=== PATIENT | male | born 1925 | race Caucasian/White ===

== ENCOUNTER 2016-03-24 14:39 | Emergency (ER) | payer MEDICARE, OTHER ==
[~2016-03-24] VITALS: Ht 165.1 cm; Wt 47.0 kg
[~2016-03-24 14:39] MED LIST: AMLO5 PO; ATOR1TAB18 PO; Aspirin Chew PO; GABA300C5 PO; IPRAAER INH; ISOS30TA3 PO; LEVA500T PO; METO25TA3 PO; MIRA25TA PO; MIRT1TAB PO; NEXI40CA PO; NITR1SUB3 SL; PLAV75TA29 PO; POLY17S PO; PRED10 PO; RANI150T PO; TAMS0.4C4 PO
[2016-03-24 14:59] VITALS: BP 148/69; PULSE 93; RESP 18; TEMP 98.3; O2SAT 94
[2016-03-24] MEDS ORDERED: NEXI40CA PO (15:12)
--- NOTE | 2016-03-24 15:29 | PD ---
HPI Chief Complaint: Headache Time Seen by Provider: 15:19 Travel History International Travel<30 days: No Contact w/Intl Traveler<30days: No Traveled to known affect area: No History of Present Illness HPI 89-year-old male with history of multiple medical issues, nursing notes reviewed , presents to the ER today because he has had several days' history of coughing with clear phlegm, sore throat, headaches, malaise, and nausea. He does not know of any sick contacts. He denies any chest pains, shortness of breath, fevers, or any other symptoms. 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) Cardiac Catheterization: Yes Cardiovascular Problems: Yes (STENT) High Cholesterol: Yes Chemotherapy: No Chest Pain: No Congestive Heart Failure: Yes COPD: Yes Cerebrovascular Accident: No Coronary Artery Disease: Yes Diabetes: Yes Diminished Hearing: Yes ([place]) Endocrine: No Gastrointestinal Disorders: Yes (DIARRHEA, CONSTGIPATION) GERD: Yes Genitourinary: Yes (FREQUENCY, INCONTINENCE) Hepatitis: No Hiatal Hernia: No Hypertension: No Immune Disorder: No Implanted Vascular Access Dvce: Yes Kidney Stones: No Musculoskeletal: No Neurologic: Yes Psychiatric: No Reproductive: No Respiratory: Yes (COPD) Immunizations Current: Yes Migraines: No Radiation Therapy: No Renal Failure: No Seizures: No Sleep Apnea: No Thyroid Disease: No Ulcer: No Past Surgical History Abdominal Surgery: No AICD: No Arteriovenous Shunt: No Body Medical Devices: HEART STENTS Cardiac Surgery: Yes (STENTS) Coronary Stent: Yes Ear Surgery: No Endocrine Surgery: No Eye Surgery: Yes (RIGHT EYE CATARACT) Genitourinary Surgery: Yes Gynecologic Surgery: No Hysterectomy: No Insulin Pump: No Joint Replacement: No Oral Surgery: Yes (T & A) Pacemaker: No Thoracic Surgery: No Other Surgery: Yes (HAD COLONOSCOPY WITH POLYPS REMOVED 04/18-BENIGN) Social History Alcohol Use: Yes (RARELY) Tobacco Use: No (QUIT 07/2008) Substance Use: No Allergies-Medications (Allergen,Severity, Reaction): Coded Allergies: No Known Allergies (Verified , 02/01/16) Reported Meds & Prescriptions Reported Meds & Active Scripts Active Levaquin (Levofloxacin) 500 Mg Tab 500 Mg PO DAILY Prednisone 10 Mg Tab 10 Mg PO DAILY Metoprolol Tartrate 25 Mg Tab 25 Mg PO BID Isosorbide Mononitrate ER (Isosorbide Mononitrate) 30 Mg Phani 90 Mg PO DAILY@07 [Aspirin Chew] 81 MG Chew 81 Mg PO DAILY Norvasc (Amlodipine Besylate) 5 Mg Tab 2.5 Mg PO DAILY@1400 Reported Nexium (Esomeprazole DR) 40 Mg Capdr 40 Mg PO DAILY Mirtazapine 7.5 Mg Tab 7.5 Mg PO HS Myrbetriq (Mirabegron) 25 Mg Tab 25 Mg PO DAILY Tamsulosin (Tamsulosin HCl) 0.4 Mg Cap 0.4 Mg PO HS Ranitidine (Ranitidine HCl) 150 Mg Tab 150 Mg PO DAILY Polyethylene Glycol 3350 Powder (Polyethylene Glycol) 17 Gm Pow 17 Gm PO DAILY Plavix (Clopidogrel Bisulfate) 75 Mg Tab 75 Mg PO DAILY Nitroglycerin SL (Nitroglycerin) 0.4 Mg Subl 0.4 Mg SL DIRECTED PRN ONE TABLET UNDER THE TONGUE NEEDED FOR CHEST PAIN, MAY REPEAT EVERY FIVE MINUTES FOR A TOTAL OF 3 DOSES OR CALL 911 IF NO RELIEF Gabapentin 300 Mg Cap 300 Mg PO HS Combivent Respimat Inh (Ipratropium-Albuterol Inh) 20-100 Chcf/Act Aero 1 Puff INH QID Atorvastatin (Atorvastatin Calcium) 80 Mg Tab 80 Mg PO HS Review of Systems Except as stated in HPI: all other systems reviewed are Neg Physical Exam Narrative GENERAL: Well-nourished, well-developed elderly white male patient in no acute distress. Awake, alert, oriented 3. SKIN: Warm and dry. HEAD: Normocephalic. EYES: No scleral icterus. No injection or drainage. ENT: Mucosa pink and moist. Mild erythema with no exudates. No uvular edema. No uvular, palatal, or tonsillar deviation. Airway patent. NECK: Supple, trachea midline. CARDIOVASCULAR: Regular rate and rhythm without murmurs, gallops, or rubs. RESPIRATORY: Breath sounds equal bilaterally. No accessory muscle use. GASTROINTESTINAL: Abdomen soft, mild diffuse tenderness without guarding or rebound, nondistended. MUSCULOSKELETAL: No cyanosis, or edema. BACK: Nontender without obvious deformity. No CVA tenderness. Data Data Last Documented VS Vital Signs Date Time Temp Pulse Resp B/P Pulse Ox O2 Delivery O2 Flow Rate FiO2 03/24/16 17:32 92 18 171/76 96 Room Air 03/24/16 14:59 98.3 Orders Complete Blood Count With Diff (03/24/16 15:20) Comprehensive Metabolic Panel (03/24/16 15:20) Blood Culture (03/24/16 15:20) Group A Rapid Strep Screen (03/24/16 15:20) Ecg Monitoring (03/24/16 15:20) Iv Access Insert/Monitor (03/24/16 15:20) Oximetry (03/24/16 15:20) Sodium Chloride 0.9% Flush (Ns Flush) (03/24/16 15:30) Ondansetron Inj (Zofran Inj) (03/24/16 15:30) Sodium Chlorid 0.9% 500 Ml Inj (Ns 500 M (03/24/16 15:30) Influenzae A/B Antigen (03/24/16 15:20) Strep Culture (Group A) (03/24/16 15:35) Chest, Single Ap (03/24/16 16:48) Labs Laboratory Tests Test 03/24/16 15:40 White Blood Count 10.9 TH/MM3 Red Blood Count 4.05 MIL/MM3 Hemoglobin 12.1 GM/DL Hematocrit 36.7 % Mean Corpuscular Volume 90.5 FL Mean Corpuscular Hemoglobin 29.9 PG Mean Corpuscular Hemoglobin 33.0 % Concent Red Cell Distribution Width 14.1 % Platelet Count 94 TH/MM3 Mean Platelet Volume 9.8 FL Neutrophils (%) (Auto) 93.4 % Lymphocytes (%) (Auto) 1.7 % Monocytes (%) (Auto) 4.4 % Eosinophils (%) (Auto) 0.4 % Basophils (%) (Auto) 0.1 % Neutrophils # (Auto) 10.2 TH/MM3 Lymphocytes # (Auto) 0.2 TH/MM3 Monocytes # (Auto) 0.5 TH/MM3 Eosinophils # (Auto) 0.0 TH/MM3 Basophils # (Auto) 0.0 TH/MM3 CBC Comment AUTO DIFF Differential Comment AUTO DIFF CONFIRMED Platelet Estimate LOW Platelet Morphology Comment NORMAL Sodium Level 141 MEQ/L Potassium Level 4.2 MEQ/L Chloride Level 105 MEQ/L Carbon Dioxide Level 27.6 MEQ/L Anion Gap 8 MEQ/L Blood Urea Nitrogen 23 MG/DL Creatinine 0.74 MG/DL Estimat Glomerular Filtration 100 ML/MIN Rate Random Glucose 126 MG/DL Calcium Level 8.0 MG/DL Total Bilirubin 0.7 MG/DL Aspartate Amino Transf 25 U/L (AST/SGOT) Alanine Aminotransferase 44 U/L (ALT/SGPT) Alkaline Phosphatase 63 U/L Total Protein 5.5 GM/DL Albumin 2.5 GM/DL MDM Medical Decision Making Medical Screen Exam Complete: Yes Emergency Medical Condition: Yes Medical Record Reviewed: Yes Interpretation(s) Laboratory Tests Test 03/24/16 15:40 Red Blood Count 4.05 MIL/MM3 (4.50-5.90) Hemoglobin 12.1 GM/DL (13.0-17.0) Hematocrit 36.7 % (39.0-51.0) Platelet Count 94 TH/MM3 (150-450) Neutrophils (%) (Auto) 93.4 % (16.0-70.0) Lymphocytes (%) (Auto) 1.7 % (9.0-44.0) Neutrophils # (Auto) 10.2 TH/MM3 (1.8-7.7) Lymphocytes # (Auto) 0.2 TH/MM3 (1.0-4.8) Blood Urea Nitrogen 23 MG/DL (7-18) Random Glucose 126 MG/DL (74-106) Calcium Level 8.0 MG/DL (8.5-10.1) Total Protein 5.5 GM/DL (6.4-8.2) Albumin 2.5 GM/DL (3.4-5.0) Differential Diagnosis Nausea, fatigue, coughing, sore throat, malaiseviral syndrome versus dehydration versus metabolic issues versus sepsis versus pneumonia versus bronchitis Narrative Course Patient doesn't have influenza or strep. Vital signs are stable in the ER. Lab work did not indicate any significant metabolic issues or dehydration. His chest x-ray is unremarkable for any signs of acute pneumonia. His suspect that some of the symptoms may be secondary to recent influenza. He may have some underlying bronchitis as well. My plan would be to treat him for bronchitis and have him follow-up with primary care physician. Return for any worsening symptoms as needed. The plan has discussed with him and he is agreeable. Diagnosis Primary Impression: Bronchitis Med/Other Pt SpecificInfo: Prescription(s) given Scripts Azithromycin (Zithromax Z-Louie)250 Mg [id number] Mg PO DIRECTED #1 DSPK Ref 0 500 MG (2 tabs) day 1, then 1 tab days 2-5. Prov:Abraham Ramirez MD 03/24/16 Disposition: 01 DISCHARGE HOME Condition: Stable Abraham Ramirez MD Mar 24, 2016 15:29
[2016-03-24 15:30] VITALS: RESP 16; O2SAT 95
[2016-03-24] MEDS ORDERED: SODIUM CHLORIDE 0.9% FLUSH 5 ML FLUSH IVF PRN (15:30)
[2016-03-24] MEDS ORDERED: SODIUM CHLORID 0.9% 500 ML INJ 500 ML IV ONE (15:30)
[2016-03-24] MEDS ORDERED: ONDANSETRON HCL 4 MG/2 ML VIAL IVP ONE (15:30)
[2016-03-24 16:03] LABS: AUTOMATED NEUTROPHIL # 10.2 TH/MM3 (1.8-7.7); BASOPHIL % 0.1 % (0.0-2.0); EOSINOPHIL % 0.4 % (0.0-4.0); HEMATOCRIT 36.7 % (39.0-51.0); LYMPH % 1.7 % (9.0-44.0); LYMPHOCYTE # 0.2 TH/MM3 (1.0-4.8); MEAN CELL VOLUME 90.5 FL (80.0-100.0); MEAN CORPUSCULAR HEMOGLOBIN 29.9 PG (27.0-34.0); MONO % 4.4 % (0.0-8.0); NEUT % 93.4 % (16.0-70.0); PLATELET COUNT 94 TH/MM3 (150-450); RED BLOOD COUNT 4.05 MIL/MM3 (4.50-5.90); RED CELL DISTRIBUTION WIDTH 14.1 % (11.6-17.2); WHITE BLOOD COUNT 10.9 TH/MM3 (4.0-11.0)
[2016-03-24 16:09] LABS: HEMO FLAGS AUTO DIFF
[2016-03-24 16:12] LABS: CHLORIDE 105 MEQ/L (98-107); POTASSIUM 4.2 MEQ/L (3.5-5.1); SODIUM (NA) 141 MEQ/L (136-145)
[2016-03-24 16:15] LABS: ANION GAP 8 MEQ/L (5-15); BICARBONATE 27.6 MEQ/L (21.0-32.0)
[2016-03-24 16:16] LABS: BLOOD UREA NITROGEN 23 MG/DL (7-18)
[2016-03-24 16:18] LABS: ALT (GPT) 44 U/L (12-78)
[2016-03-24 16:19] LABS: AST (GOT) 25 U/L (15-37); GLOMERULAR FILTRATION RATE 100 ML/MIN (>89)
[2016-03-24 16:20] LABS: TOTAL BILIRUBIN ADULT 0.7 MG/DL (0.2-1.0)
[2016-03-24 16:21] LABS: ALKALINE PHOSPHATASE 63 U/L (45-117)
[2016-03-24 16:34] VITALS: BP 102/57; PULSE 78; RESP 18; O2SAT 97
[2016-03-24 17:05] LABS: PLATELET ESTIMATE SMEAR LOW (NORMAL); PLATELET MORPHOLOGY NORMAL (NORMAL); SCAN/DIFF AUTO DIFF CONFIRMED
[2016-03-24 17:32] VITALS: BP 171/76; PULSE 92; RESP 18; O2SAT 96
--- NOTE | 2016-03-24 17:40 | RADHPO ---
EXAM DATE/TIME: 03/24/2016 17:19 [facility] COMPARISON: CHEST SINGLE AP, February 01, 2016, 18:35. INDICATIONS : Cough. MEDICAL HISTORY : Congestive heart failure. Hypercholesterolemia. Chronic obstructive pulmonary disease. CAD, PVD, Hyperlipidemia, GERD, Enlarged prostate, Diabetes, Skin cancer SURGICAL HISTORY : Coronary artery stent. Angioplasty ENCOUNTER: Initial ACUITY: 3 months PAIN SCORE: 0/10 LOCATION: Bilateral chest FINDINGS: The heart and mediastinal structures are normal. The pulmonary vascular pattern is normal. The lungs are clear. CONCLUSION: No acute cardiopulmonary disease. John Carias MD on March 24, 2016 at 17:37 Board Certified Radiologist. This report was verified electronically.
[2016-03-24] MEDS ORDERED: ZITHTAB PO (17:43)
== END 2016-03-24 18:09 | disposition home or self-care (01) ==
LOC: PHED 14:39
DX: J40 Bronchitis, not specified as acute or chronic (principal); R51 Headache; E78.00 Pure hypercholesterolemia, unspecified; J44.9 Chronic obstructive pulmonary disease, unspecified; I50.9 Heart failure, unspecified; I25.10 Atherosclerotic heart disease of native coronary artery without angina pectoris; E11.9 Type 2 diabetes mellitus without complications; K21.9 Gastro-esophageal reflux disease without esophagitis; Z79.01 Long term (current) use of anticoagulants; Z87.891 Personal history of nicotine dependence
CPT/HCPCS: 71010; 80053; 85025; 87040; 87081; 87804; 87880; 96360; 99284; J7040

== ENCOUNTER 2016-10-21 16:14 | Observation (INO) | payer MEDICARE, OTHER ==
[~2016-10-21] VITALS: Ht 167.6 cm; Wt 47.2 kg
[2016-10-21] VITALS (8 sets, daily range): BP systolic 118–203; BP diastolic 52–85; PULSE 60–71; RESP 15–20; TEMP 97.7–97.8; O2SAT 95–100
[~2016-10-21 16:14] MED LIST changes: +ZITHTAB PO
[2016-10-21] MEDS ORDERED: IPRASOL INH (16:30)
[2016-10-21] MEDS ORDERED: ASPI-110 PO (16:30)
[2016-10-21] MEDS: RESP: ALBUTEROL 2.5 MG/IPRATROPIUM 0.5 MG NEB (SCH) INH (16:43)
[2016-10-21] MEDS ORDERED: SODIUM CHLORIDE 0.9% FLUSH 10 ML FLUSH IVF PRN (16:45)
[2016-10-21] MEDS ORDERED: ASPIRIN 81 MG CHEW TAB PO ONE (16:45)
[2016-10-21] MEDS ORDERED: methylPREDNISolone SOD SUCC 125 MG/2 ML VIAL IVP ONE (16:45)
[2016-10-21 17:20] LABS: AUTOMATED NEUTROPHIL # 5.8 TH/MM3 (1.8-7.7); BASOPHIL # 0.1 TH/MM3 (0-0.2); BASOPHIL % 0.7 % (0.0-2.0); EOSINOPHIL # 0.1 TH/MM3 (0-0.4); EOSINOPHIL % 1.2 % (0.0-4.0); HEMATOCRIT 42.1 % (39.0-51.0); HEMO FLAGS DIFF FINAL; LYMPH % 26.2 % (9.0-44.0); LYMPHOCYTE # 2.3 TH/MM3 (1.0-4.8); MEAN CELL VOLUME 89.7 FL (80.0-100.0); MEAN CORPUSCULAR HEMOGLOBIN 28.7 PG (27.0-34.0); NEUT % 64.9 % (16.0-70.0); PLATELET COUNT 128 TH/MM3 (150-450); RED BLOOD COUNT 4.69 MIL/MM3 (4.50-5.90); RED CELL DISTRIBUTION WIDTH 14.2 % (11.6-17.2); WHITE BLOOD COUNT 8.9 TH/MM3 (4.0-11.0)
[2016-10-21 17:23] LABS: APTT (PATIENT) 26.4 SEC (24.3-30.1); PROTHROMBIN TIME - PATIENT 10.9 SEC (9.8-11.6)
[2016-10-21 17:27] LABS: CHLORIDE 105 MEQ/L (98-107); POTASSIUM 4.4 MEQ/L (3.5-5.1); SODIUM (NA) 140 MEQ/L (136-145)
[2016-10-21 17:31] LABS: ANION GAP 6 MEQ/L (5-15); BICARBONATE 28.7 MEQ/L (21.0-32.0); BLOOD UREA NITROGEN 25 MG/DL (7-18); MAGNESIUM 2.2 MG/DL (1.5-2.5)
[2016-10-21 17:34] LABS: ALT (GPT) 40 U/L (12-78); AST (GOT) 35 U/L (15-37); GLOMERULAR FILTRATION RATE 76 ML/MIN (>89)
[2016-10-21 17:35] LABS: TOTAL BILIRUBIN ADULT 0.5 MG/DL (0.2-1.0)
[2016-10-21 17:37] LABS: ALKALINE PHOSPHATASE 74 U/L (45-117); CREATINE KINASE 132 U/L (39-308)
--- NOTE | 2016-10-21 17:41 | RADRPT ---
EXAM DATE/TIME: 10/21/2016 16:53 [facility] COMPARISON: CHEST SINGLE AP, March 24, 2016, 17:19. INDICATIONS : Short of breath. MEDICAL HISTORY : None. SURGICAL HISTORY : None. ENCOUNTER: Initial ACUITY: 1 day PAIN SCORE: 6/10 LOCATION: Bilateral chest FINDINGS: Single AP view of the chest. The lungs are clear. Cardiomediastinal silhouette within normal limits. No evidence of pleural effusion or pneumothorax. CONCLUSION: No acute cardiopulmonary disease identified. James Benedict MD on October 21, 2016 at 17:38 Board Certified Radiologist. This report was verified electronically.
[2016-10-21 17:49] LABS: CKMB 3.3 NG/ML (0.5-3.6)
--- NOTE | 2016-10-21 18:01 | PD ---
HPI Chief Complaint: Respiratory Symptoms Time Seen by Provider: 16:29 Travel History International Travel<30 days: No Contact w/Intl Traveler<30days: No Traveled to known affect area: No History of Present Illness HPI 89-year-old male with history of COPD, PVD, CAD, here for evaluation of shortness of breath and palpitations. Patient also relays feeling intermittent chest pressure for the last 5 days. He has had a cough productive of yellowish sputum. No fevers. Currently he is feeling a slight substernal chest pressure. Pain is nonradiating. No modifying factors. PFSH Past Medical History Hx Anticoagulant Therapy: Yes Arthritis: No Asthma: No Autoimmune Disease: No Heart Rhythm Problems: Yes (UNKNOWN) Cancer: Yes ([place] OF SKIN REMOVED) Cardiac Catheterization: Yes Cardiovascular Problems: Yes (STENT) High Cholesterol: Yes Chemotherapy: No Chest Pain: No Congestive Heart Failure: Yes COPD: Yes Cerebrovascular Accident: No Coronary Artery Disease: Yes Diabetes: Yes Patient Takes Glucophage: No Diminished Hearing: Yes ([place]) Endocrine: No Gastrointestinal Disorders: Yes (DIARRHEA, CONSTGIPATION) GERD: Yes Genitourinary: Yes (FREQUENCY, INCONTINENCE) Headaches: No Hepatitis: No Hiatal Hernia: No Hypertension: Yes Immune Disorder: No Implanted Vascular Access Dvce: Yes Kidney Stones: No Medical other: Yes (BPH,FREQUENT URINATION WHEN LYING DOWN,GERD) Musculoskeletal: No Neurologic: Yes Psychiatric: No Reproductive: No Respiratory: Yes (COPD) Immunizations Current: Yes Migraines: No Radiation Therapy: No Renal Failure: No Seizures: No Sleep Apnea: No Thyroid Disease: No Ulcer: No Influenza Vaccination: Yes ?: Not Past Surgical History Abdominal Surgery: No AICD: No Arteriovenous Shunt: No Body Medical Devices: HEART STENTS Cardiac Surgery: Yes (STENTS) Coronary Stent: Yes Ear Surgery: No Endocrine Surgery: No Eye Surgery: Yes (RIGHT EYE CATARACT) Genitourinary Surgery: Yes Gynecologic Surgery: No Hysterectomy: No Insulin Pump: No Joint Replacement: No Neurologic Surgery: No Oral Surgery: Yes (T & A) Pacemaker: No Thoracic Surgery: No Other Surgery: Yes (HAD COLONOSCOPY WITH POLYPS REMOVED 04/18-BENIGN) Family History Family Myocardial Infarction: Yes (MOTHER & FATHER) Social History Alcohol Use: Yes (RARELY) Tobacco Use: No (QUIT 07/2008) Substance Use: No Allergies-Medications (Allergen,Severity, Reaction): Coded Allergies: No Known Allergies (Verified , 10/21/16) Reported Meds & Prescriptions Reported Meds & Active Scripts Active Metoprolol Tartrate 25 Mg Tab 25 Mg PO BID Isosorbide Mononitrate ER (Isosorbide Mononitrate) 30 Mg Phani 90 Mg PO DAILY@07 Norvasc (Amlodipine Besylate) 5 Mg Tab 2.5 Mg PO DAILY@1400 Reported Duoneb (Ipratropium-Albuterol Neb) 0.5-2.5 Mg/3 Ml Neb 1 Nebule INH BID Aspirin 81 (Aspirin) 81 Mg Tabdr 81 Mg PO DAILY Nexium (Esomeprazole DR) 40 Mg Capdr 40 Mg PO DAILY Mirtazapine 7.5 Mg Tab 15 Mg PO HS Myrbetriq (Mirabegron) 25 Mg Tab 25 Mg PO DAILY Ranitidine (Ranitidine HCl) 150 Mg Tab 150 Mg PO DAILY Polyethylene Glycol 3350 Powder (Polyethylene Glycol) 17 Gm Pow 17 Gm PO DAILY Plavix (Clopidogrel Bisulfate) 75 Mg Tab 75 Mg PO DAILY Nitroglycerin SL (Nitroglycerin) 0.4 Mg Subl 0.4 Mg SL DIRECTED PRN ONE TABLET UNDER THE TONGUE NEEDED FOR CHEST PAIN, MAY REPEAT EVERY FIVE MINUTES FOR A TOTAL OF 3 DOSES OR CALL 911 IF NO RELIEF Gabapentin 300 Mg Cap 300 Mg PO HS Combivent Respimat Inh (Ipratropium-Albuterol Inh) 20-100 Long-Term/Act Aero 1 Puff INH QID Atorvastatin (Atorvastatin Calcium) 80 Mg Tab 80 Mg PO HS Review of Systems Except as stated in HPI: all other systems reviewed are Neg Physical Exam Narrative GENERAL: Well-developed, well-nourished, elderly-appearing male, comfortable, no acute distress. SKIN: Focused skin assessment warm/dry. Dry/scaly skin to bilateral upper and lower extremities. HEAD: Atraumatic. Normocephalic. EYES: Pupils equal and round. No scleral icterus. No injection or drainage. ENT: No nasal bleeding or discharge. Mucous membranes pink and moist. NECK: Trachea midline. No JVD. CARDIOVASCULAR: Regular rate and rhythm. Normal capillary refill in all 4 extremities. RESPIRATORY: No accessory muscle use. Inspiratory and expiratory wheezes bilaterally. Breath sounds equal bilaterally. No respiratory distress. GASTROINTESTINAL: Abdomen soft, nontender, nondistended. MUSCULOSKELETAL: No obvious deformities. No clubbing. No cyanosis. No edema. NEUROLOGICAL: Awake and alert. No obvious cranial nerve deficits. Motor grossly within normal limits. Normal speech. PSYCHIATRIC: Appropriate mood and affect; insight and judgment normal. Data Data Last Documented VS Vital Signs Date Time Temp Pulse Resp B/P (MAP) Pulse Ox O2 Delivery O2 Flow Rate FiO2 10/21/16 16:45 60 20 137/60 (85) 98 Room Air 10/21/16 16:23 97.7 Orders Orders Electrocardiogram (10/21/16 16:37) Ckmb (Isoenzyme) Profile (10/21/16 16:37) Complete Blood Count With Diff (10/21/16 16:37) Comprehensive Metabolic Panel (10/21/16 16:37) Magnesium (Mg) (10/21/16 16:37) Prothrombin Time / Inr (Pt) (10/21/16 16:37) Act Partial Throm Time (Ptt) (10/21/16 16:37) Troponin I (10/21/16 16:37) Lipase (10/21/16 16:37) Chest, Single Ap (10/21/16 16:37) Ecg Monitoring (10/21/16 16:37) Bilateral Bp Monitoring (10/21/16 16:37) Iv Access Insert/Monitor (10/21/16 16:37) Oximetry (10/21/16 16:37) Aspirin Chew (Aspirin Chew) (10/21/16 16:45) Sodium Chloride 0.9% Flush (Ns Flush) (10/21/16 16:45) Methylprednisolone So Succ Inj (Solumedr (10/21/16 16:45) Albuterol-Ipratropium Neb (Duoneb Neb) (10/21/16 16:45) CKMB (10/21/16 16:30) CKMB% (10/21/16 16:30) Levofloxacin (Levaquin) (10/21/16 18:30) Place In Observation (10/21/16 ) Vital Signs (Adult) Q4H (10/21/16 18:19) Activity Oob With Assistance (10/21/16 18:19) [place] / Telemetry .CONTINUOUS (10/21/16 18:19) Diet Heart Healthy (10/21/16 Dinner) Sodium Chloride 0.9% Flush (Ns Flush) (10/21/16 18:30) Sodium Chloride 0.9% Flush (Ns Flush) (10/21/16 21:00) Ondansetron Inj (Zofran Inj) (10/21/16 18:30) Comprehensive Metabolic Panel (10/22/16 06:00) Complete Blood Count With Diff (10/22/16 06:00) Enoxaparin Inj (Lovenox Inj) (10/21/16 18:30) Scd Bilateral/Knee High [place].BID (10/21/16 18:19) Morphine Inj (Morphine Inj) (10/21/16 18:30) Naloxone Inj (Narcan Inj) (10/21/16 18:30) Sennosides (Senokot) (10/21/16 18:30) Lactulose Liq (Lactulose Liq) (10/21/16 18:30) Admit Order (Ed Use Only) (10/21/16 18:22) Amlodipine (Norvasc) (10/22/16 14:00) Aspirin Ec (Ecotrin Ec) (10/22/16 09:00) Atorvastatin (Lipitor) (10/21/16 21:00) Clopidogrel (Plavix) (10/22/16 09:00) Gabapentin (Neurontin) (10/21/16 21:00) Isosorbide Mononitrate (Imdur) (10/22/16 07:00) Metoprolol Tartrate (Lopressor) (10/21/16 21:00) Mirtazapine (Remeron) (10/21/16 21:00) Polyethylene Glycol (Miralax) (10/22/16 09:00) (Nf) Esomeprazole Dr (Nexium) (10/22/16 09:00) (Nf) Mirabegron (Myrbetriq) (10/22/16 09:00) (Nf) Ranitidine (10/22/16 09:00) Labs Laboratory Tests Test 10/21/16 16:30 White Blood Count 8.9 TH/MM3 Red Blood Count 4.69 MIL/MM3 Hemoglobin 13.5 GM/DL Hematocrit 42.1 % Mean Corpuscular Volume 89.7 FL Mean Corpuscular Hemoglobin 28.7 PG Mean Corpuscular Hemoglobin Concent 32.0 % Red Cell Distribution Width 14.2 % Platelet Count 128 TH/MM3 Mean Platelet Volume 12.0 FL Neutrophils (%) (Auto) 64.9 % Lymphocytes (%) (Auto) 26.2 % Monocytes (%) (Auto) 7.0 % Eosinophils (%) (Auto) 1.2 % Basophils (%) (Auto) 0.7 % Neutrophils # (Auto) 5.8 TH/MM3 Lymphocytes # (Auto) 2.3 TH/MM3 Monocytes # (Auto) 0.6 TH/MM3 Eosinophils # (Auto) 0.1 TH/MM3 Basophils # (Auto) 0.1 TH/MM3 CBC Comment DIFF FINAL Differential Comment Prothrombin Time 10.9 SEC Prothromb Time International Ratio 1.0 RATIO Activated Partial Thromboplast Time 26.4 SEC Blood Urea Nitrogen 25 MG/DL Creatinine 0.94 MG/DL Random Glucose 113 MG/DL Total Protein 7.4 GM/DL Albumin 3.5 GM/DL Calcium Level 9.0 MG/DL Magnesium Level 2.2 MG/DL Alkaline Phosphatase 74 U/L Aspartate Amino Transf (AST/SGOT) 35 U/L Alanine Aminotransferase (ALT/SGPT) 40 U/L Total Bilirubin 0.5 MG/DL Sodium Level 140 MEQ/L Potassium Level 4.4 MEQ/L Chloride Level 105 MEQ/L Carbon Dioxide Level 28.7 MEQ/L Anion Gap 6 MEQ/L Estimat Glomerular Filtration Rate 76 ML/MIN Total Creatine Kinase 132 U/L Creatine Kinase MB 3.3 NG/ML Troponin I LESS THAN 0.02 NG/ML Lipase 197 U/L MDM Medical Decision Making Medical Screen Exam Complete: Yes Emergency Medical Condition: Yes Medical Record Reviewed: Yes Interpretation(s) EKG: Sinus, rate 59, normal axis, incomplete RBBB, Q waves in septal leads, no acute ischemic abnormalities. Essentially unchanged from prior. Differential Diagnosis COPD exacerbation, ACS, pneumothorax, peritonitis, PE, pneumonia, bronchitis Narrative Course Vital signs show heart rate 60, blood pressure 137/60, pulse ox 98% on room air , oral temp of 97.7F. CBC is unremarkable. CMP is unremarkable. Lipase is 197. Cardiac enzymes are negative. Chest x-ray: No acute cardiopulmonary disease. Patient was given 3 DuoNeb treatments and IV Solu-Medrol with resolution of wheezing. Case discussed with scout professional sports Dr. Ramirez covering for Dr. Torres the patient' s [employer], and recommends that the patient be admitted to the chest pain center for further cardiac evaluation. Case discussed with hospitalist Dr. Clifford who will admit the patient to his service to the chest pain center. The patient will also be given a dose of Levaquin for his cough productive of yellowish sputum, likely bronchitis. The patient and the patient's significant other were made aware of all findings and plan for admission to the chest pain center. Diagnosis Primary Impression: Chest pain Qualified Codes: R07.9 - Chest pain, unspecified Additional Impression: COPD exacerbation Admitting Information Admitting Physician Requests: Ravindra Cantor MD Oct 21, 2016 18:01
[2016-10-21] MEDS ORDERED: LACTULOSE SYRUP 20 GM/30 ML CUP PO PRN (18:30)
[2016-10-21] MEDS ORDERED: NALOXONE HCL 0.4 MG/ML AMP IV PRN (18:30)
[2016-10-21] MEDS ORDERED: LEVOFLOXACIN 500 MG TAB PO ONE (18:30)
[2016-10-21] MEDS ORDERED: SODIUM CHLORIDE 0.9% FLUSH 10 ML FLUSH IV FLUSH PRN (18:30)
[2016-10-21] MEDS ORDERED: SENNOSIDES 8.6 MG TAB PO PRN (18:30)
[2016-10-21] MEDS ORDERED: MORPHINE SULFATE 4 MG/ML INJ IV PRN (18:30)
[2016-10-21] MEDS ORDERED: ONDANSETRON HCL 4 MG/2 ML VIAL IVP PRN (18:30)
--- NOTE | 2016-10-21 18:51 | HHI.HP ---
[facility] Rey Cotter MD Admission Diagnosis Chest pain, COPD exacerbation Diagnoses: Travel History International Travel<30 Days: No Contact w/Intl Traveler <30 Da: No Traveled to Known Affected Are: No History of Present Illness Mr. Saravia is an 89-year-old male. He came into the emergency department today complaining of respiratory symptoms. These included wheezing and coughing. Cough has been productive. He also reported an upper chest pain. History of coronary artery disease. Hypertensive urgency was present admitted but has improved with control of his respiratory symptoms. She does not report exertional related chest pain and did not have recurrent episodes of chest pain. No chest pain is present when I saw him in the emergency department. He does have elements of a COPD exacerbation. COPD exacerbation could be causing his chest pain but he is at risk for infarction as well given a heavy burden of ischemic disease. She denies any vomiting or diarrhea. No fevers reported. Chest x-ray shows no evidence of pneumonia. Review of Systems Constitutional: DENIES: Fever, Chills, Dizziness, Change in appetite Endocrine: DENIES: Heat/cold intolerance, Polydipsia, Polyuria Eyes: DENIES: Blurred vision, Diplopia, Eye pain Ears, nose, mouth, throat: DENIES: Tinnitus, Hearing loss, Vertigo Respiratory: COMPLAINS OF: Cough, Wheezing, Sputum production, Shortness of breath Cardiovascular: COMPLAINS OF: Chest pain, Palpitations, DENIES: Syncope Gastrointestinal: DENIES: Abdominal pain, Black stools, Bloody stools Musculoskeletal: DENIES: Joint pain, Muscle aches, Stiffness Integumentary: DENIES: Abnormal pigmentation, Nail changes, Pruritus Hematologic/lymphatic: DENIES: Bruising Immunologic/allergic: DENIES: Eczema Neurologic: DENIES: Abnormal gait, Headache Psychiatric: DENIES: Anxiety, Confusion, Hallucinations Past Family Social History Past Medical History Coronary artery disease Hyperlipidemia Congestive heart failure COPD Diabetes mellitus type 2 History constipation Gastroesophageal reflux disease Urinary incontinence next line hypertension BPH Past Surgical History Coronary stents Right eye cataract surgery History of genitourinary surgery (prostate) Tonsillectomy Reported Medications Reported Meds & Active Scripts Active Metoprolol Tartrate 25 Mg Tab 25 Mg PO BID Isosorbide Mononitrate ER (Isosorbide Mononitrate) 30 Mg Phani 90 Mg PO DAILY@07 Norvasc (Amlodipine Besylate) 5 Mg Tab 2.5 Mg PO DAILY@1400 Reported Duoneb (Ipratropium-Albuterol Neb) 0.5-2.5 Mg/3 Ml Neb 1 Nebule INH BID Aspirin 81 (Aspirin) 81 Mg Tabdr 81 Mg PO DAILY Nexium (Esomeprazole DR) 40 Mg Capdr 40 Mg PO DAILY Mirtazapine 7.5 Mg Tab 15 Mg PO HS Myrbetriq (Mirabegron) 25 Mg Tab 25 Mg PO DAILY Ranitidine (Ranitidine HCl) 150 Mg Tab 150 Mg PO DAILY Polyethylene Glycol 3350 Powder (Polyethylene Glycol) 17 Gm Pow 17 Gm PO DAILY Plavix (Clopidogrel Bisulfate) 75 Mg Tab 75 Mg PO DAILY Nitroglycerin SL (Nitroglycerin) 0.4 Mg Subl 0.4 Mg SL DIRECTED PRN ONE TABLET UNDER THE TONGUE NEEDED FOR CHEST PAIN, MAY REPEAT EVERY FIVE MINUTES FOR A TOTAL OF 3 DOSES OR CALL 911 IF NO RELIEF Gabapentin 300 Mg Cap 300 Mg PO HS Combivent Respimat Inh (Ipratropium-Albuterol Inh) 20-100 Long Term/Act Aero 1 Puff INH QID Atorvastatin (Atorvastatin Calcium) 80 Mg Tab 80 Mg PO HS Allergies: Coded Allergies: No Known Allergies (Verified , 10/21/16) Active Ordered Medications Administered Medications Medications (Trade) Dose Ordered Sig/Danna Route PRN Reason Start Time Stop Time Status Last Admin Dose Admin Sodium Chloride (NS Flush) 2 ml UNSCH PRN IVF FLUSH AFTER USING IV ACCESS 10/21/16 16:45 10/21/16 16:50 Family History Myocardial infarction in mother Myocardial infarction in father Social History Rare alcohol use No illicit drug abuse Tobacco use, patient quit in 2008 Physical Exam Vital Signs Vital Signs Date Time Temp Pulse Resp B/P (MAP) Pulse Ox O2 Delivery O2 Flow Rate FiO2 10/21/16 16:45 60 20 137/60 (85) 98 Room Air 10/21/16 16:35 64 22 97 Room Air 10/21/16 16:23 97.7 67 18 203/77 (119) 100 Physical Exam GENERAL: This is a well-nourished, well-developed patient, in no apparent distress. SKIN: No rashes, ecchymoses or lesions. Cool and dry. HEAD: Atraumatic. Normocephalic. No temporal or scalp tenderness. EYES: Pupils equal round and reactive. Extraocular motions intact. No scleral icterus. No injection or drainage. ENT: Nose without bleeding, purulent drainage or septal hematoma. Throat without erythema, tonsillar hypertrophy or exudate. Uvula midline. Airway patent. NECK: Trachea midline. No JVD or lymphadenopathy. Supple, nontender, no meningeal signs. CARDIOVASCULAR: Regular rate and rhythm without murmurs, gallops, or rubs. RESPIRATORY: Clear to auscultation. Breath sounds equal bilaterally. No wheezes , rales, or rhonchi. GASTROINTESTINAL: Abdomen soft, non-tender, nondistended. No hepato-splenomegaly , or palpable masses. No guarding. MUSCULOSKELETAL: Extremities without clubbing, cyanosis, or edema. No joint tenderness, effusion, or edema noted. No calf tenderness. Negative Homans sign bilaterally. NEUROLOGICAL: Awake and alert. Cranial nerves II through XII intact. Motor and sensory grossly within normal limits. Five out of 5 muscle strength in all muscle groups. Normal speech. Laboratory Laboratory Tests Test 10/21/16 16:30 White Blood Count 8.9 Red Blood Count 4.69 Hemoglobin 13.5 Hematocrit 42.1 Mean Corpuscular Volume 89.7 Mean Corpuscular Hemoglobin 28.7 Mean Corpuscular Hemoglobin Concent 32.0 Red Cell Distribution Width 14.2 Platelet Count 128 Mean Platelet Volume 12.0 Neutrophils (%) (Auto) 64.9 Lymphocytes (%) (Auto) 26.2 Monocytes (%) (Auto) 7.0 Eosinophils (%) (Auto) 1.2 Basophils (%) (Auto) 0.7 Neutrophils # (Auto) 5.8 Lymphocytes # (Auto) 2.3 Monocytes # (Auto) 0.6 Eosinophils # (Auto) 0.1 Basophils # (Auto) 0.1 CBC Comment DIFF FINAL Differential Comment Prothrombin Time 10.9 Prothromb Time International Ratio 1.0 Activated Partial Thromboplast Time 26.4 Blood Urea Nitrogen 25 Creatinine 0.94 Random Glucose 113 Total Protein 7.4 Albumin 3.5 Calcium Level 9.0 Magnesium Level 2.2 Alkaline Phosphatase 74 Aspartate Amino Transf (AST/SGOT) 35 Alanine Aminotransferase (ALT/SGPT) 40 Total Bilirubin 0.5 Sodium Level 140 Potassium Level 4.4 Chloride Level 105 Carbon Dioxide Level 28.7 Anion Gap 6 Estimat Glomerular Filtration Rate 76 Total Creatine Kinase 132 Creatine Kinase MB 3.3 Troponin I LESS THAN 0.02 Lipase 197 Result Diagram: 10/21/16 1630 10/21/16 1630 Imaging Last Impressions Chest X-Ray 10/21/16 1637 Signed Impressions: Service Date/Time: Friday, October 21, 2016 16:53 - CONCLUSION: No acute cardiopulmonary disease identified. MD Elen Mora VTE Risk Assessment Elen VTE Risk Assessment: Mod/High Risk (score >= 2) Caprini Risk Assessment Model Point Value = 1 Point Value = 2 Point Value = 3 Point Value = 5 Age 41-60 Minor surgery BMI > 25 kg/m2 Swollen legs Varicose veins or History of unexplained or recurrent spontaneous Oral contraceptives or hormone replacement Sepsis (< 1 month) Serious lung disease, including pneumonia (< 1 month) Abnormal pulmonary function Acute myocardial infarction Congestive heart failure (< 1 month) History of inflammatory bowel disease Medical patient at bed rest Age 61-74 Arthroscopic surgery Major open surgery (> 45 min) Laparoscopic surgery (> 45 min) Malignancy Confined to bed (> 72 hours) Immobilizing plaster cast Central venous access Age >= 75 History of VTE Family history of VTE Factor V Leiden Prothrombin [id number] Lupus anticoagulant Anticardiolipin antibodies Elevated serum homocysteine Heparin-induced thrombocytopenia Other congenital or acquired thrombophilia Stroke (< 1 month) Elective arthroplasty Hip, pelvis, or leg fracture Acute spinal cord injury (< 1 month) Prophylaxis Regimen Total Risk Factor Score Risk Level Prophylaxis Regimen 0-1 Low Early ambulation 2 Moderate Order ONE of the following: *Sequential Compression Device (SCD) *Heparin 5000 units SQ BID 3-4 Higher Order ONE of the following medications: *Heparin 5000 units SQ TID *Enoxaparin/Lovenox 40 mg SQ daily (WT < 150 kg, CrCl > 30 mL/min) *Enoxaparin/Lovenox 30 mg SQ daily (WT < 150 kg, CrCl > 10-29 mL/min) *Enoxaparin/Lovenox 30 mg SQ BID (WT < 150 kg, CrCl > 30 mL/min) AND/OR *Sequential Compression Device (SCD) 5 or more Highest Order ONE of the following medications: *Heparin 5000 units SQ TID (Preferred with Epidurals) *Enoxaparin/Lovenox 40 mg SQ daily (WT < 150 kg, CrCl > 30 mL/min) *Enoxaparin/Lovenox 30 mg SQ daily (WT < 150 kg, CrCl > 10-29 mL/min) *Enoxaparin/Lovenox 30 mg SQ BID (WT < 150 kg, CrCl > 30 mL/min) AND *Sequential Compression Device (SCD) Assessment and Plan Problem List: (1) Hyperlipidemia ICD Code: E78.5 - Hyperlipidemia, unspecified Status: Acute (2) Hypertension ICD Code: I10 - Essential (primary) hypertension Status: Acute (3) COPD (chronic obstructive pulmonary disease) ICD Code: J44.9 - Chronic obstructive pulmonary disease, unspecified Status: Acute (4) CAD (coronary artery disease) ICD Code: I25.10 - Atherosclerotic heart disease of [place] coronary artery without angina pectoris Status: Acute (5) Chest pain ICD Code: R07.9 - Chest pain, unspecified Status: Acute (6) COPD exacerbation ICD Code: J44.1 - Chronic obstructive pulmonary disease with (acute) exacerbation Status: Acute (7) Bronchitis ICD Code: J40 - Bronchitis, not specified as acute or chronic Status: Acute Assessment and Plan Assessment and plan 89-year-old male admitted secondary to bronchitis with COPD exacerbation and chest pain Chest pain Coronary artery disease CHF Evaluate for ACS Follow cardiac enzymes Aspirin daily When necessary oxygen When necessary morphine for pain. When necessary nitroglycerin Follow on telemetry Cardiology consult Continue Plavix Bronchitis COPD exacerbation Continue oxygen supplements as needed Schedule duo nebs When necessary albuterol Levaquin Systemic steroids not yet provided until cardiac infarction is ruled out Follow for improvement in respiratory status Follow for improvement in exertional tolerance next Hyperlipidemia Continue statin Fasting lipid profile in a.m. Diabetes mellitus type 2 Follow blood sugars Insulin sliding scale Diabetic diet History constipation Follow clinically Laxatives if needed Gastroesophageal reflux disease Continue baseline treatment Follow clinically Hypertension Follow for any recurrence of hypertensive urgency Monitor blood pressures Continue baseline blood pressure treatments BPH Follow clinically DVT prophylaxis Lovenox SCDs Problem Qualifiers (1) Chest pain: Qualified Codes: R07.9 - Chest pain, unspecified Wagner Clifford MD Oct 21, 2016 18:51
[2016-10-21] MEDS ORDERED: DEXTROSE 50% IN WATER 50 ML VIAL(D50) IV PRN (19:00)
[2016-10-21] MEDS ORDERED: GLUCAGON 1 MG/ML VIAL OTHER PRN (19:00)
[2016-10-21] MEDS ORDERED: PILL SPLITTER OTHER PRN (19:15)
[2016-10-21] MEDS: ENOXAPARIN SODIUM 40 MG/0.4 ML SYRINGE SQ SCH (20:02)
[2016-10-21] MEDS: SODIUM CHLORIDE 0.9% FLUSH 10 ML FLUSH IV FLUSH SCH (21:00)
[2016-10-21] MEDS: MIRTAZAPINE 15 MG TAB PO SCH (22:06)
[2016-10-21] MEDS: METOPROLOL TARTRATE 25 MG TAB PO SCH (22:07)
[2016-10-21] MEDS: ATORVASTATIN 40 MG TAB PO SCH (22:07)
[2016-10-21] MEDS: GABAPENTIN 300 MG CAP PO SCH (22:07)
[2016-10-21] MEDS: INSULIN ASPART SUPPLEMENTAL SCALE SQ SCH (22:13)
[2016-10-22] VITALS (13 sets, daily range): BP systolic 133–213; BP diastolic 58–101; PULSE 54–93; RESP 14–41; TEMP 97.6–98; O2SAT 95–99
[2016-10-22 05:56] LABS: AUTOMATED NEUTROPHIL # 4.2 TH/MM3 (1.8-7.7); BASOPHIL % 0.3 % (0.0-2.0); HEMATOCRIT 37.2 % (39.0-51.0); HEMO FLAGS DIFF FINAL; LYMPH % 19.5 % (9.0-44.0); MEAN CELL VOLUME 87.8 FL (80.0-100.0); MEAN CORPUSCULAR HEMOGLOBIN 28.3 PG (27.0-34.0); MEAN CORPUSCULAR HGB CONC 32.3 % (32.0-36.0); MONO % 1.5 % (0.0-8.0); NEUT % 78.7 % (16.0-70.0); PLATELET COUNT 100 TH/MM3 (150-450); RED BLOOD COUNT 4.24 MIL/MM3 (4.50-5.90); RED CELL DISTRIBUTION WIDTH 13.3 % (11.6-17.2); WHITE BLOOD COUNT 5.4 TH/MM3 (4.0-11.0)
[2016-10-22 06:08] LABS: CHLORIDE 108 MEQ/L (98-107); POTASSIUM 4.1 MEQ/L (3.5-5.1); SODIUM (NA) 141 MEQ/L (136-145)
[2016-10-22] MEDS: ISOSORBIDE MONONITRATE 30 MG TAB PO SCH (06:38)
[2016-10-22] MEDS: INSULIN ASPART SUPPLEMENTAL SCALE SQ SCH ×4 (07:00→21:00)
[2016-10-22 07:19] LABS: ALKALINE PHOSPHATASE 60 U/L (45-117); ALT (GPT) 37 U/L (12-78); ANION GAP 8 MEQ/L (5-15); AST (GOT) 28 U/L (15-37); BLOOD UREA NITROGEN 24 MG/DL (7-18); GLOMERULAR FILTRATION RATE 87 ML/MIN (>89); TOTAL BILIRUBIN ADULT 0.5 MG/DL (0.2-1.0)
[2016-10-22] MEDS ORDERED: MIRABEGRON 25 MG PO SCH (09:00)
[2016-10-22] MEDS: LACTOBACILLUS ACIDOPHILUS TAB PO SCH ×3 (09:00→18:00)
--- NOTE | 2016-10-22 09:42 | EKG ---
Date Performed: 10/21/2016 Time Performed: 16:28:52 PTAGE: 89 years EKG: SINUS BRADYCARDIA POSSIBLE LEFT ATRIAL ENLARGEMENT INCOMPLETE RIGHT BUNDLE BRANCH BLOCK LEF T ANTERIOR FASCICULAR BLOCK POSSIBLE SEPTAL MYOCARDIAL INFARCTION ABNORMAL ECG PREVIOUS TRACING 02/04/2016 Since prior tracing, T-wave inversions have resolved. Minimal ST e levations were seen on prior EKG as well. DOCTOR: Elijah Whitehead Interpretating Date/Time 10/22/2016 09:41:34
[2016-10-22] MEDS: METOPROLOL TARTRATE 25 MG TAB PO SCH ×2 (10:21→21:13)
[2016-10-22] MEDS: POLYETHYLENE GLYCOL 17 GM PKG PO SCH (10:21)
[2016-10-22] MEDS: SODIUM CHLORIDE 0.9% FLUSH 10 ML FLUSH IV FLUSH SCH ×2 (10:21→21:00)
[2016-10-22] MEDS: FAMOTIDINE 20 MG TAB PO SCH (10:22)
[2016-10-22] MEDS: CLOPIDOGREL 75 MG TAB PO SCH (10:22)
[2016-10-22] MEDS: ASPIRIN EC 81 MG TABEC PO SCH (10:22)
[2016-10-22] MEDS: PANTOPRAZOLE SOD 40 MG DELAYED RELEASE TAB PO SCH (10:22)
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
[2016-10-22] MEDS: ALPRAZolam 0.25 MG TAB PO PRN (15:31)
[2016-10-22] MEDS: amLODIPine BESYLATE 5 MG TAB PO SCH (15:32)
--- NOTE | 2016-10-22 17:51 | EKG ---
Date Performed: 10/22/2016 Time Performed: 05:51:05 PTAGE: 89 years EKG: SINUS BRADYCARDIA LEFT ANTERIOR FASCICULAR BLOCK PROBABLE SEPTAL MYOCARDIAL INFARCTION ABNO RMAL ECG PREVIOUS TRACING : 10/21/2016 23.49 Compared to prior tracing no significant change DOCTOR: Elijah Whitehead Interpretating Date/Time 10/22/2016 17:50:45
--- NOTE | 2016-10-22 17:58 | EKG ---
Date Performed: 10/21/2016 Time Performed: 23:49:20 PTAGE: 89 years EKG: Sinus rhythm MARKED LEFT AXIS DEVIATION POSSIBLE RIGHT VENTRICULAR CONDUCTION DELAY SEPTAL MYOCARDIAL INFARCTION Non-specific inferior T-wave changes ABNORMAL ECG PREVIOUS TRACING : 10/21/2016 16.28 Compared to prior tracing inferior T-wave changes are more prominent. DOCTOR: Elijah Whitehead Interpretating Date/Time 10/22/2016 17:57:36
[2016-10-22] MEDS ORDERED: RESP: ALBUTEROL 2.5 MG/IPRATROPIUM 0.5 MG NEB (PRN) NEB (20:00)
[2016-10-22] MEDS ORDERED: HALOPERIDOL LACTATE 5 MG/ML AMP IM ONE (20:00)
[2016-10-22] MEDS: RESP: ALBUTEROL 2.5 MG/IPRATROPIUM 0.5 MG NEB (SCH) NEB (20:57)
[2016-10-22] MEDS: ENOXAPARIN SODIUM 40 MG/0.4 ML SYRINGE SQ SCH (21:12)
[2016-10-22] MEDS: MIRTAZAPINE 15 MG TAB PO SCH (21:13)
[2016-10-22] MEDS: GABAPENTIN 300 MG CAP PO SCH (21:13)
[2016-10-22] MEDS: ATORVASTATIN 40 MG TAB PO SCH (21:13)
[2016-10-23] VITALS (7 sets, daily range): BP systolic 98–200; BP diastolic 55–110; PULSE 56–80; RESP 16–28; TEMP 97.5–98; O2SAT 95–97
[2016-10-23] MEDS ORDERED: cloNIDine HCL 0.1 MG TAB PO ONE (01:00)
[2016-10-23] MEDS: RESP: ALBUTEROL 2.5 MG/IPRATROPIUM 0.5 MG NEB (SCH) NEB ×4 (03:41→22:17)
[2016-10-23] MEDS: INSULIN ASPART SUPPLEMENTAL SCALE SQ SCH ×4 (07:00→21:00)
[2016-10-23] MEDS: ISOSORBIDE MONONITRATE 30 MG TAB PO SCH (07:00)
[2016-10-23] MEDS: CLOPIDOGREL 75 MG TAB PO SCH (09:00)
[2016-10-23] MEDS: SODIUM CHLORIDE 0.9% FLUSH 10 ML FLUSH IV FLUSH SCH ×2 (09:00→21:00)
[2016-10-23] MEDS: FAMOTIDINE 20 MG TAB PO SCH (09:00)
[2016-10-23] MEDS: ASPIRIN EC 81 MG TABEC PO SCH (09:00)
[2016-10-23] MEDS: LACTOBACILLUS ACIDOPHILUS TAB PO SCH ×3 (09:00→18:00)
[2016-10-23] MEDS: METOPROLOL TARTRATE 25 MG TAB PO SCH ×2 (09:00→20:59)
[2016-10-23] MEDS: PANTOPRAZOLE SOD 40 MG DELAYED RELEASE TAB PO SCH (09:00)
[2016-10-23] MEDS: POLYETHYLENE GLYCOL 17 GM PKG PO SCH (09:00)
--- NOTE | 2016-10-23 10:09 | HHI.PR ---
Subjective Remarks Per nursing staff patient did not sleep all might long and was confused. Patient this morning denies chest pain but states that his neck is slightly stiff. He is drowsy. Objective Vitals Vital Signs Date Time Temp Pulse Resp B/P (MAP) Pulse Ox O2 Delivery O2 Flow Rate FiO2 10/23/16 04:14 76 28 140/82 (101) 10/23/16 01:34 172/76 (108) 10/23/16 00:15 56 24 176/85 (115) 96 10/23/16 00:14 97.5 64 22 200/110 (140) 10/22/16 23:25 66 25 190/83 (118) 97 10/22/16 23:24 64 26 213/101 (138) 10/22/16 19:36 97.6 56 19 152/67 (95) 99 10/22/16 17:00 62 31 10/22/16 15:29 62 36 156/73 (100) 10/22/16 15:00 64 41 10/22/16 13:00 60 33 10/22/16 11:00 54 14 10/22/16 10:37 20 I/O 10/22/16 10/22/16 10/22/16 10/23/16 10/23/16 10/23/16 07:00 15:00 23:00 07:00 15:00 23:00 Intake Total 360 ml 500 ml Output Total 500 ml 200 ml 1250 ml Balance -140 ml -200 ml 500 ml -1250 ml Intake Oral 360 ml 500 ml Output Urine Total 500 ml 200 ml 1250 ml # Voids 1 # Bowel Movements 0 Result Diagram: 10/22/16 0533 10/22/16 0533 Objective Remarks GENERAL: Frail elderly male patient in no apparent distress. SKIN: Warm and dry. HEAD: Normocephalic. EYES: No scleral icterus. No injection or drainage. NECK: Supple, trachea midline. No JVD or lymphadenopathy. CARDIOVASCULAR: Regular rate and rhythm without murmurs, gallops, or rubs. RESPIRATORY: Breath sounds equal bilaterally. Mild end expiratory wheeze. No accessory muscle use. GASTROINTESTINAL: Abdomen soft, non-tender, nondistended. EXTREMITIES: No cyanosis, or edema. NEUROLOGICAL: Awake, drowsy, mildly confused. Non-focal. A/P Problem List: (1) Hyperlipidemia ICD Code: E78.5 - Hyperlipidemia, unspecified Status: Acute (2) Hypertension ICD Code: I10 - Essential (primary) hypertension Status: Acute (3) COPD (chronic obstructive pulmonary disease) ICD Code: J44.9 - Chronic obstructive pulmonary disease, unspecified Status: Acute (4) CAD (coronary artery disease) ICD Code: I25.10 - Atherosclerotic heart disease of [place] coronary artery without angina pectoris Status: Acute (5) Chest pain ICD Code: R07.9 - Chest pain, unspecified Status: Acute (6) COPD exacerbation ICD Code: J44.1 - Chronic obstructive pulmonary disease with (acute) exacerbation Status: Acute (7) Bronchitis ICD Code: J40 - Bronchitis, not specified as acute or chronic Status: Acute Assessment and Plan 89-year-old male admitted secondary to bronchitis with COPD exacerbation and chest pain. Slight improvement. Negative ACS workup thus far. Stress test not an option at this time. Chest pain Coronary artery disease CHF Negative serial cardiac enzymes and serial EKGs Possible stress test once available Aspirin daily When necessary oxygen When necessary morphine for pain. When necessary nitroglycerin Follow on telemetry Cardiology consult - however patient is a poor heart catheter candidate due to advanced age and confusion. I called his however no answer and her voicemail was not activated. 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 Continue Plavix Metabolic encephalopathy Dementia Related to infection possibly hypoxia Improved compared time of admit Not yet to baseline Monitor for further improvement Bronchitis COPD exacerbation Improving Continue oxygen supplements as needed Schedule duo nebs When necessary albuterol Levaquin Prednisone. Follow for improvement in respiratory status Follow for improvement in exertional tolerance Hyperlipidemia Continue statin Fasting lipid profile in a.m. Diabetes mellitus type 2 Follow blood sugars Insulin sliding scale Diabetic diet History constipation Follow clinically Laxatives if needed Gastroesophageal reflux disease Continue baseline treatment Follow clinically Hypertension Follow for any recurrence of hypertensive urgency Monitor blood pressures Continue baseline blood pressure treatments BPH Follow clinically DVT prophylaxis Lovenox SCDs Problem Qualifiers (1) Chest pain: Qualified Codes: R07.9 - Chest pain, unspecified Marcy Herman MD Oct 23, 2016 10:09
[2016-10-23] MEDS: predniSONE 20 MG TAB PO SCH ×2 (11:00→20:59)
[2016-10-23] MEDS: ALPRAZolam 0.25 MG TAB PO PRN (11:44)
[2016-10-23] MEDS: amLODIPine BESYLATE 5 MG TAB PO SCH (12:45)
[2016-10-23] MEDS: ENOXAPARIN SODIUM 40 MG/0.4 ML SYRINGE SQ SCH (20:59)
[2016-10-23] MEDS: GABAPENTIN 300 MG CAP PO SCH (20:59)
[2016-10-23] MEDS: ATORVASTATIN 40 MG TAB PO SCH (20:59)
[2016-10-23] MEDS: MIRTAZAPINE 15 MG TAB PO SCH (20:59)
[2016-10-24 00:12] VITALS: BP 86/50; PULSE 68; RESP 15; TEMP 97.6; O2SAT 94
[2016-10-24] MEDS: RESP: ALBUTEROL 2.5 MG/IPRATROPIUM 0.5 MG NEB (SCH) NEB ×4 (03:59→22:55)
[2016-10-24 04:12] VITALS: BP 91/59; PULSE 68; RESP 23; TEMP 97.2
[2016-10-24] MEDS: INSULIN ASPART SUPPLEMENTAL SCALE SQ SCH ×4 (07:00→21:00)
[2016-10-24] MEDS: POLYETHYLENE GLYCOL 17 GM PKG PO SCH (09:00)
[2016-10-24] MEDS: SODIUM CHLORIDE 0.9% FLUSH 10 ML FLUSH IV FLUSH SCH ×2 (09:00→21:47)
[2016-10-24] MEDS: PANTOPRAZOLE SOD 40 MG DELAYED RELEASE TAB PO SCH (11:00)
[2016-10-24] MEDS: FAMOTIDINE 20 MG TAB PO SCH (11:01)
[2016-10-24] MEDS: LACTOBACILLUS ACIDOPHILUS TAB PO SCH ×3 (11:01→17:00)
[2016-10-24] MEDS: predniSONE 20 MG TAB PO SCH ×2 (11:01→21:46)
[2016-10-24] MEDS: METOPROLOL TARTRATE 25 MG TAB PO SCH ×2 (11:01→21:47)
[2016-10-24] MEDS: CLOPIDOGREL 75 MG TAB PO SCH (11:01)
[2016-10-24] MEDS: ISOSORBIDE MONONITRATE 30 MG TAB PO SCH (11:01)
[2016-10-24] MEDS: ASPIRIN EC 81 MG TABEC PO SCH (11:01)
[2016-10-24 12:32] VITALS: BP 122/88; PULSE 55; RESP 16; TEMP 98.9
--- NOTE | 2016-10-24 14:11 | HHI.FF ---
Face to Face Verification Diagnosis: (1) Physical deconditioning Physical Therapy Order: Evaluate and Treat Home Health Nursing Order: Medical education Nursing assessment with vital signs I have seen patient Gino Saravia on 10/24/16. My clinical findings support the need for the requested home health care services because: Deconditioned w/ increased weakness Need for psychosocial assistance Impaired cognition/judgement I certify that my clinical findings support that this patient is homebound because: Need for psychosocial assistance Marcy Herman MD Oct 24, 2016 14:11
--- NOTE | 2016-10-24 14:12 | HHI.PR ---
Subjective Remarks Per nursing staff patient has been alert, calm, cooperative. No acute issues. Patient complains of mild pain in his right arm with IV site was. Patient denies chest pain. Objective Vitals Vital Signs Date Time Temp Pulse Resp B/P (MAP) Pulse Ox O2 Delivery O2 Flow Rate FiO2 10/24/16 12:32 98.9 55 16 122/88 (99) 10/24/16 04:12 97.2 68 23 91/59 (70) 10/24/16 00:12 97.6 68 15 86/50 (62) 94 10/23/16 20:12 97.6 70 25 98/55 (69) 97 10/23/16 19:28 10/23/16 14:30 98.0 70 16 140/60 (86) 95 I/O 10/23/16 10/23/16 10/23/16 10/24/16 10/24/16 10/24/16 07:00 15:00 23:00 07:00 15:00 23:00 Intake Total 250 ml Output Total 1250 ml 500 ml Balance -1250 ml -250 ml Intake Oral 250 ml Output Urine Total 1250 ml 500 ml # Voids 2 Result Diagram: 10/22/1633 10/22/16532 Objective Remarks GENERAL: Frail elderly male patient in no apparent distress. SKIN: Warm and dry. HEAD: Normocephalic. EYES: No scleral icterus. No injection or drainage. NECK: Supple, trachea midline. No JVD or lymphadenopathy. CARDIOVASCULAR: Regular rate and rhythm without murmurs, gallops, or rubs. RESPIRATORY: Breath sounds equal bilaterally. Mild end expiratory wheeze. No accessory muscle use. GASTROINTESTINAL: Abdomen soft, non-tender, nondistended. EXTREMITIES: No cyanosis, or edema. NEUROLOGICAL: Awake, alert, oriented to self not date. Common cooperative. A/P Problem List: (1) Hyperlipidemia ICD Code: E78.5 - Hyperlipidemia, unspecified Status: Acute (2) Hypertension ICD Code: I10 - Essential (primary) hypertension Status: Acute (3) COPD (chronic obstructive pulmonary disease) ICD Code: J44.9 - Chronic obstructive pulmonary disease, unspecified Status: Acute (4) CAD (coronary artery disease) ICD Code: I25.10 - Atherosclerotic heart disease of [place] coronary artery without angina pectoris Status: Acute (5) Chest pain ICD Code: R07.9 - Chest pain, unspecified Status: Acute (6) COPD exacerbation ICD Code: J44.1 - Chronic obstructive pulmonary disease with (acute) exacerbation Status: Acute (7) Bronchitis ICD Code: J40 - Bronchitis, not specified as acute or chronic Status: Acute Assessment and Plan 89-year-old male admitted secondary to bronchitis with COPD exacerbation and chest pain. Slight improvement. Negative ACS workup thus far. Stress test not an option at this time. Chest pain Coronary artery disease CHF Negative serial cardiac enzymes and serial EKGs Port catheter candidate secondary to thrombocytopenia, advanced age, confusion Aspirin daily When necessary oxygen When necessary morphine for pain. 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 Continue Plavix Metabolic encephalopathy Dementia Improved Improved compared time of admit Not yet to baseline Monitor for further improvement Bronchitis COPD exacerbation Improve no wheezing on exam. Hyperlipidemia Continue statin Fasting lipid profile in a.m. Diabetes mellitus type 2 Follow blood sugars Insulin sliding scale Diabetic diet History constipation Follow clinically Laxatives if needed Gastroesophageal reflux disease Continue baseline treatment Follow clinically Hypertension Follow for any recurrence of hypertensive urgency Monitor blood pressures Continue baseline blood pressure treatments BPH Follow clinically DVT prophylaxis Lovenox SCDs Discharge Planning Discharge home with home health care. Attempted to call , no answer. Problem Qualifiers (1) Chest pain: Qualified Codes: R07.9 - Chest pain, unspecified Marcy Herman MD Oct 24, 2016 14:12
[2016-10-24] MEDS ORDERED: WALKER WHEELS/F1 MIS (15:00)
[2016-10-24 16:00] VITALS: BP 147/79; PULSE 77; RESP 20; TEMP 97.8; O2SAT 96
[2016-10-24 20:00] VITALS: BP 135/74; PULSE 67; RESP 18; TEMP 95.4; O2SAT 97
[2016-10-24 20:30] VITALS: PULSE 70
[2016-10-24] MEDS: ATORVASTATIN 40 MG TAB PO SCH (21:46)
[2016-10-24] MEDS: MIRTAZAPINE 15 MG TAB PO SCH (21:46)
[2016-10-24] MEDS: ENOXAPARIN SODIUM 40 MG/0.4 ML SYRINGE SQ SCH (21:46)
[2016-10-24] MEDS: GABAPENTIN 300 MG CAP PO SCH (21:46)
[2016-10-25] VITALS: BP 182/93; PULSE 71; RESP 18; TEMP 95.3; O2SAT 92
[2016-10-25] MEDS: RESP: ALBUTEROL 2.5 MG/IPRATROPIUM 0.5 MG NEB (SCH) NEB ×3 (03:38→16:00)
[2016-10-25 04:00] VITALS: BP 152/78; PULSE 65; RESP 18; TEMP 98.4; O2SAT 98
[2016-10-25] MEDS: ISOSORBIDE MONONITRATE 30 MG TAB PO SCH (05:49)
[2016-10-25 08:00] VITALS: BP 182/94; PULSE 67; RESP 18; TEMP 97.7; O2SAT 95
[2016-10-25] MEDS: INSULIN ASPART SUPPLEMENTAL SCALE SQ SCH ×2 (08:00→12:00)
[2016-10-25] MEDS: predniSONE 20 MG TAB PO SCH (08:16)
[2016-10-25] MEDS: ASPIRIN EC 81 MG TABEC PO SCH (08:16)
[2016-10-25] MEDS: METOPROLOL TARTRATE 25 MG TAB PO SCH (08:16)
[2016-10-25] MEDS: ALPRAZolam 0.25 MG TAB PO PRN ×2 (08:16→13:50)
[2016-10-25] MEDS: FAMOTIDINE 20 MG TAB PO SCH (08:16)
[2016-10-25] MEDS: PANTOPRAZOLE SOD 40 MG DELAYED RELEASE TAB PO SCH (08:16)
[2016-10-25] MEDS: LACTOBACILLUS ACIDOPHILUS TAB PO SCH ×2 (08:17→12:37)
[2016-10-25] MEDS: CLOPIDOGREL 75 MG TAB PO SCH (08:17)
[2016-10-25] MEDS: POLYETHYLENE GLYCOL 17 GM PKG PO SCH (08:18)
[2016-10-25] MEDS: SODIUM CHLORIDE 0.9% FLUSH 10 ML FLUSH IV FLUSH SCH (09:00)
--- NOTE | 2016-10-25 14:06 | HHI.PR ---
Subjective Remarks Patient seen in follow-up for continued discharge planning. Still unable to contact as the number listed is out of service. No events overnight Objective Vitals Vital Signs Date Time Temp Pulse Resp B/P (MAP) Pulse Ox O2 Delivery O2 Flow Rate FiO2 10/25/16 08:00 97.7 67 18 182/94 (123) 95 10/25/16 04:00 98.4 65 18 152/78 (102) 98 10/25/16 00:00 95.3 71 18 182/93 (122) 92 10/24/16 20:30 70 10/24/16 20:00 95.4 67 18 135/74 (94) 97 10/24/16 16:00 97.8 77 20 147/79 (101) 96 I/O 10/24/16 10/24/16 10/24/16 10/25/16 10/25/16 10/25/16 07:00 15:00 23:00 07:00 15:00 23:00 Intake Total 200 ml 240 ml Balance 200 ml 240 ml Intake Oral 200 ml 240 ml # Voids 2 2 3 # Bowel Movements 0 0 Result Diagram: 10/22/16 0533 10/22/16 0533 Imaging Last Impressions Chest X-Ray 10/21/16 1637 Signed Impressions: Service Date/Time: Friday, October 21, 2016 16:53 - CONCLUSION: No acute cardiopulmonary disease identified. James Benedict MD Objective Remarks GENERAL: This is a well-nourished, well-developed patient, in no apparent distress. CARDIOVASCULAR: Regular rate and rhythm without murmurs, gallops, or rubs. RESPIRATORY: Clear to auscultation. Breath sounds equal bilaterally. No wheezes , rales, or rhonchi. GASTROINTESTINAL: Abdomen soft, non-tender, nondistended. Normal active bowel sounds MUSCULOSKELETAL: Extremities without clubbing, cyanosis, or edema. 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 Torres (3) Dementia ICD Code: F03.90 - Unspecified dementia without behavioral disturbance Plan: Continue medical treatment. Awaiting for family so patient can return home Discharge Planning Patient discharge, awaiting family to pick patient up Estrella Kumar MD Oct 25, 2016 14:05
[2016-10-26] MEDS ORDERED: predniSONE 20 MG TAB PO SCH (09:00)
== END 2016-10-25 16:47 | disposition home or self-care (01) ==
LOC: PHED 16:14 → PHEDA 18:23 → PHICU 20:15 → PH5A 10-24 12:48
PROVIDERS: ADMIT Hospitalist; ATTEND Hospitalist
DX: J44.1 Chronic obstructive pulmonary disease with (acute) exacerbation (principal); I25.10 Atherosclerotic heart disease of native coronary artery without angina pectoris; I16.0 Hypertensive urgency; F03.90 Unspecified dementia, unspecified severity, without behavioral disturbance, psychotic disturbance, mood disturbance, and anxiety; E78.5 Hyperlipidemia, unspecified; I10 Essential (primary) hypertension; E11.9 Type 2 diabetes mellitus without complications; R94.31 Abnormal electrocardiogram [ECG] [EKG]; K21.9 Gastro-esophageal reflux disease without esophagitis; N40.0 Benign prostatic hyperplasia without lower urinary tract symptoms; Z95.5 Presence of coronary angioplasty implant and graft; Z87.891 Personal history of nicotine dependence; Z79.01 Long term (current) use of anticoagulants; Z79.84 Long term (current) use of oral hypoglycemic drugs
CPT/HCPCS: 71010; 80053; 82550; 82552; 82948; 83690; 83735; 84484; 85025; 85610; 85730; 93005; 94640; 94664; 96372; 96374; 96375; 97110; 97116; 97162; 99285; G0378; G8987; G8988; J1630; J1650; J1815; J2270; J2930; J7512

== ENCOUNTER 2017-04-10 08:56 | Emergency (ER) | payer MEDICARE, OTHER ==
[~2017-04-10] VITALS: Ht 167.6 cm; Wt 47.2 kg
[~2017-04-10 08:56] MED LIST changes: +ASPI1TAB57 PO; -ATOR1TAB18 PO; +ATOR80TA45 PO; -Aspirin Chew PO; +IPRASOL INH; -LEVA500T PO; -PRED10 PO; -TAMS0.4C4 PO; +WALKER WHEELS/F1 MIS; -ZITHTAB PO
[2017-04-10 08:58] VITALS: BP 156/85; PULSE 66; RESP 18; TEMP 97.3; O2SAT 95
--- NOTE | 2017-04-10 09:17 | PD ---
HPI Chief Complaint: Abdominal Pain Time Seen by Provider: 09:04 Travel History International Travel<30 days: No Contact w/Intl Traveler<30days: No Traveled to known affect area: No History of Present Illness HPI 89-year-old male presents with abdominal pain and cramping that he has been experiencing over the past couple weeks. He went to his GI specialist Dr. Marion who did imaging and did not get results yet. They imaged from the throat down per his . They placed him on carafate without change in symptoms. Quality is cramping. Severity is moderate. He denies other associated symptoms other than intermittent cramps in his legs. Patient is a poor historian and history is mainly obtained from the . [facility] Past Medical History Narrative Medical by records Hx Anticoagulant Therapy: Yes Arthritis: No Asthma: No Autoimmune Disease: No Anxiety: No Depression: No Heart Rhythm Problems: Yes (UNKNOWN) Cancer: Yes ([place] OF SKIN REMOVED) Cardiac Catheterization: Yes Cardiovascular Problems: Yes (STENT) High Cholesterol: Yes Chemotherapy: No Chest Pain: No Congestive Heart Failure: Yes COPD: Yes Cerebrovascular Accident: No Coronary Artery Disease: Yes Diabetes: Yes Diminished Hearing: Yes ([place]) Endocrine: No Gastrointestinal Disorders: Yes (DIARRHEA, CONSTGIPATION) GERD: Yes Genitourinary: Yes (FREQUENCY, INCONTINENCE) Headaches: No Hepatitis: No Hiatal Hernia: No Hypertension: Yes Immune Disorder: No Implanted Vascular Access Dvce: Yes Kidney Stones: No Musculoskeletal: No Neurologic: Yes Psychiatric: No Reproductive: No Respiratory: Yes (COPD) Immunizations Current: Yes Migraines: No Radiation Therapy: No Renal Failure: No Seizures: No Sleep Apnea: No Thyroid Disease: No Ulcer: No Past Surgical History Narrative Surgical by records Abdominal Surgery: No AICD: No Arteriovenous Shunt: No Body Medical Devices: HEART STENTS Cardiac Surgery: Yes (STENTS) Coronary Stent: Yes Ear Surgery: No Endocrine Surgery: No Eye Surgery: Yes (RIGHT EYE CATARACT) Genitourinary Surgery: Yes Gynecologic Surgery: No Hysterectomy: No Insulin Pump: No Joint Replacement: No Neurologic Surgery: No Oral Surgery: Yes (T & A) Pacemaker: No Thoracic Surgery: No Other Surgery: Yes (HAD COLONOSCOPY WITH POLYPS REMOVED 04/18-BENIGN) Social History Alcohol Use: Yes (RARELY) Tobacco Use: No (QUIT 07/2008) Substance Use: No Allergies-Medications (Allergen,Severity, Reaction): Coded Allergies: No Known Allergies (Verified Adverse Reaction, Unknown, 04/10/17) Reported Meds & Prescriptions Reported Meds & Active Scripts Active Walker with Front Wheels (Device) 1 Mis Mis Ea .ROUTE DIRECTED Metoprolol Tartrate 25 Mg Tab 25 Mg PO BID Isosorbide Mononitrate ER (Isosorbide Mononitrate) 30 Mg Phani 90 Mg PO DAILY@07 Norvasc (Amlodipine Besylate) 5 Mg Tab 2.5 Mg PO DAILY@1400 Reported Carafate (Sucralfate) 1 Gram Tab 1 Gm PO QID On empty stomach Duoneb (Ipratropium-Albuterol Neb) 0.5-2.5 Mg/3 Ml Neb 1 Nebule INH BID Aspirin 81 (Aspirin) 81 Mg Tabdr 81 Mg PO DAILY Nexium (Esomeprazole DR) 40 Mg Capdr 40 Mg PO DAILY Mirtazapine 7.5 Mg Tab 15 Mg PO HS Ranitidine (Ranitidine HCl) 150 Mg Tab 150 Mg PO DAILY Polyethylene Glycol 3350 Powder (Polyethylene Glycol) 17 Gm Pow 17 Gm PO DAILY Plavix (Clopidogrel Bisulfate) 75 Mg Tab 75 Mg PO DAILY Nitroglycerin SL (Nitroglycerin) 0.4 Mg Subl 0.4 Mg SL DIRECTED PRN ONE TABLET UNDER THE TONGUE NEEDED FOR CHEST PAIN, MAY REPEAT EVERY FIVE MINUTES FOR A TOTAL OF 3 DOSES OR CALL 911 IF NO RELIEF Gabapentin 300 Mg Cap 300 Mg PO HS Atorvastatin (Atorvastatin Calcium) 80 Mg Tab 80 Mg PO HS Review of Systems ROS Limitations: Poor Historian Except as stated in HPI: all other systems reviewed are Neg Physical Exam Exam Limitations: Poor Historian Narrative GENERAL: 89 y/o male in no apparent distress SKIN: Focused skin assessment warm/dry. HEAD: Atraumatic. Normocephalic. EYES: Pupils equal and round. No scleral icterus. No injection or drainage. ENT: No nasal bleeding or discharge. Mucous membranes pink and moist. NECK: Trachea midline. No JVD. CARDIOVASCULAR: Regular rate and rhythm. RESPIRATORY: No accessory muscle use. Clear to auscultation. Breath sounds equal bilaterally. GASTROINTESTINAL: Abdomen soft,diffusely tender, nondistended. NEUROLOGICAL: Awake. moves all extremities, clear speech Data Data Last Documented VS Vital Signs Date Time Temp Pulse Resp B/P (MAP) Pulse Ox O2 Delivery O2 Flow Rate FiO2 04/10/17 13:22 60 17 142/64 (90) 97 04/10/17 12:06 Room Air 04/10/17 08:58 97.3 Orders Orders Complete Blood Count With Diff (04/10/17 09:05) Comprehensive Metabolic Panel (04/10/17 09:05) Urinalysis - C+S If Indicated (04/10/17 09:05) Lipase (04/10/17 09:05) Iv Access Insert/Monitor (04/10/17 09:05) Cta Abd/Pel W Iv Contrast W 3d (04/10/17 ) Lactic Acid (04/10/17 09:18) Sodium Chlorid 0.9% 500 Ml Inj (Ns 500 M (04/10/17 09:30) Iohexol 350 Inj (Omnipaque 350 Inj) (04/10/17 10:28) Ed Discharge Order (04/10/17 13:22) Labs Laboratory Tests Test 04/10/17 09:30 04/10/17 11:05 White Blood Count 5.8 TH/MM3 Red Blood Count 4.61 MIL/MM3 Hemoglobin 13.7 GM/DL Hematocrit 41.3 % Mean Corpuscular Volume 89.4 FL Mean Corpuscular Hemoglobin 29.6 PG Mean Corpuscular Hemoglobin Concent 33.1 % Red Cell Distribution Width 13.8 % Platelet Count 117 TH/MM3 Mean Platelet Volume 11.6 FL Neutrophils (%) (Auto) 66.9 % Lymphocytes (%) (Auto) 23.8 % Monocytes (%) (Auto) 6.7 % Eosinophils (%) (Auto) 1.0 % Basophils (%) (Auto) 1.6 % Neutrophils # (Auto) 3.8 TH/MM3 Lymphocytes # (Auto) 1.4 TH/MM3 Monocytes # (Auto) 0.4 TH/MM3 Eosinophils # (Auto) 0.1 TH/MM3 Basophils # (Auto) 0.1 TH/MM3 CBC Comment DIFF FINAL Differential Comment Blood Urea Nitrogen 15 MG/DL Creatinine 0.76 MG/DL Random Glucose 88 MG/DL Total Protein 6.7 GM/DL Albumin 3.5 GM/DL Calcium Level 8.7 MG/DL Alkaline Phosphatase 70 U/L Aspartate Amino Transf (AST/SGOT) 35 U/L Alanine Aminotransferase (ALT/SGPT) 33 U/L Total Bilirubin 0.9 MG/DL Sodium Level 144 MEQ/L Potassium Level 4.7 MEQ/L Chloride Level 110 MEQ/L Carbon Dioxide Level 26.7 MEQ/L Anion Gap 7 MEQ/L Estimat Glomerular Filtration Rate 97 ML/MIN Lactic Acid Level 1.0 mmol/L Lipase 193 U/L Urine Collection Type CLEAN CATCH Urine Color STRAW Urine Turbidity CLEAR Urine pH 5.0 Urine Specific [place] 1.030 Urine Protein NEG mg/dL Urine Glucose (UA) NEG mg/dL Urine Ketones NEG mg/dL Urine Occult Blood NEG Urine Nitrite NEG Urine Bilirubin NEG Urine Leukocyte Esterase NEG Urine WBC 0-2 /hpf Urine Squamous Epithelial Cells 0-2 /hpf Microscopic Urinalysis Comment CULT NOT INDICATED MDM Medical Decision Making Medical Screen Exam Complete: Yes Emergency Medical Condition: Yes Medical Record Reviewed: Yes (pmh confirmed) Interpretation(s) CBC & BMP Diagram 04/10/17 09:30 Total Protein 6.7, Albumin 3.5, Calcium Level 8.7, Alkaline Phosphatase 70, Aspartate Amino Transf (AST/SGOT) 35, Alanine Aminotransferase (ALT/SGPT) 33, Total Bilirubin 0.9 CTA abdomen pelvis shows no signs of mesenteric ischemia, discussed with radiologist and no other emergent findings within CT abdomen and pelvis Differential Diagnosis Stone, electrolyte abnormality, gastritis, pancreatitis, UTI..... Narrative Course will check labs, ua, ct abdomen pelvis and reevaluate ED workup without emergent process. Patient denies any new complaints and states that they are feeling better. all questions answered. Patient knows that follow up is incumbent on them and to return to the emergency room immediately if new or worsening symptoms develop. Patient given strict return precautions, vitals reviewed and are normal, agrees to further workup as an outpatient and feels comfortable setting this up. at bedside Diagnosis Primary Impression: Abdominal pain Qualified Codes: R10.84 - Generalized abdominal pain Patient Instructions: General Instructions Additional Instructions: follow with primary and dr marion this week for recheck, return as needed, tylenol as needed Med/Other Pt SpecificInfo: No Change to Meds Disposition: 01 DISCHARGE HOME Condition: Stable Shayna Padilla MD Apr 10, 2017 09:17
[2017-04-10] MEDS ORDERED: SODIUM CHLORID 0.9% 500 ML INJ 500 ML IV ONE (09:30)
[2017-04-10 09:40] LABS: AUTOMATED NEUTROPHIL # 3.8 TH/MM3 (1.8-7.7); BASOPHIL # 0.1 TH/MM3 (0-0.2); BASOPHIL % 1.6 % (0.0-2.0); EOSINOPHIL # 0.1 TH/MM3 (0-0.4); HEMATOCRIT 41.3 % (39.0-51.0); HEMOGLOBIN 13.7 GM/DL (13.0-17.0); LYMPH % 23.8 % (9.0-44.0); LYMPHOCYTE # 1.4 TH/MM3 (1.0-4.8); MEAN CELL VOLUME 89.4 FL (80.0-100.0); MEAN CORPUSCULAR HEMOGLOBIN 29.6 PG (27.0-34.0); MEAN CORPUSCULAR HGB CONC 33.1 % (32.0-36.0); MEAN PLATELET VOLUME 11.6 FL (7.0-11.0); MONO % 6.7 % (0.0-8.0); MONOCYTE # 0.4 TH/MM3 (0-0.9); NEUT % 66.9 % (16.0-70.0); PLATELET COUNT 117 TH/MM3 (150-450); RED BLOOD COUNT 4.61 MIL/MM3 (4.50-5.90); RED CELL DISTRIBUTION WIDTH 13.8 % (11.6-17.2); WHITE BLOOD COUNT 5.8 TH/MM3 (4.0-11.0)
[2017-04-10] MEDS ORDERED: IPRASOL INH (09:51)
[2017-04-10] MEDS ORDERED: CARA1TAB6 PO (09:51)
[2017-04-10 09:52] LABS: CALCIUM 8.7 MG/DL (8.5-10.1)
[2017-04-10 09:53] LABS: ALBUMIN 3.5 GM/DL (3.4-5.0); BICARBONATE 26.7 MEQ/L (21.0-32.0); GLUCOSE,RANDOM 88 MG/DL (74-106)
[2017-04-10 09:56] LABS: ALT (GPT) 33 U/L (12-78); CHLORIDE 110 MEQ/L (98-107); CREATININE 0.76 MG/DL (0.60-1.30); GLOMERULAR FILTRATION RATE 97 ML/MIN (>89); SODIUM (NA) 144 MEQ/L (136-145)
[2017-04-10 09:58] LABS: ALKALINE PHOSPHATASE 70 U/L (45-117); TOTAL PROTEIN 6.7 GM/DL (6.4-8.2)
[2017-04-10 10:00] LABS: AST (GOT) 35 U/L (15-37)
[2017-04-10 10:01] LABS: BLOOD UREA NITROGEN 15 MG/DL (7-18)
[2017-04-10 10:08] LABS: TOTAL BILIRUBIN ADULT 0.9 MG/DL (0.2-1.0)
[2017-04-10] MEDS ORDERED: IOHEXOL 350 MG/ML 10 ML VIAL (for RAD DIAG) IVCONTRAST ONE (10:28)
[2017-04-10 11:14] LABS: BILIRUBIN, URINE NEG (NEG); BLOOD, URINE NEG (NEG); GLUCOSE,URINE NEG (NEG); KETONE, URINE NEG (NEG); NITRITE,URINE NEG (NEG); URINE LEUKOCYTE ESTERASE NEG (NEG)
[2017-04-10 11:44] LABS: URINE COLOR STRAW (YELLW/STRAW)
[2017-04-10 11:45] LABS: SQUAMOUS EPITHELIAL CELL URINE 0-2 /hpf (0-5); WBC, URINE 0-2 /hpf (0-5)
[2017-04-10 12:06] VITALS: BP 128/62; PULSE 61; RESP 16; O2SAT 99
--- NOTE | 2017-04-10 12:51 | RADRPT ---
EXAM DATE/TIME: 04/10/2017 10:14 [facility] COMPARISON: No previous studies available for comparison. INDICATIONS : Mid abdominal pain. Evaluate for mesenteric ischemia. IV CONTRAST: 85 cc Omnipaque 350 (iohexol) IV ORAL CONTRAST: No oral contrast ingested. RADIATION DOSE: 18.38 CTDIvol (mGy) MEDICAL HISTORY : Cardiovascular disease. Hypertension. Gastroesophageal reflux disease.Diabetes. SURGICAL HISTORY : Coronary artery stent. Right femoral stent. ENCOUNTER: Initial ACUITY: 1 day PAIN SCALE: 6/10 LOCATION: pelvis abdomen TECHNIQUE: Volumetric scanning was performed using a multi-row detector CT scanner. The data was post processed with a variety of visualization algorithms including full volume maximum intensity projection, multi -planar sliding thin slab reformation, curved planar reformation, and surface rendering techniques. Using automated exposure control and adjustment of the mA and/or kV according to patient size, radiat ion dose was kept as low as reasonably achievable to obtain optimal diagnostic quality images. DICOM format image data is available electronically for review and comparison. FINDINGS: ABDOMINAL AORTA: Advanced atherosclerotic vascular disease is present throughout the abdominal aorta. There is fairly extensive calcified and noncalcified plaque. Moderate aortic stenosis is identified in the proximal i nfrarenal segment. Degree of narrowing is approximately 50%. There is no significant aneurysmal enlar gement. Endovascular stent is identified in the celiac artery. The celiac artery remains patent. The sup erior mesenteric artery is widely patent. Single renal arteries are identified each kidney. There is calcified plaque at the origin of both renal arteries without significant stenosis. BIFURCATION: Normal. RIGHT PELVIS: Calcified plaque is present throughout the right iliac vessels. There is no evidence of significant s tenosis. LEFT PELVIS: Calcified plaque is present throughout the left iliac vessels. There is no evidence of significant st enoses. There is no evidence of significant bowel wall thickening or edema to suggest mesenteric ischemic gian nges. CONCLUSION: 1. 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 2. No evidence of significant mesenteric stenosis or findings characteristic of mesenteric ischemia. Balbir Crespo MD on April 10, 2017 at 12:42 Board Certified Radiologist. This report was verified electronically.
[2017-04-10 13:22] VITALS: BP 142/64
== END 2017-04-10 13:34 | disposition home or self-care (01) ==
LOC: PHED 08:56
DX: R10.84 Generalized abdominal pain (principal); J44.9 Chronic obstructive pulmonary disease, unspecified; I25.10 Atherosclerotic heart disease of native coronary artery without angina pectoris; I11.9 Hypertensive heart disease without heart failure; Z87.891 Personal history of nicotine dependence; Z95.5 Presence of coronary angioplasty implant and graft; Z79.01 Long term (current) use of anticoagulants; Z79.82 Long term (current) use of aspirin
CPT/HCPCS: 74174; 80053; 81001; 83605; 83690; 85025; 96360; 99284; J7040; Q9967

== ENCOUNTER 2017-04-22 17:37 | Inpatient (IN) | payer MEDICARE, OTHER ==
[2017-04-22] VITALS (11 sets, daily range): BP systolic 78–250; BP diastolic 58–110; PULSE 81–128; RESP 18–45; TEMP 99.5–99.6; O2SAT 88–100
[~2017-04-22] VITALS: Ht 167.6 cm; Wt 52.0 kg
[~2017-04-22 17:37] MED LIST changes: +CARA1TAB6 PO; -IPRAAER INH; -MIRA25TA PO
[2017-04-22] MEDS ORDERED: IOHEXOL 350 MG/ML 10 ML VIAL (for RAD DIAG) IVCONTRAST ONE (17:38)
[2017-04-22] MEDS ORDERED: FINA5TAB2 PO (18:38)
[2017-04-22] MEDS ORDERED: SODIUM CHLORIDE 0.9% FLUSH 10 ML FLUSH IVF PRN (18:45)
[2017-04-22] MEDS ORDERED: SODIUM CHLORIDE 0.9% FLUSH 10 ML FLUSH IV FLUSH PRN ×2 (18:45→23:00)
[2017-04-22] MEDS ORDERED: methylPREDNISolone SOD SUCC 125 MG/2 ML VIAL IV PUSH ONE (18:45)
[2017-04-22] MEDS: RESP: ALBUTEROL 2.5 MG/IPRATROPIUM 0.5 MG NEB (SCH) INH (18:51)
--- NOTE | 2017-04-22 19:07 | RADRPT ---
EXAM DATE/TIME: 04/22/2017 18:49 [facility] COMPARISON: CHEST SINGLE AP, October 21, 2016, 16:53. INDICATIONS : Cough MEDICAL HISTORY : Cardiovascular disease. Hypertension. Gastroesophageal reflux disease.Diabetes. SURGICAL HISTORY : Coronary artery stent. Right femoral stent. ENCOUNTER: Initial ACUITY: 1 day PAIN SCORE: 0/10 LOCATION: chest FINDINGS: A single view of the chest demonstrates the lungs to be symmetrically aerated without evidence of mas s, infiltrate or effusion. The cardiomediastinal contours are unremarkable. Osseous structures are intact. CONCLUSION: The lungs are clear. Tha Martin MD on April 22, 2017 at 19:04 Board Certified Radiologist. This report was verified electronically.
--- NOTE | 2017-04-22 19:08 | PD ---
Physical Exam Narrative General: The patient is a well-developed, thin appearing male, short of breath on my arrival to the room with conversational dyspnea Head and Neck exam: Head is normocephalic atraumatic. Eyes: EOMI, pupils are equal round and reactive to light. Nose: Midline septum with pink mucous membranes Mouth: Dentition unremarkable. Moist mucus membranes. Posterior oropharynx is not erythematous. No tonsillar hypertrophy. Uvula midline. Airway patent. Neck: No palpable lymphadenopathy. No nuchal rigidity. No thyromegaly. Cardiovascular: Tachycardic with a rate in the 130 without murmurs, gallops, or rubs. Lungs: Scattered rhonchi throughout bilateral lung hayes, soft anterior expiratory wheezes audible. Decreased breath sounds in bilateral bases. No crackles audible Abdomen: Soft, with reported tenderness on palpation of all 4 quadrants of the abdomen worse in the left upper and left lower quadrant on exam. No guarding, rebound, or rigidity. Normal bowel sounds are audible. No point tenderness specifically on palpation of her McBurney's point. Negative Carrera sign. Extremities: No clubbing, cyanosis, or edema. 2+ pulses in all 4 extremities. No calf tenderness on palpation of the Back: No costovertebral angle tenderness to palpation. Neurologic Exam: Grossly nonfocal. Generalized weakness is noted. Frequent productive cough is noted Skin Exam: No rash noted. Intact skin that is warm and dry. Data Data Last Documented VS Vital Signs Date Time Temp Pulse Resp B/P (MAP) Pulse Ox O2 Delivery O2 Flow Rate FiO2 04/22/17 22:46 87 20 92/58 (69) 100 BiPAP 04/22/17 19:55 35 04/22/17 19:37 99.5 3.00 Orders Orders Complete Blood Count With Diff (04/22/17 18:36) Comprehensive Metabolic Panel (04/22/17 18:36) Prothrombin Time / Inr (Pt) (04/22/17 18:36) Act Partial Throm Time (Ptt) (04/22/17 18:36) Urinalysis - C+S If Indicated (04/22/17 18:36) Ct Abd/Pel W Iv Contrast(Rout) (04/22/17 18:36) Iv Access Insert/Monitor (04/22/17 18:36) Ecg Monitoring (04/22/17 18:36) Oximetry (04/22/17 18:36) Sodium Chloride 0.9% Flush (Ns Flush) (04/22/17 18:45) Electrocardiogram (04/22/17 18:36) Chest, Single Ap (04/22/17 ) B-Type Natriuretic Peptide (04/22/17 18:36) Sodium Chloride 0.9% Flush (Ns Flush) (04/22/17 18:45) Methylprednisolone So Succ Inj (Solumedr (04/22/17 18:45) Albuterol-Ipratropium Neb (Duoneb Neb) (04/22/17 18:45) Troponin I (04/22/17 18:36) Ckmb (Isoenzyme) Profile (04/22/17 18:36) Lactic Acid Sepsis Protocol (04/22/17 18:59) Sodium Chlorid 0.9% 500 Ml Inj (Ns 500 M (04/22/17 19:30) Blood Culture (04/22/17 19:59) Sodium Chlorid 0.9% 500 Ml Inj (Ns 500 M (04/22/17 20:00) Ct Thorax/ Chest W Iv Contrast (04/22/17 ) Iohexol 350 Inj (Omnipaque 350 Inj) (04/22/17 17:38) Ceftriaxone Inj (Rocephin Inj) (04/22/17 21:57) Azithromycin Inj (Zithromax Inj) (04/22/17 21:57) Admit Order (Ed Use Only) (04/22/17 22:51) Labs Laboratory Tests Test 04/22/17 18:45 04/22/17 19:15 04/22/17 19:25 04/22/17 22:15 White Blood Count 20.1 TH/MM3 Red Blood Count 4.43 MIL/MM3 Hemoglobin 13.4 GM/DL Hematocrit 40.6 % Mean Corpuscular Volume 91.6 FL Mean Corpuscular Hemoglobin 30.3 PG Mean Corpuscular Hemoglobin Concent 33.1 % Red Cell Distribution Width 14.5 % Platelet Count 146 TH/MM3 Mean Platelet Volume 10.7 FL Neutrophils (%) (Auto) 74.1 % Lymphocytes (%) (Auto) 21.0 % Monocytes (%) (Auto) 4.3 % Eosinophils (%) (Auto) 0.4 % Basophils (%) (Auto) 0.2 % Neutrophils # (Auto) 15.0 TH/MM3 Lymphocytes # (Auto) 4.2 TH/MM3 Monocytes # (Auto) 0.9 TH/MM3 Eosinophils # (Auto) 0.1 TH/MM3 Basophils # (Auto) 0.0 TH/MM3 CBC Comment DIFF FINAL Differential Comment Prothrombin Time 10.6 SEC Prothromb Time International Ratio 1.0 RATIO Activated Partial Thromboplast Time 22.5 SEC Blood Urea Nitrogen 15 MG/DL Creatinine 0.88 MG/DL Random Glucose 253 MG/DL Total Protein 6.6 GM/DL Albumin 3.4 GM/DL Calcium Level 8.4 MG/DL Alkaline Phosphatase 76 U/L Aspartate Amino Transf (AST/SGOT) 34 U/L Alanine Aminotransferase (ALT/SGPT) 33 U/L Total Bilirubin 0.5 MG/DL Sodium Level 139 MEQ/L Potassium Level 4.3 MEQ/L Chloride Level 102 MEQ/L Carbon Dioxide Level 28.6 MEQ/L Anion Gap 8 MEQ/L Estimat Glomerular Filtration Rate 82 ML/MIN Total Creatine Kinase 86 U/L Troponin I 0.13 NG/ML B-Type Natriuretic Peptide 192 PG/ML Lactic Acid Level 3.9 mmol/L 2.7 mmol/L Urine Color LIGHT-YELLOW Urine Turbidity CLEAR Urine pH 7.0 Urine Specific [place] 1.012 Urine Protein 30 mg/dL Urine Glucose (UA) NEG mg/dL Urine Ketones NEG mg/dL Urine Occult Blood NEG Urine Nitrite NEG Urine Bilirubin NEG Urine Urobilinogen LESS THAN 2.0 MG/DL Urine Leukocyte Esterase NEG Urine RBC 3 /hpf Urine WBC 1 /hpf Urine Squamous Epithelial Cells <1 /hpf Microscopic Urinalysis Comment CULT NOT INDICATED [facility] Medical Record Reviewed: Yes Supervised Visit with BRIAN: Yes Interpretation(s) Last Impressions Abdomen/Pelvis CT 04/22/17 1836 Signed Impressions: Service Date/Time: Saturday, April 22, 2017 21:26 - CONCLUSION: 1. Partial consolidative infiltrate in the posterior right lower lung, a new finding from 04/10/17. 2. Mild constipation without dilated loops of small bowel. 3. 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 Tha Martin MD Chest X-Ray 04/22/17 0000 Signed Impressions: Service Date/Time: Saturday, April 22, 2017 18:49 - CONCLUSION: The lungs are clear. Tha Martin MD Chest CT 04/22/17 0000 Signed Impressions: Service Date/Time: Saturday, April 22, 2017 21:26 - CONCLUSION: 1. Unusual pattern of partially consolidative infiltrate in the posterior right lung with sharp linear demarcation between normal and abnormal lung which does not conform to a segmental anatomy. 2. Tiny bilateral pleural effusions. Tha Martin MD Narrative Course I, Dr. Ohara, have reviewed the advance practice practitioner's documentation and am in agreement, met with the patient face to face, made the diagnosis, and the medical decision making was done by me. The patient was initially evaluated by Tammy. Please see their complete history and physical. *My assessment and Findings: The patient presents with reported abdominal pain, however on my arrival to the room the patient is noted to be tachypneic with conversational dyspnea heart rate in the 130s. According to the record, the patient has a history of atrial fibrillation. An EKG will be done to assess for A. fib with RVR given patient's tachycardia. During the course of the patient's emergency department visit, the patient's history, examination, and differential diagnosis were reviewed with the patient. The patient was placed on a monitoring manager with oximetry and frequent blood pressure monitoring. The patient had IV access obtained and blood work sent for analysis. The patient was noted to be in a sinus tachycardia on EKG. The patient was initially provided Solu-Medrol 60 mg IV, DuoNeb's 2 will be administered. The patient was given a normal saline 500 mL bolus 1 The patient's laboratory studies were reviewed and remarkable for white count of 20.1. Hemoglobin 13.4, platelets 146 with 74.1 neutrophils, CMP is remarkable for a GFR of 82, glucose 253, calcium 8.4, CPK 86, troponin I is elevated at 0.13, BNP 192. Lactic acid 3.9, PT 10.6, PTT 22.5, urinalysis shows 30 protein per Radiology studies were reviewed and remarkable for a chest x-ray that shows no acute abnormality. CT scan of the chest reveals an unusual pattern a partially consolidated infiltrate in the posterior right lung with sharp linear demarcation between normal and abnormal lung which does not conform to a segmental anatomy, tiny bilateral pleural effusions. CT scan of the abdomen and pelvis shows mild constipation without dilated loops of small bowel, diffuse atherosclerotic disease without evidence of major vessel occlusion. Blood cultures 2 were drawn and the patient and the patient was covered with broad-spectrum antibiotic for pneumonia. The patient's results were discussed with the patient, including the plan of care. I explained that further testing and/ or monitoring is indicated based on the patient's history, examination, and/ or laboratory findings. Therefore, I recommended admission for additional evaluation. The patient expressed understanding and was agreeable with this plan. The patient was admitted to the hospital in guarded condition and sent to a bed under the care of the complaint operator service. Sepsis Criteria SIRS Criteria (2 or more): Heart rate over 90, RR > 20 or PaCO2 < 32, WBC > 70223, < 4000 or > 10% bands Sepsis Criteria (SIRS+source): Infect source susp/known Severe Sepsis (+one): Lactate >2 Diagnosis Primary Impression: Pneumonia Qualified Codes: J18.9 - Pneumonia, unspecified organism Additional Impressions: Abdominal pain Qualified Codes: R10.30 - Lower abdominal pain, unspecified Respiratory distress Admitting Information Admitting Physician Requests: Admit Sonia Ohara MD Apr 22, 2017 19:08
[2017-04-22 19:25] LABS: BASOPHIL % 0.2 % (0.0-2.0); EOSINOPHIL # 0.1 TH/MM3 (0-0.4); EOSINOPHIL % 0.4 % (0.0-4.0); HEMATOCRIT 40.6 % (39.0-51.0); HEMOGLOBIN 13.4 GM/DL (13.0-17.0); LYMPHOCYTE # 4.2 TH/MM3 (1.0-4.8); MEAN CELL VOLUME 91.6 FL (80.0-100.0); MEAN CORPUSCULAR HEMOGLOBIN 30.3 PG (27.0-34.0); MEAN CORPUSCULAR HGB CONC 33.1 % (32.0-36.0); MEAN PLATELET VOLUME 10.7 FL (7.0-11.0); MONO % 4.3 % (0.0-8.0); MONOCYTE # 0.9 TH/MM3 (0-0.9); NEUT % 74.1 % (16.0-70.0); PLATELET COUNT 146 TH/MM3 (150-450); RED BLOOD COUNT 4.43 MIL/MM3 (4.50-5.90); RED CELL DISTRIBUTION WIDTH 14.5 % (11.6-17.2); WHITE BLOOD COUNT 20.1 TH/MM3 (4.0-11.0)
[2017-04-22] MEDS ORDERED: SODIUM CHLORID 0.9% 500 ML INJ 500 ML IV ONE ×2 (19:30→20:00)
[2017-04-22 19:31] LABS: PROTHROMBIN TIME - PATIENT 10.6 SEC (9.8-11.6)
[2017-04-22 19:46] LABS: ALBUMIN 3.4 GM/DL (3.4-5.0); ALKALINE PHOSPHATASE 76 U/L (45-117); ALT (GPT) 33 U/L (12-78); AST (GOT) 34 U/L (15-37); BICARBONATE 28.6 MEQ/L (21.0-32.0); BLOOD UREA NITROGEN 15 MG/DL (7-18); CALCIUM 8.4 MG/DL (8.5-10.1); CHLORIDE 102 MEQ/L (98-107); CREATININE 0.88 MG/DL (0.60-1.30); GLOMERULAR FILTRATION RATE 82 ML/MIN (>89); GLUCOSE,RANDOM 253 MG/DL (74-106); SODIUM (NA) 139 MEQ/L (136-145); TOTAL BILIRUBIN ADULT 0.5 MG/DL (0.2-1.0); TOTAL PROTEIN 6.6 GM/DL (6.4-8.2); TROPONIN I 0.13 NG/ML (0.02-0.05)
[2017-04-22 19:48] LABS: BILIRUBIN, URINE NEG (NEG); BLOOD, URINE NEG (NEG); GLUCOSE,URINE NEG (NEG); KETONE, URINE NEG (NEG); NITRITE,URINE NEG (NEG); SQUAMOUS EPITHELIAL CELL URINE <1 /hpf (0-5); URINE COLOR LIGHT-YELLOW (YELLW/STRAW); URINE LEUKOCYTE ESTERASE NEG (NEG)
[2017-04-22 19:57] LABS: LACTIC ACID SEPSIS PROTOCOL 3.9 mmol/L (0.4-2.0)
[2017-04-22] MEDS ORDERED: cefTRIAXone INJ 2,000 MG in SODIUM CHLORIDE 0.9% INJ 100 ML IV STA (21:57)
--- NOTE | 2017-04-22 22:02 | RADRPT ---
EXAM DATE/TIME: 04/22/2017 21:26 [facility] COMPARISON: CTA ABDOMEN & PELVIS W 3D RECON, April 10, 2017, 10:14. CT ABDOMEN & PELVIS W CONTRAST, February 01, 2016, 19:13. INDICATIONS : Left lower quadrant pain. IV CONTRAST: 95 cc Omnipaque 350 (iohexol) IV ; Cumulative dose for multiple exams. ORAL CONTRAST: No oral contrast ingested. RADIATION DOSE: 4.85 CTDIvol (mGy) ; Combined studies - Thorax/Abdomen/Pelvis MEDICAL HISTORY : Chronic obstructive pulmonary disease. Congestive heart failure. Gastroesophageal reflux disease.Hype rtension. Diabetes. SURGICAL HISTORY : Coronary artery stent. ENCOUNTER: Initial ACUITY: 1 day PAIN SCALE: 7/10 LOCATION: Left lower quadrant TECHNIQUE: Volumetric scanning of the abdomen and pelvis was performed. Using automated exposure control and ad justment of the mA and/or kV according to patient size, radiation dose was kept as low as reasonably achievable to obtain optimal diagnostic quality images. DICOM format image data is available electro nically for review and comparison. FINDINGS: LOWER LUNGS: Partial consolidative opacity in the posterior right lower lung is a new finding from prior CTA . LIVER: Homogeneous density without lesion. There is no dilation of the biliary tree. No calcified gallston es. SPLEEN: Normal size without lesion. PANCREAS: Within normal limits. KIDNEYS: Normal in size and shape. There is no mass, stone or hydronephrosis. ADRENAL GLANDS: Within normal limits. VASCULAR: Atherosclerotic calcification and celiac stent, recently evaluated with CTA. The lumen of the aorta remains patent. BOWEL/MESENTERY: No dilated loops of small or large bowel. Moderate amount of stool in the right colon. ABDOMINAL WALL: Within normal limits. RETROPERITONEUM: There is no lymphadenopathy. BLADDER: No wall thickening or mass. REPRODUCTIVE: Within normal limits. INGUINAL: There is no lymphadenopathy or hernia. MUSCULOSKELETAL: Within normal limits for patient age. CONCLUSION: 1. Partial consolidative infiltrate in the posterior right lower lung, a new finding from 04/10/17. 2. Mild constipation without dilated loops of small bowel. 3. 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 Tha Martin MD on April 22, 2017 at 21:54 Board Certified Radiologist. This report was verified electronically.
--- NOTE | 2017-04-22 22:06 | RADRPT ---
EXAM DATE/TIME: 04/22/2017 21:26 [facility] COMPARISON: No previous studies available for comparison. INDICATIONS : Hemoptysis. IV CONTRAST: 95 cc Omnipaque 350 (iohexol) IV ; Cumulative dose for multiple exams. RADIATION DOSE: 4.85 CTDIvol (mGy) ; Combined studies - Thorax/Abdomen/Pelvis MEDICAL HISTORY : Cardiovascular disease. Hypertension. Gastroesophageal reflux disease.Diabetes Skin cancer COPD SURGICAL HISTORY : Carotid stent. ENCOUNTER: Initial ACUITY: 1 day PAIN SCALE: 0/10 LOCATION: chest TECHNIQUE: Volumetric scanning of the chest was performed. Using automated exposure control and adjustment of t he mA and/or kV according to patient size, radiation dose was kept as low as reasonably achievable to obtain optimal diagnostic quality images. DICOM format image data is available electronically for review and comparison. Follow-up recommendations for detected pulmonary nodules are based at a minimum on nodule size and pa tient risk factors according to Fleischner Society Guidelines. FINDINGS: LUNGS: There is partial consolidative infiltrate in the posterior right lower lung which has a sharp horizon kacy line of demarcation between normal and abnormal lung which does not conform to segmental anatomy. There are also a few scattered areas of non-consolidative infiltrate in the lateral lower lungs davi aterally. PLEURA: Tiny bilateral pleural effusions measuring less than 5 mm. MEDIASTINUM: The heart and great vessels demonstrate no acute abnormality. There is no mediastinal or hilar lymph adenopathy. AXILLAE: Within normal limits. No lymphadenopathy. SKELETAL: Within normal limits for patient age. CONCLUSION: 1. Unusual pattern of partially consolidative infiltrate in the posterior right lung with sharp linea r demarcation between normal and abnormal lung which does not conform to a segmental anatomy. 2. Tiny bilateral pleural effusions. Tha Martin MD on April 22, 2017 at 22:00 Board Certified Radiologist. This report was verified electronically.
--- NOTE | 2017-04-22 22:08 | PD ---
HPI Chief Complaint: Abdominal Pain Time Seen by Provider: 18:32 Travel History International Travel<30 days: No Contact w/Intl Traveler<30days: No Traveled to known affect area: No History of Present Illness HPI 89-year-old male with PMH of COPD, HTN, A. fib, on Plavix arrives to the ED from private residence via EMS for evaluation of several weeks' history of worsening abdominal pain. Per EMS report the pain is sharp and spasming today with constipation "for a while." Patient has dementia at baseline. He is alert to self only. He is unable to provide any more meaningful history. PFSH Past Medical History Hx Anticoagulant Therapy: Yes Arthritis: No Asthma: No Autoimmune Disease: No Anxiety: No Depression: No Heart Rhythm Problems: Yes (UNKNOWN) Cancer: Yes (MELANOMAS OF SKIN REMOVED) Cardiac Catheterization: Yes Cardiovascular Problems: Yes (A-FIB) High Cholesterol: Yes Chemotherapy: No Chest Pain: No Congestive Heart Failure: Yes COPD: Yes Cerebrovascular Accident: No Coronary Artery Disease: Yes Diabetes: Yes Patient Takes Glucophage: No Diminished Hearing: Yes (MASHPEE) Endocrine: No Gastrointestinal Disorders: Yes (DIARRHEA, CONSTIPATION) GERD: Yes Genitourinary: Yes (FREQUENCY, INCONTINENCE, BPH) Headaches: No Hepatitis: No Hiatal Hernia: No Hypertension: Yes Immune Disorder: No Implanted Vascular Access Dvce: Yes Kidney Stones: No Medical other: Yes (BPH,FREQUENT URINATION WHEN LYING DOWN,GERD) Musculoskeletal: No Neurologic: Yes Psychiatric: No Reproductive: No Respiratory: Yes (COPD) Immunizations Current: Yes Migraines: No Radiation Therapy: No Renal Failure: No Seizures: No Sleep Apnea: No Thyroid Disease: No Ulcer: No Past Surgical History Abdominal Surgery: No AICD: No Arteriovenous Shunt: No Body Medical Devices: HEART STENTS Cardiac Surgery: Yes (STENTS) Coronary Stent: Yes Ear Surgery: No Endocrine Surgery: No Eye Surgery: Yes (RIGHT EYE CATARACT) Genitourinary Surgery: Yes Gynecologic Surgery: No Hysterectomy: No Insulin Pump: No Joint Replacement: No Neurologic Surgery: No Oral Surgery: Yes (T & A) Pacemaker: No Thoracic Surgery: No Other Surgery: Yes (HAD COLONOSCOPY WITH POLYPS REMOVED 04/18-BENIGN) Family History Family Myocardial Infarction: Yes (MOTHER & FATHER) Social History Alcohol Use: No Tobacco Use: No (QUIT 07/2008) Substance Use: No Allergies-Medications (Allergen,Severity, Reaction): Coded Allergies: No Known Allergies (Verified Allergy, Unknown, 04/22/17) Reported Meds & Prescriptions Reported Meds & Active Scripts Active Metoprolol Tartrate 25 Mg Tab 25 Mg PO BID Isosorbide Mononitrate ER (Isosorbide Mononitrate) 30 Mg Phani 90 Mg PO DAILY@07 Reported Finasteride 5 Mg Tab 5 Mg PO DAILY Do not crush. Carafate (Sucralfate) 1 Gram Tab 1 Gm PO QID On empty stomach Mirtazapine 7.5 Mg Tab 15 Mg PO HS Plavix (Clopidogrel Bisulfate) 75 Mg Tab 75 Mg PO DAILY Gabapentin 300 Mg Cap 300 Mg PO HS Atorvastatin (Atorvastatin Calcium) 80 Mg Tab 80 Mg PO HS Review of Systems ROS Limitations: Poor Historian Except as stated in HPI: all other systems reviewed are Neg Physical Exam Narrative GENERAL: Ill-appearing white male with some extra work of breathing. SKIN: Focused skin assessment warm/dry. HEAD: Normocephalic. EYES: No scleral icterus. No injection or drainage. NECK: Supple, trachea midline. No JVD or lymphadenopathy. CARDIOVASCULAR: Regular rate and rhythm without murmurs, gallops, or rubs. RESPIRATORY: Breath sounds with Rales bilaterally. Positive accessory muscle use. GASTROINTESTINAL: Abdomen soft, nondistended, tender to palpation in the left upper and lower quadrants. Hypoactive bowel sounds. MUSCULOSKELETAL: No cyanosis, or edema. BACK: Nontender without obvious deformity. No CVA tenderness. Data Data Last Documented VS Vital Signs Date Time Temp Pulse Resp B/P (MAP) Pulse Ox O2 Delivery O2 Flow Rate FiO2 04/22/17 22:46 87 34 92/58 (69) 100 BiPAP 04/22/17 19:55 35 04/22/17 19:37 99.5 3.00 Orders Orders Complete Blood Count With Diff (04/22/17 18:36) Comprehensive Metabolic Panel (04/22/17 18:36) Prothrombin Time / Inr (Pt) (04/22/17 18:36) Act Partial Throm Time (Ptt) (04/22/17 18:36) Urinalysis - C+S If Indicated (04/22/17 18:36) Ct Abd/Pel W Iv Contrast(Rout) (04/22/17 18:36) Iv Access Insert/Monitor (04/22/17 18:36) Ecg Monitoring (04/22/17 18:36) Oximetry (04/22/17 18:36) Sodium Chloride 0.9% Flush (Ns Flush) (04/22/17 18:45) Electrocardiogram (04/22/17 18:36) Chest, Single Ap (04/22/17 ) B-Type Natriuretic Peptide (04/22/17 18:36) Sodium Chloride 0.9% Flush (Ns Flush) (04/22/17 18:45) Methylprednisolone So Succ Inj (Solumedr (04/22/17 18:45) Albuterol-Ipratropium Neb (Duoneb Neb) (04/22/17 18:45) Troponin I (04/22/17 18:36) Ckmb (Isoenzyme) Profile (04/22/17 18:36) Lactic Acid Sepsis Protocol (04/22/17 18:59) Sodium Chlorid 0.9% 500 Ml Inj (Ns 500 M (04/22/17 19:30) Blood Culture (04/22/17 19:59) Sodium Chlorid 0.9% 500 Ml Inj (Ns 500 M (04/22/17 20:00) Ct Thorax/ Chest W Iv Contrast (04/22/17 ) Iohexol 350 Inj (Omnipaque 350 Inj) (04/22/17 17:38) Ceftriaxone Inj (Rocephin Inj) (04/22/17 21:57) Azithromycin Inj (Zithromax Inj) (04/22/17 21:57) Admit Order (Ed Use Only) (04/22/17 22:51) Labs Laboratory Tests Test 04/22/17 18:45 04/22/17 19:15 04/22/17 19:25 04/22/17 22:15 White Blood Count 20.1 TH/MM3 Red Blood Count 4.43 MIL/MM3 Hemoglobin 13.4 GM/DL Hematocrit 40.6 % Mean Corpuscular Volume 91.6 FL Mean Corpuscular Hemoglobin 30.3 PG Mean Corpuscular Hemoglobin Concent 33.1 % Red Cell Distribution Width 14.5 % Platelet Count 146 TH/MM3 Mean Platelet Volume 10.7 FL Neutrophils (%) (Auto) 74.1 % Lymphocytes (%) (Auto) 21.0 % Monocytes (%) (Auto) 4.3 % Eosinophils (%) (Auto) 0.4 % Basophils (%) (Auto) 0.2 % Neutrophils # (Auto) 15.0 TH/MM3 Lymphocytes # (Auto) 4.2 TH/MM3 Monocytes # (Auto) 0.9 TH/MM3 Eosinophils # (Auto) 0.1 TH/MM3 Basophils # (Auto) 0.0 TH/MM3 CBC Comment DIFF FINAL Differential Comment Prothrombin Time 10.6 SEC Prothromb Time International Ratio 1.0 RATIO Activated Partial Thromboplast Time 22.5 SEC Blood Urea Nitrogen 15 MG/DL Creatinine 0.88 MG/DL Random Glucose 253 MG/DL Total Protein 6.6 GM/DL Albumin 3.4 GM/DL Calcium Level 8.4 MG/DL Alkaline Phosphatase 76 U/L Aspartate Amino Transf (AST/SGOT) 34 U/L Alanine Aminotransferase (ALT/SGPT) 33 U/L Total Bilirubin 0.5 MG/DL Sodium Level 139 MEQ/L Potassium Level 4.3 MEQ/L Chloride Level 102 MEQ/L Carbon Dioxide Level 28.6 MEQ/L Anion Gap 8 MEQ/L Estimat Glomerular Filtration Rate 82 ML/MIN Total Creatine Kinase 86 U/L Troponin I 0.13 NG/ML B-Type Natriuretic Peptide 192 PG/ML Lactic Acid Level 3.9 mmol/L 2.7 mmol/L Urine Color LIGHT-YELLOW Urine Turbidity CLEAR Urine pH 7.0 Urine Specific [place] 1.012 Urine Protein 30 mg/dL Urine Glucose (UA) NEG mg/dL Urine Ketones NEG mg/dL Urine Occult Blood NEG Urine Nitrite NEG Urine Bilirubin NEG Urine Urobilinogen LESS THAN 2.0 MG/DL Urine Leukocyte Esterase NEG Urine RBC 3 /hpf Urine WBC 1 /hpf Urine Squamous Epithelial Cells <1 /hpf Microscopic Urinalysis Comment CULT NOT INDICATED MDM Medical Decision Making Medical Screen Exam Complete: Yes Emergency Medical Condition: Yes Differential Diagnosis Diverticulitis versus constipation versus pneumonia versus other Narrative Course 89-year-old male with PMH of HTN, COPD, A. fib, on Plavix presents to the ED via EMS for reported few weeks history of left upper and lower quadrant abdominal pain. On arrival temp is 99.6, pulse 110, BP 250/110. O2 sats 99% on 4 L nasal cannula. On exam this is an ill-appearing white male who is unable to provide much history. He does have coarse breath sounds bilaterally with some extra work of breathing as well as tenderness to palpation in the left upper and lower quadrants of the abdomen. IV was established. Patient was administered 60 mg of Solu-Medrol, DuoNeb 2, a total of 1 L normal saline. EKG: Rate 131, sinus tachycardia. SC interval 134, QRS 110, QTC 376 ms. LAD. Evaluated by Dr. Ohara. CXR: The lungs are clear per radiology read. Cardiac enzymes: Troponin 0.13. CK 86. BNP 192. CBC: WBC 20.1. Hemoglobin 13.4. Coags: INR 1.0. Chemistry: BUN 15, creatinine 0.88. Glucose 253. Calcium 8.4. Lactic acid: 3.9. UA: No culture indicated. Chest CT right lower lobe infiltrate by my read. CT abdomen: Partial consolidative infiltrate in the posterior right lower lung, new finding from 04/10/17. Mild constipation without dilated loops of small bowel. 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 The patient's daughter arrives and states that her dad was fine until after lunch today when he became rigorous and began to cough up large chunks of brown phlegm. Patient states that she doesn't really know much about her dad's history and her mom is currently in rehabilitation after hip replacement. Reviewed the patient's record. 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 Patient was administered IV azithromycin and Rocephin. Pulse 98, BP 74/49, O2 sats 98% on BiPAP. Patient was administered another liter of NS. I discussed the patient with Dr. Price who agrees to accept him in the ICU. Please see medicine notes for disposition. Sepsis Criteria SIRS Criteria (2 or more): Heart rate over 90, WBC > 45522, < 4000 or > 10% bands Sepsis Criteria (SIRS+source): Infect source susp/known Severe Sepsis (+one): Lactate >2 Criteria Outcome: Meets severe sepsis criteria Tammy Kamara Apr 22, 2017 22:08
[2017-04-22] MEDS: AZITHROMYCIN INJ 500 MG in SODIUM CHLOR 0.9% 250 ML INJ 250 ML IV STA ×2 (22:28→22:57)
[2017-04-22] MEDS ORDERED: CHLORHEXIDINE GLUCONATE 2 % 1 PACK (2 CLOTHS) TOP PRN (23:00)
[2017-04-22] MEDS ORDERED: MISCELLANEOUS NURSING INFORMATION XX SCH (23:00)
[2017-04-22] MEDS ORDERED: RESP: ALBUTEROL 2.5 MG/IPRATROPIUM 0.5 MG NEB (PRN) INH (23:00)
[2017-04-22] MEDS ORDERED: ACETAMINOPHEN 325 MG TAB PO PRN (23:00)
[2017-04-23] VITALS (24 sets, daily range): BP systolic 96–187; BP diastolic 56–88; PULSE 71–120; RESP 16–61; TEMP 97.8–98.8; O2SAT 95–100
[2017-04-23] MEDS: SODIUM CHLOR 0.9% 1000 ML INJ 1,000 ML IV SCH ×2 (00:19→12:45)
[2017-04-23] MEDS: metroNIDAZOLE 500 MG INJ 100 ML IV SCH ×4 (00:19→23:09)
[2017-04-23] MEDS: methylPREDNISolone SOD SUCC 40 MG/1 ML VIAL IV PUSH SCH ×4 (00:19→21:50)
--- NOTE | 2017-04-23 00:20 | HHI.HP ---
[facility] Service Critical Care Medicine Primary Care Physician Rey Cotter MD Admission Diagnosis sepsis pneumonia Diagnosis: Chief Complaint: Shortness of breath Travel History International Travel<30 Days: No Contact w/Intl Traveler <30 Da: No Traveled to Known Affected Are: No Sepsis Criteria SIRS Criteria (2 or more): Heart rate over 90, RR > 20 or PaCO2 < 32, WBC > 57662, < 4000 or > 10% bands Sepsis Criteria (SIRS+source): Infect source susp/known Severe Sepsis (+one): Organ Dysfunction, Lactate >2 Criteria Outcome: Meets severe sepsis criteria History of Present Illness Date of encounter 04/23/2017 History of Present Illness HPI 89-year-old male with a medical history significant for 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 fib, dementia who was brought to the ER by EMS for worsening cough and shortness of breath which started this afternoon. Patient brought up brownish phlegm at home per daughter. He has also been complaining of abdominal cramping pain over the last few days off and on. He was in fact evaluated in the ER at [place] on April 10 underwent imaging studies including a CAT scan which was unremarkable and was discharged home at that time. Today on arrival patient was short of breath with a cough and chills and left-sided abdominal pain. His O2 sats 88% initially on nasal cannula and he was placed on BiPAP. On arrival his systolic blood pressure was 250 heart rate 80s. Subsequently he had a drop in his blood pressure to the 90s systolic range. He received 2 L normal saline bolus and underwent imaging studies which revealed a right lower lobe infiltrate on CAT scan. He was initiated on empiric antibiotics with Rocephin and Zithromax as well as received Solu- Medrol. He did have a leukocytosis with a lactic acid of 3.[address] abdomen pelvis shows significant arteriosclerosis and he has a history of mesenteric angina. He did have a borderline elevation of his troponin. Patient was doing better with BiPAP on board. Critical care accepted patient for admission to the ICU. When I evaluated him in the ER he was on BiPAP with full facemask with O2 sats 100%. History was obtained by discussion with ER staff as well as patient's daughter at bedside. Reportedly patient's takes care of him however she was in rehabilitation following hip surgery. Per patient's daughter she does not think that his would want aggressive care however she will clarify with her and get back to us by the morning. She does not want any invasive procedures including central lines at this point. Patient will remain full CODE STATUS to a side effect vacation is obtained from patient's . Patient unable to give details of history due to significant dementia. PFSH Past Medical History Hx Anticoagulant Therapy: Yes Arthritis: No Asthma: No Autoimmune Disease: No Anxiety: No Depression: No Heart Rhythm Problems: Yes (UNKNOWN) Cancer: Yes (MELANOMAS OF SKIN REMOVED) Cardiac Catheterization: Yes Cardiovascular Problems: Yes (A-FIB) High Cholesterol: Yes Chemotherapy: No Chest Pain: No Congestive Heart Failure: Yes COPD: Yes Cerebrovascular Accident: No Coronary Artery Disease: Yes Diabetes: Yes Patient Takes Glucophage: No Diminished Hearing: Yes (MOHEGAN) Endocrine: No Gastrointestinal Disorders: Yes (DIARRHEA, CONSTIPATION) GERD: Yes Genitourinary: Yes (FREQUENCY, INCONTINENCE, BPH) Headaches: No Hepatitis: No Hiatal Hernia: No Hypertension: Yes Immune Disorder: No Implanted Vascular Access Dvce: Yes Kidney Stones: No Medical other: Yes (BPH,FREQUENT URINATION WHEN LYING DOWN,GERD) Musculoskeletal: No Neurologic: Yes Psychiatric: No Reproductive: No Respiratory: Yes (COPD) Immunizations Current: Yes Migraines: No Radiation Therapy: No Renal Failure: No Seizures: No Sleep Apnea: No Thyroid Disease: No Ulcer: No Past Surgical History Abdominal Surgery: No AICD: No Arteriovenous Shunt: No Body Medical Devices: HEART STENTS Cardiac Surgery: Yes (STENTS) Coronary Stent: Yes Ear Surgery: No Endocrine Surgery: No Eye Surgery: Yes (RIGHT EYE CATARACT) Genitourinary Surgery: Yes Gynecologic Surgery: No Hysterectomy: No Insulin Pump: No Joint Replacement: No Neurologic Surgery: No Oral Surgery: Yes (T & A) Pacemaker: No Thoracic Surgery: No Other Surgery: Yes (HAD COLONOSCOPY WITH POLYPS REMOVED 04/18-BENIGN) Family History Family Myocardial Infarction: Yes (MOTHER & FATHER) Social History Alcohol Use: No Tobacco Use: No (QUIT 07/2008) Substance Use: No Allergies-Medications (Allergen,Severity, Reaction): Coded Allergies: No Known Allergies (Verified Adverse Reaction, Unknown, 04/10/17) Reported Meds & Prescriptions Reported Meds & Active Scripts Active Metoprolol Tartrate 25 Mg Tab 25 Mg PO BID Isosorbide Mononitrate ER (Isosorbide Mononitrate) 30 Mg Phani 90 Mg PO DAILY@07 Reported Finasteride 5 Mg Tab 5 Mg PO DAILY Do not crush. Carafate (Sucralfate) 1 Gram Tab 1 Gm PO QID On empty stomach Mirtazapine 7.5 Mg Tab 15 Mg PO HS Plavix (Clopidogrel Bisulfate) 75 Mg Tab 75 Mg PO DAILY Gabapentin 300 Mg Cap 300 Mg PO HS Atorvastatin (Atorvastatin Calcium) 80 Mg Tab 80 Mg PO HS Review of Systems ROS Limitations: Poor Historian Except as stated in HPI: all other systems reviewed are Neg Physical Exam Vital Signs Vital Signs Date Time Temp Pulse Resp B/P (MAP) Pulse Ox O2 Delivery O2 Flow Rate FiO2 04/22/17 23:41 81 18 78/58 (65) 100 BiPAP 04/22/17 22:46 87 20 92/58 (69) 100 BiPAP 04/22/17 20:41 98 18 100 BiPAP 04/22/17 19:55 98 35 04/22/17 19:37 99.5 124 26 165/61 (95) 95 Nasal Cannula 3.00 04/22/17 19:29 26 93 Nasal Cannula 3.00 04/22/17 18:49 99 Nasal Cannula 4.00 04/22/17 18:28 128 45 186/84 (118) 88 Nasal Cannula 4.00 04/22/17 18:03 99.6 110 24 250/110 (156) 99 Physical Exam Physical Exam Narrative GENERAL: Ill-appearing white male on BiPAP with full facemask SKIN: Focused skin assessment warm/dry. HEAD neuro: Normocephalic. Awake, on BiPAP with full facemask, most both upper extremities. Baseline dementia EYES: No scleral icterus. No injection or drainage. NECK: Supple, trachea midline. No JVD or lymphadenopathy. CARDIOVASCULAR: Regular rate and rhythm without murmurs, gallops, or rubs. RESPIRATORY: Breath sounds with [place] bilaterally. Positive accessory muscle use. GASTROINTESTINAL: Abdomen soft, nondistended, tender to palpation in the left upper and lower quadrants. Hypoactive bowel sounds. MUSCULOSKELETAL: No cyanosis, or edema. BACK: Nontender without obvious deformity. No CVA tenderness. Laboratory Laboratory Tests Test 04/22/17 18:45 04/22/17 19:15 04/22/17 19:25 04/22/17 22:15 White Blood Count 20.1 Red Blood Count 4.43 Hemoglobin 13.4 Hematocrit 40.6 Mean Corpuscular Volume 91.6 Mean Corpuscular Hemoglobin 30.3 Mean Corpuscular Hemoglobin Concent 33.1 Red Cell Distribution Width 14.5 Platelet Count 146 Mean Platelet Volume 10.7 Neutrophils (%) (Auto) 74.1 Lymphocytes (%) (Auto) 21.0 Monocytes (%) (Auto) 4.3 Eosinophils (%) (Auto) 0.4 Basophils (%) (Auto) 0.2 Neutrophils # (Auto) 15.0 Lymphocytes # (Auto) 4.2 Monocytes # (Auto) 0.9 Eosinophils # (Auto) 0.1 Basophils # (Auto) 0.0 CBC Comment DIFF FINAL Differential Comment Prothrombin Time 10.6 Prothromb Time International Ratio 1.0 Activated Partial Thromboplast Time 22.5 Blood Urea Nitrogen 15 Creatinine 0.88 Random Glucose 253 Total Protein 6.6 Albumin 3.4 Calcium Level 8.4 Alkaline Phosphatase 76 Aspartate Amino Transf (AST/SGOT) 34 Alanine Aminotransferase (ALT/SGPT) 33 Total Bilirubin 0.5 Sodium Level 139 Potassium Level 4.3 Chloride Level 102 Carbon Dioxide Level 28.6 Anion Gap 8 Estimat Glomerular Filtration Rate 82 Total Creatine Kinase 86 Troponin I 0.13 B-Type Natriuretic Peptide 192 Lactic Acid Level 3.9 2.7 Urine Color LIGHT-YELLOW Urine Turbidity CLEAR Urine pH 7.0 Urine Specific [place] 1.012 Urine Protein 30 Urine Glucose (UA) NEG Urine Ketones NEG Urine Occult Blood NEG Urine Nitrite NEG Urine Bilirubin NEG Urine Urobilinogen LESS THAN 2.0 Urine Leukocyte Esterase NEG Urine RBC 3 Urine WBC 1 Urine Squamous Epithelial Cells <1 Microscopic Urinalysis Comment CULT NOT INDICATED Date/Time Source Procedure Growth Status 04/22/17 20:35 Blood Line Aerobic Blood Culture Pending Received 04/22/17 20:35 Blood Line Anaerobic Blood Culture Pending Received Result Diagram: 04/22/17 1845 04/22/171844 Imaging Last Impressions Abdomen/Pelvis CT 04/22/17 183 Signed Impressions: Service Date/Time: Saturday, April 22, 2017 21:26 - CONCLUSION: 1. Partial consolidative infiltrate in the posterior right lower lung, a new finding from 04/10/17. 2. Mild constipation without dilated loops of small bowel. 3. 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 Tha Martin MD Chest X-Ray 04/22/17 0000 Signed Impressions: Service Date/Time: Saturday, April 22, 2017 18:49 - CONCLUSION: The lungs are clear. Tha Martin MD Chest CT 04/22/17 0000 Signed Impressions: Service Date/Time: Saturday, April 22, 2017 21:26 - CONCLUSION: 1. Unusual pattern of partially consolidative infiltrate in the posterior right lung with sharp linear demarcation between normal and abnormal lung which does not conform to a segmental anatomy. 2. Tiny bilateral pleural effusions. Tha Martin MD Septic Shock Reassessment Septic shock perfusion: reassessment completed Caprini VTE Risk Assessment Caprini VTE Risk Assessment: Mod/High Risk (score >= 2) Caprini Risk Assessment Model Point Value = 1 Point Value = 2 Point Value = 3 Point Value = 5 Age 41-60 Minor surgery BMI > 25 kg/m2 Swollen legs Varicose veins or History of unexplained or recurrent spontaneous Oral contraceptives or hormone replacement Sepsis (< 1 month) Serious lung disease, including pneumonia (< 1 month) Abnormal pulmonary function Acute myocardial infarction Congestive heart failure (< 1 month) History of inflammatory bowel disease Medical patient at bed rest Age 61-74 Arthroscopic surgery Major open surgery (> 45 min) Laparoscopic surgery (> 45 min) Malignancy Confined to bed (> 72 hours) Immobilizing plaster cast Central venous access Age >= 75 History of VTE Family history of VTE Factor V Leiden Prothrombin [id number] Lupus anticoagulant Anticardiolipin antibodies Elevated serum homocysteine Heparin-induced thrombocytopenia Other congenital or acquired thrombophilia Stroke (< 1 month) Elective arthroplasty Hip, pelvis, or leg fracture Acute spinal cord injury (< 1 month) Prophylaxis Regimen Total Risk Factor Score Risk Level Prophylaxis Regimen 0-1 Low Early ambulation 2 Moderate Order ONE of the following: *Sequential Compression Device (SCD) *Heparin 5000 units SQ BID 3-4 Higher Order ONE of the following medications: *Heparin 5000 units SQ TID *Enoxaparin/Lovenox 40 mg SQ daily (WT < 150 kg, CrCl > 30 mL/min) *Enoxaparin/Lovenox 30 mg SQ daily (WT < 150 kg, CrCl > 10-29 mL/min) *Enoxaparin/Lovenox 30 mg SQ BID (WT < 150 kg, CrCl > 30 mL/min) AND/OR *Sequential Compression Device (SCD) 5 or more Highest Order ONE of the following medications: *Heparin 5000 units SQ TID (Preferred with Epidurals) *Enoxaparin/Lovenox 40 mg SQ daily (WT < 150 kg, CrCl > 30 mL/min) *Enoxaparin/Lovenox 30 mg SQ daily (WT < 150 kg, CrCl > 10-29 mL/min) *Enoxaparin/Lovenox 30 mg SQ BID (WT < 150 kg, CrCl > 30 mL/min) AND *Sequential Compression Device (SCD) Assessment and Plan Assessment and Plan 89-year-old male with: Acute respiratory failure requiring BiPAP Right lower lobe pneumonia suspicious for aspiration Suspected aspiration Severe sepsis Advanced dementia History of A. fib History of BPH History of mesenteric angina Abdominal pain Hypotension CAD Plan: Neuro: Follow neuro status. Avoid sedatives and narcotics. Cardiovascular: Hold all antihypertensives. Received 2 L normal saline bolus. Will use vasopressin 0.04 units per minute for hypotension at this time as needed. Pulmonary: Continue BiPAP with full facemask. [place] dilated treatments, IV Solu -Medrol. If respiratory status declines despite BiPAP at this point we'll proceed with intubation until further clarification regarding CODE STATUS by patient's daughter/.. GI/liver: Nothing by mouth for now till improvement in respiratory status. Concern regarding aspiration Renal/: IV hydration, strict intake output, monitor and replete electro lites , follow BUN/creatinine. Manzano catheterization for accurate intake output. ID: Follow-up blood cultures. Empiric antibiotic coverage with IV Rocephin/ Flagyl/Zithromax. Awaiting flu swab for influenza A and B. Suspect aspiration pneumonia. Endocrine: Watch for hyperglycemia, SSI for glycemic control if needed. Heme: Follow CBC Prophylaxis: Pepcid/SCDs/subcutaneous heparin Discussed with patient's daughter at bedside. She is not sure if her mother wouldn't want aggressive measures at this time and is attempting to contact her. We'll consult palliative care to assisted deciding goals of therapy. Patient remains full CODE STATUS at this time until further clarification obtained from family. Patient's daughter however does not want invasive procedures like central lines done at this time. Condition critical Time spent on critical care excluding procedures 50 minutes Álvaro Price MD Apr 23, 2017 00:20
[2017-04-23] MEDS: RESP: ALBUTEROL 2.5 MG/IPRATROPIUM 0.5 MG NEB (SCH) NEB ×7 (00:49→23:41)
[2017-04-23] MEDS: VASOPRESSIN INJ 40 UNITS in DEXTROSE 5% IN WATER 100ML INJ 98 ML IV SCH ×4 (02:06→16:26)
[2017-04-23] MEDS ORDERED: RESP: ALBUTEROL 2.5 MG/IPRATROPIUM 0.5 MG NEB (SCH) NEB (04:00)
[2017-04-23] MEDS: CHLORHEXIDINE GLUCONATE 2 % 1 PACK (2 CLOTHS) TOP SCH (04:00)
[2017-04-23 05:50] LABS: AUTOMATED NEUTROPHIL # 13.4 TH/MM3 (1.8-7.7); HEMATOCRIT 35.7 % (39.0-51.0); HEMOGLOBIN 11.8 GM/DL (13.0-17.0); LYMPH % 3.7 % (9.0-44.0); LYMPHOCYTE # 0.5 TH/MM3 (1.0-4.8); MEAN CELL VOLUME 90.4 FL (80.0-100.0); MEAN CORPUSCULAR HEMOGLOBIN 29.8 PG (27.0-34.0); MEAN CORPUSCULAR HGB CONC 32.9 % (32.0-36.0); MEAN PLATELET VOLUME 11.2 FL (7.0-11.0); MONO % 3.1 % (0.0-8.0); MONOCYTE # 0.5 TH/MM3 (0-0.9); NEUT % 93.2 % (16.0-70.0); PLATELET COUNT 91 TH/MM3 (150-450); RED BLOOD COUNT 3.95 MIL/MM3 (4.50-5.90); RED CELL DISTRIBUTION WIDTH 14.3 % (11.6-17.2); WHITE BLOOD COUNT 14.3 TH/MM3 (4.0-11.0)
[2017-04-23 05:57] LABS: BICARBONATE 21.3 MEQ/L (21.0-32.0); CALCIUM 8.1 MG/DL (8.5-10.1); CREATININE 1.01 MG/DL (0.60-1.30)
[2017-04-23 06:05] LABS: TROPONIN I 1.73 NG/ML (0.02-0.05)
[2017-04-23] MEDS: CHLORHEXIDINE 0.12% (ORAL KIT) 15 ML CUP MT SCH ×2 (08:00→20:00)
[2017-04-23] MEDS: FAMOTIDINE 20 MG/2 ML VIAL IV PUSH SCH ×2 (08:14→20:01)
[2017-04-23] MEDS: SODIUM CHLORIDE 0.9% FLUSH 10 ML FLUSH IV FLUSH SCH ×2 (08:15→20:01)
[2017-04-23] MEDS: HEPARIN SODIUM - SQ 10,000 UNITS/ML VIAL SQ SCH ×2 (08:34→16:29)
--- NOTE | 2017-04-23 10:56 | HHI.CCPN ---
Subjective Remarks/Hospital Course 89-year-old male with a medical history significant for 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 fib, dementia who was brought to the ER by EMS for worsening cough and shortness of breath which started this afternoon. Patient brought up brownish phlegm at home per daughter. He has also been complaining of abdominal cramping pain over the last few days off and on. He was in fact evaluated in the ER at [place] on April 10 underwent imaging studies including a CAT scan which was unremarkable and was discharged home at that time. Today on arrival patient was short of breath with a cough and chills and left-sided abdominal pain. His O2 sats 88% initially on nasal cannula and he was placed on BiPAP. On arrival his systolic blood pressure was 250 heart rate 80s. Subsequently he had a drop in his blood pressure to the 90s systolic range. He received 2 L normal saline bolus and underwent imaging studies which revealed a right lower lobe infiltrate on CAT scan. He was initiated on empiric antibiotics with Rocephin and Zithromax as well as received Solu- Medrol. He did have a leukocytosis with a lactic acid of 3.[address] abdomen pelvis shows significant arteriosclerosis and he has a history of mesenteric angina. He did have a borderline elevation of his troponin. Patient was doing better with BiPAP on board. Critical care accepted patient for admission to the ICU. When I evaluated him in the ER he was on BiPAP with full facemask with O2 sats 100%. History was obtained by discussion with ER staff as well as patient's daughter at bedside. Reportedly patient's takes care of him however she was in rehabilitation following hip surgery. Per patient's daughter she does not think that his would want aggressive care however she will clarify with her and get back to us by the morning. She does not want any invasive procedures including central lines at this point. Patient will remain full CODE STATUS to a side effect vacation is obtained from patient's . Patient unable to give details of history due to significant dementia. Subjective 04/23: Currently off BiPAP and on room air. Weaning off vasopressors. Patients can concern that the weather is getting cooler. Appears to be back at baseline neurologically. Objective Vital Signs Date Time Temp Pulse Resp B/P (MAP) Pulse Ox O2 Delivery O2 Flow Rate FiO2 04/23/17 09:00 78 23 119/67 (84) 98 04/23/17 08:00 98.3 04/23/17 07:55 Nasal Cannula 2.00 04/23/17 03:29 30 Intake and Output 04/23/17 04/23/17 04/23/17 07:59 15:59 23:59 Output Total 400 ml Balance -400 ml Result Diagram: 04/23/17 0511 04/23/17 0511 Other Results Microbiology Date/Time Source Procedure Growth Status 04/22/17 20:35 Blood Line Aerobic Blood Culture Pending Received 04/22/17 20:35 Blood Line Anaerobic Blood Culture Pending Received Imaging Last Impressions Abdomen/Pelvis CT 04/22/17 1836 Signed Impressions: Service Date/Time: Saturday, April 22, 2017 21:26 - CONCLUSION: 1. Partial consolidative infiltrate in the posterior right lower lung, a new finding from 04/10/17. 2. Mild constipation without dilated loops of small bowel. 3. 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 Tha Martin MD Chest X-Ray 04/22/17 0000 Signed Impressions: Service Date/Time: Saturday, April 22, 2017 18:49 - CONCLUSION: The lungs are clear. Tha Martin MD Chest CT 04/22/17 0000 Signed Impressions: Service Date/Time: Saturday, April 22, 2017 21:26 - CONCLUSION: 1. Unusual pattern of partially consolidative infiltrate in the posterior right lung with sharp linear demarcation between normal and abnormal lung which does not conform to a segmental anatomy. 2. Tiny bilateral pleural effusions. Tha Martin MD Objective Remarks GENERAL: 89-year-old male currently resting in bed in room air in no acute distress SKIN: Focused skin assessment warm/dry. Multiple upper extremity ecchymoses noted HEAD normocephalic/atraumatic EYES: No scleral icterus. No injection or drainage. NECK: Supple, trachea midline. No JVD or lymphadenopathy. CARDIOVASCULAR: Regular rate and rhythm. S1, S2 no S4. Without murmurs, gallops, or rubs. RESPIRATORY: Few crackles scattered appreciated in the bases bilaterally. No wheezing GASTROINTESTINAL: Abdomen soft, nondistended, currently nontender to palpation. Hypoactive bowel sounds are appreciated MUSCULOSKELETAL: No significant peripheral edema. NEURO: Cranial nerves II through XII appear to be grossly intact. Moves all 4 extremities spontaneously to command. Urinary Catheter: No Assessment to: Continue Vascular Central Line Catheter: No Assessment to: Continue A/P Assessment and Plan Neuro/Psych: Dementia disorder NOS History of recurrent TIA Depression disorder Currently on acetaminophen 650 mg p.o. every 4 hours as needed fever/pain 1 through 10 Continue mirtazapine 15 mg at night/home medication Follow neuro status. Avoid sedatives and narcotics. Cardiovascular: Atrial fibrillation currently rate controlled ASCVD Dyslipidemia History of congestive heart Coronary artery disease -involving left main, LAD, circumflex, RCA in 2011 cardiac catheterization Elevated troponin Received 2 L normal saline bolus. Weaning off vasopressin 0.04 units per minute for hypotension at this time as needed. Restart metoprolol tartrate 25 mg p.o. twice daily/home medication Holding isosorbide mononitrate 60 g p.o. daily. Resume clinically indicated Resume clopidogrel 75 mg p.o. daily Resume atorvastatin 80 mg p.o. daily for dyslipidemia Echocardiogram 2015 revealed EF 55-60%. Moderate TR. No regional wall motion [place]. Consult -his regular senior investment manager for assistance in management. Pulmonary: Acute respiratory failure secondary to aspiration COPD Continue BiPAP with full facemask. Nasal cannula to maintain saturations greater than equal to 92% Incentive spirometry while awake Albuterol/ipratropium aerosols every 6 hours with albuterol aerosols every 2 hours. Dyspnea Budesonide 0.5/2 1 inhalation twice daily Methylprednisolone succinate 40 mg IV every 8 hours GI/liver: Abdominal pain NOS Constipation History of mesenteric angina History of colonic polyps Gastroesophageal reflux disease Nothing by mouth for now till improvement in respiratory status. Concern regarding aspiration speech therapy will evaluate and treat today. Advance diet as tolerated Renal/: BPH IV hydration, strict intake output, monitor and replete electro lites, follow BUN/creatinine. Manzano catheterization for accurate intake output. ID: Follow-up blood cultures. Empiric antibiotic coverage with IV ceftriaxone/metronidazole/azithromycin awaiting flu swab for influenza A and B. Suspect aspiration pneumonia. Endocrine: History of diabetes mellitus Watch for hyperglycemia, SSI for glycemic control if needed. With Novulog Heme: Leukocytosis Normocytic anemia Thrombocytopenia History of head and neck cancer Follow CBC. Monitor trends FEN: Replace electrolytes as clinically indicated MSK: Osteoarthritis PT/OT evaluate and treat Access -Utilize peripheral IV. Central line if indicated Prophylaxis -GI -famotidine -DVT -SCD/heparin subcu 15 additional time spent in care patient Wagner Tirado MD Apr 23, 2017 10:56
[2017-04-23] MEDS ORDERED: RESP: ALBUTEROL 2.5 MG/3 ML NEB (PRN) NEB (11:15)
[2017-04-23 13:10] LABS: TROPONIN I 1.56 NG/ML (0.02-0.05)
[2017-04-23] MEDS: SUCRALFATE 1 GM TAB PO SCH ×3 (13:10→20:02)
--- NOTE | 2017-04-23 13:19 | PD.CONS ---
Consult Service Palliative Care Consult Requested By Dr. Aj Price . Primary Care Physician Rey Cotter MD . Reason for Consultation a. To assist with evaluation and management of symptoms including: Dyspnea, agitation b. To assist medical decision maker(s) with: better understanding of current medical conditions; weighing benefits/burdens of medical treatment options; making medical treatment decisions. . 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 CTA of the abdomen did not indicate obvious ischemia, and the patient was returned home. He returned to the emergency department on 04/22/17 because of a cough, shortness of breath, and ongoing but intermittent abdominal pain. Findings in the emergency department included: * Alert, weak, confused * Temp 99.5, pulse 87, respirations 20, blood pressure 92/58, oxygen saturation 88% on room air, then 100% on BiPAP * White count 20.1, hemoglobin 13.4 * Sodium 139, creatinine 0.88 * Troponin 0.13 * Urinalysis negative * Chest x-ray initially clear * CT of the chest revealed consolidation in the right Cultures were obtained and antibiotics and fluids were started. The patient's blood pressure was as low as 74/49, and he was admitted to intensive care. Blood cultures have been negative as of the time of this dictation. Overnight, the patient has become more alert, his blood pressure has normalized , and he has just recently been taken off of pressors. He is alert and talkative, but remains confused and somewhat agitated. His white count is down to 14, but his follow-up troponin levels are 1.7, consistent with a non-ST elevation LA. The patient's is in a rehab facility at this time, and the patient's daughter Jennifer has been in town to assist them. Palliative Care was consulted to assist with symptom management, and to enter into discussions with the family regarding the patient's current illnesses, the prognosis, and the benefits and burdens of the various treatment choices. . Function/Cognitive Trajectory The patient's reports that the patient would ambulate independently at home , but he was continuously confused. She said he still could "mostly dress himself" and could feed himself. He would get dyspneic with taking a few steps because of his COPD. . Review of Systems ROS Limitations: Clinical Condition (Confused, history per family, staff, and medical records) Constitutional: COMPLAINS OF: Fever Endocrine: DENIES: Polyuria Eyes: DENIES: Eye inflammation Ears, nose, mouth, throat: DENIES: Epistaxis Respiratory: COMPLAINS OF: Cough, Shortness of breath Gastrointestinal: COMPLAINS OF: Abdominal pain (Intermittently for weeks), DENIES: Bloody stools, Constipation, Diarrhea, Vomiting Genitourinary: DENIES: Hematuria Musculoskeletal: DENIES: Joint Swelling Integumentary: DENIES: Rash Hematologic/Lymphatics: DENIES: Lymphadenopathy Immunologic/Allergic: DENIES: Urticaria Neurologic: DENIES: Localized weakness, Seizures Psychiatric: COMPLAINS OF: Confusion (Chronic), Agitation Past Family Social History Coded Allergies: No Known Allergies (Verified Allergy, Unknown, 04/22/17) Past Medical History * Dementia for 2 or 3 years * History of mesenteric artery stenosis, angina * TIA 2010 * CAD, stent 2 * 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 Past Surgical History * Cataracts * Cardiac cath 2010 * Right femoral endarterectomy * Skin cancer excisions . Reported Medications Reported Meds & Active Scripts Active Metoprolol Tartrate 25 Mg Tab 25 Mg PO BID Isosorbide Mononitrate ER (Isosorbide Mononitrate) 30 Mg Phani 90 Mg PO DAILY@07 Reported Finasteride 5 Mg Tab 5 Mg PO DAILY Do not crush. Carafate (Sucralfate) 1 Gram Tab 1 Gm PO QID On empty stomach Mirtazapine 7.5 Mg Tab 15 Mg PO HS Plavix (Clopidogrel Bisulfate) 75 Mg Tab 75 Mg PO DAILY Gabapentin 300 Mg Cap 300 Mg PO HS Atorvastatin (Atorvastatin Calcium) 80 Mg Tab 80 Mg PO HS . Current Medications Medications (Trade) Dose Ordered Sig/Danna Route Start Time Stop Time Status Last Admin Sodium Chloride 1,000 ml @ 75 mls/hr [id number] IV 04/22/17 22:59 04/23/17 12:45 (NS Flush) 2 ml UNSCH PRN IV FLUSH 04/22/17 23:00 (NS Flush) 2 ml BID IV FLUSH 04/23/17 09:00 04/23/17 08:15 (Tylenol) 650 mg Q6H PRN PO 04/22/17 23:00 (Peridex 0.12% Liq) 15 ml BID@08,20 MT 04/23/17 08:00 (Pepcid Inj) 20 mg Q12HR IV PUSH 04/23/17 09:00 04/23/17 08:14 (Heparin Inj) 5,000 units Q8H SQ 04/23/17 08:00 04/23/17 08:34 Miscellaneous Information 1 [id number] XX 04/22/17 23:00 (Chlorhexidine 2% Cloth) 3 pack Taper DAILY@04 TOP 04/23/17 04:00 04/19/18 03:59 (Chlorhexidine 2% Cloth) 3 pack UNSCH PRN TOP 04/22/17 23:00 Azithromycin 500 mg/Sodium Chloride 250 ml @ 250 mls/hr Q24H IV 04/23/17 20:00 Ceftriaxone Sodium 1000 mg/ Sodium Chloride 100 ml @ 200 mls/hr Q24H IV 04/23/17 21:00 Metronidazole 100 ml @ 100 mls/hr Q8H IV 04/23/17 00:00 04/23/17 08:15 Vasopressin 40 units/Dextrose 100 ml @ 6 mls/hr [id number] IV 04/22/17 23:46 04/23/17 02:06 (Duoneb Neb) 1 ampule Q4HR NEB NEB 04/23/17 00:00 04/23/17 11:00 (Lipitor) 80 mg HS PO 04/23/17 21:00 (Plavix) 75 mg DAILY PO 04/24/17 09:00 (Proscar) 5 mg DAILY PO 04/24/17 09:00 (Neurontin) 300 mg HS PO 04/23/17 21:00 (Lopressor) 25 mg BID PO 04/23/17 21:00 (Remeron) 15 mg HS PO 04/23/17 21:00 (Carafate) 1 gm QID PO 04/23/17 13:00 (SoluMEDROL INJ) 40 mg Q8HR IV PUSH 04/23/17 14:00 (Albuterol Neb) 2.5 mg Q2HR NEB PRN NEB 04/23/17 11:15 Family History Both parents had heart disease and LA. One daughter of a ruptured cerebral aneurysm. . Substance Use Tobacco: Quit smoking in 2008 Alcohol: None Prescription med abuse: None Illicits: None . . Psychosocial History The patient was born in [place], lived in many parts of the world while he was in the [employer], and came to [place] with his about 40 years ago. He has been living with his here. 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 The patient has been once, now for 63 years. They had 2 daughters, one a few years ago of a ruptured cerebral aneurysm. Daughter Jennifer lives in [place], but is in town now to help with both parents. . Spiritual/Cultural Factors The patient is not spiritual or mosque. . Living Will: Completed, but not made available Health Care Surrogate: Completed, but not made available Health Care Surrogate(s): The patient's reports that she is the decision maker. . Documented care wishes: The patient has a living will, reportedly with typical language about end-stage conditions. . Family/friends goals: The patient's reports that she and the patient had discussed end-of-life goals and wishes prior to him getting dementia, and that it was very clear to him then -- and is very clear to her now -- that he would not want to be resuscitated or placed on life support machines. She requests that we initiate DNR status, and she would like to discuss possible hospice services with a hospice admitting nurse again. She met with them last year once but did not engage their services. . Ethical and Legal Issues There are no ethical issues that would impact his care or decision making at this time. The patient lacks capacity for decision-making. The patient's is the designated surrogate. . Physical Exam Vital Signs Date Time Temp Pulse Resp B/P (MAP) Pulse Ox O2 Delivery O2 Flow Rate FiO2 04/23/17 09:00 78 23 119/67 (84) 98 04/23/17 08:00 98.3 92 61 114/59 (77) 99 04/23/17 07:55 99 Nasal Cannula 2.00 04/23/17 07:00 77 3/18 06:12 04/23/17 06:00 97.8 78 28 147/67 (93) 98 04/23/17 06:00 82 04/23/17 05:30 98 3.00 04/23/17 04:53 71 38 112/57 (75) 100 BiPAP 04/23/17 03:29 99 30 04/23/17 02:29 82 38 110/56 (74) 99 BiPAP 04/23/17 02:06 81 96/55 04/23/17 01:30 99 30 04/23/17 00:20 80 36 96/56 (69) 100 BiPAP 04/22/17 23:41 81 38 78/58 (65) 100 BiPAP 04/22/17 23:00 97 30 04/22/17 22:46 87 34 92/58 (69) 100 BiPAP 04/22/17 20:41 98 38 100 BiPAP 04/22/17 19:55 98 35 04/22/17 19:37 99.5 124 36 165/61 (95) 95 Nasal Cannula 3.00 04/22/17 19:29 26 93 Nasal Cannula 3.00 04/22/17 18:49 99 Nasal Cannula 4.00 04/22/17 18:28 128 45 186/84 (118) 88 Nasal Cannula 4.00 04/22/17 18:03 99.6 110 24 250/110 (156) 99 Exam CONSTITUTIONAL/GENERAL: This is an adequately nourished patient, agitated, and restraints. TUBES/LINES/DRAINS: Waist and wrist restraints, IV access, nasal oxygen SKIN: No jaundice, rashes, or lesions. Ecchymoses on upper extremities. No wounds seen anteriorly. Skin temperature appropriate. Not diaphoretic. HEAD: Atraumatic. Normocephalic. EYES: Pupils equal and round and reactive. Extraocular motions intact. No scleral icterus. No injection or drainage. Fundi not examined. ENT: Hearing grossly normal. Nose without bleeding or purulent drainage. Throat without visible erythema, exudates, masses, or lesions. NECK: Trachea midline. Supple, nontender. No palpable thyroid enlargement or nodularity. CARDIOVASCULAR: Regular rate and rhythm without murmurs, gallops, or rubs. No JVD. Peripheral pulses symmetric. RESPIRATORY/CHEST: Symmetric, diminished breath sounds bilateral. A couple mild rhonchi. GASTROINTESTINAL: Abdomen soft, non-tender, nondistended. No hepato-splenomegaly , or palpable masses. No guarding. Bowel sounds present. GENITOURINARY: Without palpable bladder distension. Manzano catheter in place. MUSCULOSKELETAL: Extremities without clubbing, cyanosis, or edema. No joint tenderness or effusion noted. No calf tenderness. No mottling or clubbing. LYMPHATICS: No palpable cervical or supraclavicular adenopathy. NEUROLOGICAL: Awake and alert. Moves all 4 extremities; speech is clear. PSYCHIATRIC: Agitated, restless, somewhat combative . Diagnostic Tests Laboratory Laboratory Tests Test 04/22/17 18:45 04/22/17 19:15 04/22/17 19:25 04/22/17 22:15 White Blood Count 20.1 TH/MM3 (4.0-11.0) Red Blood Count 4.43 MIL/MM3 (4.50-5.90) Hemoglobin 13.4 GM/DL (13.0-17.0) Hematocrit 40.6 % (39.0-51.0) Mean Corpuscular Volume 91.6 FL (80.0-100.0) Mean Corpuscular Hemoglobin 30.3 PG (27.0-34.0) Mean Corpuscular Hemoglobin Concent 33.1 % (32.0-36.0) Red Cell Distribution Width 14.5 % (11.6-17.2) Platelet Count 146 TH/MM3 (150-450) Mean Platelet Volume 10.7 FL (7.0-11.0) Neutrophils (%) (Auto) 74.1 % (16.0-70.0) Lymphocytes (%) (Auto) 21.0 % (9.0-44.0) Monocytes (%) (Auto) 4.3 % (0.0-8.0) Eosinophils (%) (Auto) 0.4 % (0.0-4.0) Basophils (%) (Auto) 0.2 % (0.0-2.0) Neutrophils # (Auto) 15.0 TH/MM3 (1.8-7.7) Lymphocytes # (Auto) 4.2 TH/MM3 (1.0-4.8) Monocytes # (Auto) 0.9 TH/MM3 (0-0.9) Eosinophils # (Auto) 0.1 TH/MM3 (0-0.4) Basophils # (Auto) 0.0 TH/MM3 (0-0.2) CBC Comment DIFF FINAL Differential Comment Prothrombin Time 10.6 SEC (9.8-11.6) Prothromb Time International Ratio 1.0 RATIO Activated Partial Thromboplast Time 22.5 SEC (24.3-30.1) Blood Urea Nitrogen 15 MG/DL (7-18) Creatinine 0.88 MG/DL (0.60-1.30) Random Glucose 253 MG/DL (74-106) Total Protein 6.6 GM/DL (6.4-8.2) Albumin 3.4 GM/DL (3.4-5.0) Calcium Level 8.4 MG/DL (8.5-10.1) Alkaline Phosphatase 76 U/L (45-117) Aspartate Amino Transf (AST/SGOT) 34 U/L (15-37) Alanine Aminotransferase (ALT/SGPT) 33 U/L (12-78) Total Bilirubin 0.5 MG/DL (0.2-1.0) Sodium Level 139 MEQ/L (136-145) Potassium Level 4.3 MEQ/L (3.5-5.1) Chloride Level 102 MEQ/L (98-107) Carbon Dioxide Level 28.6 MEQ/L (21.0-32.0) Anion Gap 8 MEQ/L (5-15) Estimat Glomerular Filtration Rate 82 ML/MIN (>89) Total Creatine Kinase 86 U/L (39-308) Troponin I 0.13 NG/ML (0.02-0.05) B-Type Natriuretic Peptide 192 PG/ML (0-100) Lactic Acid Level 3.9 mmol/L (0.4-2.0) 2.7 mmol/L (0.4-2.0) Urine Color LIGHT-YELLOW (YELLW/STRAW) Urine Turbidity CLEAR (CLEAR) Urine pH 7.0 (5.0-8.5) Urine Specific Blanchard 1.012 (1.002-1.035) Urine Protein 30 mg/dL (NEG-TRACE) Urine Glucose (UA) NEG mg/dL (NEG) Urine Ketones NEG mg/dL (NEG) Urine Occult Blood NEG (NEG) Urine Nitrite NEG (NEG) Urine Bilirubin NEG (NEG) Urine Urobilinogen LESS THAN 2.0 MG/DL (LESS Urine Leukocyte Esterase NEG (NEG) Urine RBC 3 /hpf (0-3) Urine WBC 1 /hpf (0-5) Urine Squamous Epithelial Cells <1 /hpf (0-5) Microscopic Urinalysis Comment CULT NOT INDICATED Test 04/23/17 05:11 04/23/17 06:05 04/23/17 11:12 White Blood Count 14.3 TH/MM3 (4.0-11.0) Red Blood Count 3.95 MIL/MM3 (4.50-5.90) Hemoglobin 11.8 GM/DL (13.0-17.0) Hematocrit 35.7 % (39.0-51.0) Mean Corpuscular Volume 90.4 FL (80.0-100.0) Mean Corpuscular Hemoglobin 29.8 PG (27.0-34.0) Mean Corpuscular Hemoglobin Concent 32.9 % (32.0-36.0) Red Cell Distribution Width 14.3 % (11.6-17.2) Platelet Count 91 TH/MM3 (150-450) Mean Platelet Volume 11.2 FL (7.0-11.0) Neutrophils (%) (Auto) 93.2 % (16.0-70.0) Lymphocytes (%) (Auto) 3.7 % (9.0-44.0) Monocytes (%) (Auto) 3.1 % (0.0-8.0) Eosinophils (%) (Auto) 0.0 % (0.0-4.0) Basophils (%) (Auto) 0.0 % (0.0-2.0) Neutrophils # (Auto) 13.4 TH/MM3 (1.8-7.7) Lymphocytes # (Auto) 0.5 TH/MM3 (1.0-4.8) Monocytes # (Auto) 0.5 TH/MM3 (0-0.9) Eosinophils # (Auto) 0.0 TH/MM3 (0-0.4) Basophils # (Auto) 0.0 TH/MM3 (0-0.2) CBC Comment AUTO DIFF Differential Comment AUTO DIFF CONFIRMED Blood Urea Nitrogen 18 MG/DL (7-18) Creatinine 1.01 MG/DL (0.60-1.30) Random Glucose 237 MG/DL (74-106) Calcium Level 8.1 MG/DL (8.5-10.1) Sodium Level 141 MEQ/L (136-145) Potassium Level 4.4 MEQ/L (3.5-5.1) Chloride Level 109 MEQ/L (98-107) Carbon Dioxide Level 21.3 MEQ/L (21.0-32.0) Anion Gap 11 MEQ/L (5-15) Estimat Glomerular Filtration Rate 70 ML/MIN (>89) Total Creatine Kinase 130 U/L (39-308) Troponin I 1.73 NG/ML (0.02-0.05) Nasal Screen MRSA (PCR) MRSA NOT DETECTED (NOT Result Diagram: 04/23/17 0511 04/23/17 0511 Microbiology Microbiology Date/Time Source Procedure Growth Status 04/22/17 20:35 Blood Line Aerobic Blood Culture - Preliminary NO GROWTH IN 1 DAY Resulted 04/22/17 20:35 Blood Line Anaerobic Blood Culture - Preliminary NO GROWTH IN 1 DAY Resulted 04/22/17 20:30 Blood Line Aerobic Blood Culture - Preliminary NO GROWTH IN 1 DAY Resulted 04/22/17 20:30 Blood Line Anaerobic Blood Culture - Preliminary NO GROWTH IN 1 DAY Resulted Imaging Last Impressions Abdomen/Pelvis CT 04/22/17 1836 Signed Impressions: Service Date/Time: Saturday, April 22, 2017 21:26 - CONCLUSION: 1. Partial consolidative infiltrate in the posterior right lower lung, a new finding from 04/10/17. 2. Mild constipation without dilated loops of small bowel. 3. 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 Tha Martin MD Chest X-Ray 04/22/17 0000 Signed Impressions: Service Date/Time: Saturday, April 22, 2017 18:49 - CONCLUSION: The lungs are clear. Tha Martin MD Chest CT 04/22/17 0000 Signed Impressions: Service Date/Time: Saturday, April 22, 2017 21:26 - CONCLUSION: 1. Unusual pattern of partially consolidative infiltrate in the posterior right lung with sharp linear demarcation between normal and abnormal lung which does not conform to a segmental anatomy. 2. Tiny bilateral pleural effusions. Tha Martin MD Patient/Family Conference Present at Family Conference: I spoke with the patient's daughter briefly, and then with the patient's at the rehab center via telephone. . Family Conference Time (mins): 36 Issues Discussed: * Palliative care role, purpose, approach * Hospice care role, purpose, approach * Additional medical, psychosocial, and spiritual history * Patients general health, functional status, and cognitive changes in the months leading up to the current hospitalization * Patient/family understanding of the current medical problems * Patient/family understanding of prognosis * Patients goals of care as best understood from advance directives and/or conversations and/or values * Current medical treatment options and benefits/burdens of those options * Likely scenarios comparing ongoing aggressive care with a transition to comfort measures only * Questions answered to the best of my ability * Palliative care contact information provided The patient's reports that she and the patient had discussed end-of-life goals and wishes prior to him getting dementia, and that it was very clear to him then -- and is very clear to her now -- that he would not want to be resuscitated or placed on life support machines. She requests that we initiate DNR status, and she would like to discuss possible hospice services with a hospice admitting nurse again. She met with them last year once but did not engage their services. . Assessment and Plan Disease Oriented Problem List: (1) Right lower lobe pneumonia, sepsis (2) Septic shock (3) Non-ST elevation LA (4) Respiratory failure Comment: Resolved with treatment overnight (5) Dementia (6) Mesenteric artery stenosis, angina (7) TIA 2011 (8) CAD, stenting 2 (9) Peripheral vascular disease (10) COPD on home oxygen (11) Hypertension (12) Hyperlipidemia (13) Mwf-uahbhic-nypywnedi diabetes (14) BPH (15) Sleep apnea, CPAP use (16) Skin cancer excisions Symptom Scale: (1) Agitation 0-10 Scale: Unable to quantify (2) Restlessness 0-10 Scale: Unable to quantify Pertinent Non-Medical Issues Psychosocial: for 63 years, 1 daughter living, 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 Spiritual: The patient is not spiritual or mosque Legal: The patient lacks capacity for decision making; the patient's is his healthcare decision maker proxy/surrogate. Ethical issues impacting care: None . Important Contacts Patient's : Anca Saravia The home phone is [phone] BUT SHE IS CURRENTLY AT [facility] after hip surgery, and her DIRECT LINE there is [phone]. Daughter: Jennifer [phone] . Prognosis With moderate dementia, moderately severe oxygen dependent COPD, and now the third episode of pneumonia within the past 1.5 years, the patient's overall prognosis is poor. He is appropriate for hospice services if the goals remain comfort oriented, and the patient's has requested a consultation with the hospitalist admitting nurse. . Code Status: No Code Plan * DO NOT RESUSCITATE, per request of 04/23/17 * GOALS: The patient's reports that she and the patient had discussed end- of-life goals and wishes prior to him getting dementia, and that it was very clear to him then -- and is very clear to her now -- that he would not want to be resuscitated or placed on life support machines. She requests that we initiate DNR status, and she would like to discuss possible hospice services with a hospice admitting nurse again. She met with them last year once but did not engage their services. * Hospice consult placed. * DECISION-MAKING: The patient lacks capacity for decision making; the patient' s is his healthcare decision maker proxy/surrogate. * Patient's : Anca Saravia. The home phone is [phone] BUT SHE IS CURRENTLY AT [facility] after hip surgery, and her DIRECT LINE there is [phone]. * SYMPTOMS: The patient does not seem to be in pain, but he is definitely becoming more agitated as he has become more alert, and he now is in restraints to keep him safe from falls and injury. * Palliative Care will continue to follow the patient during this hospitalization. . Time Spent Total Floor Time (mins): 79 Face to Face Time (mins): 31 >50% Counseling/Coord of Care: Yes Thank you for the opportunity to participate in the care of Mr. Saravia. Attestation To help prompt me to consider important information that might be impacting today's encounter and assessment, information from prior notes written by myself or my colleagues may have been "brought forward" into today's note. My signature on this note, however, is an attestation that I personally performed the exam, history, and/or decision-making noted today, and, unless otherwise indicated, the interactions with patient, family, and staff as well as the review of records all occurred today. I also attest that the listed assessment and stated plan reflect my best clinical judgment today based on the combination of historical information, prior notes, and today's exam/ interactions. When time spent is documented, it refers only to time spent today by the signer, or if indicated, combined time spent today by collaborating physician/nurse practitioner. Bekah Cates MD Apr 23, 2017 13:19
[2017-04-23] MEDS ORDERED: ZIPRASIDONE MESYLATE 20 MG VIAL IM PRN (17:15)
[2017-04-23] MEDS ORDERED: GLUCAGON 1 MG/ML VIAL OTHER PRN (18:00)
[2017-04-23] MEDS ORDERED: DEXTROSE 50% IN WATER 50 ML VIAL(D50) IV PUSH PRN (18:00)
--- NOTE | 2017-04-23 18:48 | EKG ---
Date Performed: 04/22/2017 Time Performed: 19:14:42 PTAGE: 89 years EKG: SINUS TACHYCARDIA MARKED LEFT AXIS DEVIATION LOW QRS VOLTAGE IN PRECORDIAL LEADS ANTEROSEPT AL MYOCARDIAL INFARCTION Compared to previous tracing, the marked sinus tachycardia is new. Criteria for left anterior fasicular block are more compelling. Clinical correlation is advised ABNORMAL ECG PREVIOUS TRACING : 10/22/2016 05.51 DOCTOR: Lilly Camacho Interpretating Date/Time 04/23/2017 18:46:03
[2017-04-23] MEDS ORDERED: HEPARIN-D5W 25,000 U/250 ML 250 ML IV PRN (19:15)
[2017-04-23] MEDS ORDERED: HALOPERIDOL LACTATE 5 MG/ML AMP IV PUSH PRN (19:15)
[2017-04-23] MEDS ORDERED: AZITHROMYCIN INJ 500 MG in SODIUM CHLOR 0.9% 250 ML INJ 250 ML IV SCH (20:00)
[2017-04-23] MEDS: cefTRIAXone INJ 1,000 MG in SODIUM CHLORIDE 0.9% INJ 100 ML IV SCH (20:01)
[2017-04-23] MEDS: METOPROLOL TARTRATE 25 MG TAB PO SCH (20:02)
[2017-04-23] MEDS: MIRTAZAPINE 15 MG TAB PO SCH (20:02)
[2017-04-23] MEDS: GABAPENTIN 300 MG CAP PO SCH (20:02)
[2017-04-23] MEDS ORDERED: ATORVASTATIN 80 MG TAB PO SCH (21:00)
[2017-04-23] MEDS ORDERED: METOPROLOL TARTRATE 5 MG/5 ML VIAL IV PUSH ONE (21:00)
[2017-04-23] MEDS: INSULIN NovoLIN REGULAR SUPPLEMENTAL SCALE SQ SCH (21:00)
[2017-04-23] MEDS ORDERED: NITROGLYCERIN 2% OINT 1 GM PACKET TOPICAL PRN (21:15)
[2017-04-23 22:19] LABS: HEMATOCRIT 36.2 % (39.0-51.0); MEAN CELL VOLUME 90.2 FL (80.0-100.0); MEAN CORPUSCULAR HGB CONC 33.3 % (32.0-36.0); MEAN PLATELET VOLUME 12.1 FL (7.0-11.0); PLATELET COUNT 93 TH/MM3 (150-450); RED BLOOD COUNT 4.01 MIL/MM3 (4.50-5.90); RED CELL DISTRIBUTION WIDTH 14.1 % (11.6-17.2); WHITE BLOOD COUNT 17.1 TH/MM3 (4.0-11.0)
[2017-04-23 22:40] LABS: INTERNATIONAL NORMALIZED RATIO 1.1 RATIO
[2017-04-24] VITALS (15 sets, daily range): BP systolic 108–162; BP diastolic 65–90; PULSE 72–110; RESP 22–35; TEMP 97.9–99; O2SAT 90–99
[2017-04-24] MEDS: LABETALOL HCL 100 MG/20 ML VIAL IV PUSH PRN ×2 (00:14→01:35)
[2017-04-24] MEDS: SODIUM CHLOR 0.9% 1000 ML INJ 1,000 ML IV SCH (01:39)
[2017-04-24] MEDS: RESP: ALBUTEROL 2.5 MG/IPRATROPIUM 0.5 MG NEB (SCH) NEB ×6 (03:46→23:23)
[2017-04-24] MEDS: CHLORHEXIDINE GLUCONATE 2 % 1 PACK (2 CLOTHS) TOP SCH (04:00)
[2017-04-24] MEDS: methylPREDNISolone SOD SUCC 40 MG/1 ML VIAL IV PUSH SCH ×3 (05:29→21:51)
[2017-04-24 07:04] LABS: AUTOMATED NEUTROPHIL # 20.1 TH/MM3 (1.8-7.7); HEMATOCRIT 38.2 % (39.0-51.0); HEMOGLOBIN 12.8 GM/DL (13.0-17.0); LYMPH % 3.6 % (9.0-44.0); LYMPHOCYTE # 0.8 TH/MM3 (1.0-4.8); MEAN CELL VOLUME 90.6 FL (80.0-100.0); MEAN CORPUSCULAR HEMOGLOBIN 30.3 PG (27.0-34.0); MEAN CORPUSCULAR HGB CONC 33.5 % (32.0-36.0); MEAN PLATELET VOLUME 12.1 FL (7.0-11.0); MONO % 4.3 % (0.0-8.0); MONOCYTE # 0.9 TH/MM3 (0-0.9); NEUT % 92.1 % (16.0-70.0); PLATELET COUNT 117 TH/MM3 (150-450); RED BLOOD COUNT 4.21 MIL/MM3 (4.50-5.90); RED CELL DISTRIBUTION WIDTH 14.4 % (11.6-17.2); WHITE BLOOD COUNT 21.8 TH/MM3 (4.0-11.0)
[2017-04-24 07:51] LABS: ALBUMIN 2.8 GM/DL (3.4-5.0); ALKALINE PHOSPHATASE 68 U/L (45-117); ALT (GPT) 53 U/L (12-78); AST (GOT) 62 U/L (15-37); BICARBONATE 22.3 MEQ/L (21.0-32.0); BLOOD UREA NITROGEN 22 MG/DL (7-18); CALCIUM 8.5 MG/DL (8.5-10.1); CHLORIDE 109 MEQ/L (98-107); CHOLESTEROL 104 MG/DL (120-200); CHOLESTEROL/ HDL RATIO 1.62 RATIO; CREATININE 0.79 MG/DL (0.60-1.30); GLOMERULAR FILTRATION RATE 92 ML/MIN (>89); GLUCOSE,RANDOM 197 MG/DL (74-106); HDL CHOLESTEROL 64.1 MG/DL (40.0-60.0); LDL CHOLESTEROL 31 MG/DL (0-99); MAGNESIUM 2.1 MG/DL (1.5-2.5); PHOSPHORUS 2.9 MG/DL (2.5-4.9); SODIUM (NA) 140 MEQ/L (136-145); TOTAL BILIRUBIN ADULT 0.6 MG/DL (0.2-1.0); TOTAL PROTEIN 6.2 GM/DL (6.4-8.2); TRIGLYCERIDES 47 MG/DL (42-150)
[2017-04-24 07:54] LABS: TROPONIN I 3.29 NG/ML (0.02-0.05)
[2017-04-24] MEDS: CHLORHEXIDINE 0.12% (ORAL KIT) 15 ML CUP MT SCH ×2 (08:00→20:00)
[2017-04-24] MEDS: metroNIDAZOLE 500 MG INJ 100 ML IV SCH (08:45)
[2017-04-24] MEDS: SODIUM CHLORIDE 0.9% FLUSH 10 ML FLUSH IV FLUSH SCH ×2 (08:45→21:51)
[2017-04-24] MEDS: INSULIN NovoLIN REGULAR SUPPLEMENTAL SCALE SQ SCH ×2 (08:45→12:00)
[2017-04-24] MEDS: FAMOTIDINE 20 MG/2 ML VIAL IV PUSH SCH (08:46)
[2017-04-24] MEDS: FINASTERIDE 5 MG TAB PO SCH (08:46)
[2017-04-24] MEDS: SUCRALFATE 1 GM TAB PO SCH ×4 (08:46→21:51)
[2017-04-24] MEDS: METOPROLOL TARTRATE 25 MG TAB PO SCH (08:46)
[2017-04-24] MEDS: VASOPRESSIN INJ 40 UNITS in DEXTROSE 5% IN WATER 100ML INJ 98 ML IV SCH ×2 (08:47)
[2017-04-24] MEDS: CLOPIDOGREL 75 MG TAB PO SCH (10:43)
--- NOTE | 2017-04-24 11:25 | HHI.HCPN ---
Reason for visit a. To assist with evaluation and management of symptoms including: Dyspnea, agitation b. To assist medical decision maker(s) with: better understanding of current medical conditions; weighing benefits/burdens of medical treatment options; making medical treatment decisions. . Subjective/Interval History INTERVAL NOTE: The patient did receive some Haldol for his agitation last evening. This morning, he is less agitated but still in restraints. He does appear weaker. His white count is up to 21, but he remains afebrile. He denies pain. . Family/friend interactions Discussed with the patient's again by telephone at her Rehab center room. She understands that he has end-stage COPD, pneumonia and sepsis that was quite profound, and a non-STEMI. She understands his prognosis is poor, and she is looking forward to meeting with the hospice admissions nurse this afternoon. . Advance Directives Living Will: Completed, but not made available Health Care Surrogate: Completed, but not made available Advance Directive Specifics Health Care Surrogate(s): The patient's reports that she is the decision maker. . Documented care wishes: The patient has a living will, reportedly with typical language about end-stage conditions. . Significant change in goals: is meeting with the hospice admissions nurse this afternoon. . Objective Vital Signs Date Time Temp Pulse Resp B/P (MAP) Pulse Ox O2 Delivery O2 Flow Rate FiO2 04/24/17 10:00 84 04/24/17 08:47 93 161/77 04/24/17 08:00 92 04/24/17 06:00 80 04/24/17 04:00 85 04/24/17 04:00 98.5 84 28 162/88 (112) 97 04/24/17 03:46 90 Nasal Cannula 2.00 04/24/17 02:00 84 04/24/17 00:00 98.4 75 28 155/90 (111) 97 04/24/17 00:00 77 04/23/17 22:00 98 04/23/17 20:29 96 Nasal Cannula 2.00 04/23/17 20:00 98.6 99 28 115/56 (75) 97 04/23/17 20:00 99 04/23/17 19:00 100 39 125/59 (81) 97 04/23/17 18:00 101 28 137/63 (87) 96 04/23/17 17:00 112 50 175/87 (116) 97 04/23/17 16:26 104 160/89 04/23/17 16:00 98.8 120 49 187/88 (121) 95 04/23/17 15:00 91 04/23/17 15:00 91 32 114/59 (77) 99 04/23/17 14:00 101 50 130/63 (85) 96 04/23/17 13:00 92 43 131/67 (88) 98 04/23/17 12:00 97.9 100 38 138/71 (93) 98 04/23/17 11:45 101 149/80 Intake & Output 04/24/17 04/24/17 06:59 18:59 Intake Total 770 ml Output Total 700 ml Balance 70 ml Intake Oral 320 ml IV Total 450 ml Output Urine Total 700 ml # Bowel Movements 0 Physical Exam CONSTITUTIONAL/GENERAL: This is an adequately nourished patient, agitated, and restraints. TUBES/LINES/DRAINS: Waist and wrist restraints, IV access, nasal oxygen ENT: Hearing grossly normal. Nose without bleeding or purulent drainage. NECK: Trachea midline. Supple, nontender. No palpable thyroid enlargement or nodularity. CARDIOVASCULAR: Regular rate and rhythm without murmurs, gallops, or rubs. No JVD. Peripheral pulses symmetric. RESPIRATORY/CHEST: Symmetric, diminished breath sounds bilateral. A couple mild rhonchi. GASTROINTESTINAL: Abdomen soft, non-tender, nondistended. No hepato-splenomegaly , or palpable masses. No guarding. Bowel sounds present. MUSCULOSKELETAL: Extremities without clubbing, cyanosis, or edema. No joint tenderness or effusion noted. No calf tenderness. No mottling or clubbing. NEUROLOGICAL: Awake and alert, but appears weaker. Moves all 4 extremities; speech is clear. PSYCHIATRIC: Less agitated than yesterday . Diagnostic Tests Laboratory Laboratory Tests Test 04/22/17 18:45 04/22/17 19:15 04/22/17 19:25 04/22/17 22:15 White Blood Count 20.1 TH/MM3 (4.0-11.0) Red Blood Count 4.43 MIL/MM3 (4.50-5.90) Hemoglobin 13.4 GM/DL (13.0-17.0) Hematocrit 40.6 % (39.0-51.0) Mean Corpuscular Volume 91.6 FL (80.0-100.0) Mean Corpuscular Hemoglobin 30.3 PG (27.0-34.0) Mean Corpuscular Hemoglobin Concent 33.1 % (32.0-36.0) Red Cell Distribution Width 14.5 % (11.6-17.2) Platelet Count 146 TH/MM3 (150-450) Mean Platelet Volume 10.7 FL (7.0-11.0) Neutrophils (%) (Auto) 74.1 % (16.0-70.0) Lymphocytes (%) (Auto) 21.0 % (9.0-44.0) Monocytes (%) (Auto) 4.3 % (0.0-8.0) Eosinophils (%) (Auto) 0.4 % (0.0-4.0) Basophils (%) (Auto) 0.2 % (0.0-2.0) Neutrophils # (Auto) 15.0 TH/MM3 (1.8-7.7) Lymphocytes # (Auto) 4.2 TH/MM3 (1.0-4.8) Monocytes # (Auto) 0.9 TH/MM3 (0-0.9) Eosinophils # (Auto) 0.1 TH/MM3 (0-0.4) Basophils # (Auto) 0.0 TH/MM3 (0-0.2) CBC Comment DIFF FINAL Differential Comment Prothrombin Time 10.6 SEC (9.8-11.6) Prothromb Time International Ratio 1.0 RATIO Activated Partial Thromboplast Time 22.5 SEC (24.3-30.1) Blood Urea Nitrogen 15 MG/DL (7-18) Creatinine 0.88 MG/DL (0.60-1.30) Random Glucose 253 MG/DL (74-106) Total Protein 6.6 GM/DL (6.4-8.2) Albumin 3.4 GM/DL (3.4-5.0) Calcium Level 8.4 MG/DL (8.5-10.1) Alkaline Phosphatase 76 U/L (45-117) Aspartate Amino Transf (AST/SGOT) 34 U/L (15-37) Alanine Aminotransferase (ALT/SGPT) 33 U/L (12-78) Total Bilirubin 0.5 MG/DL (0.2-1.0) Sodium Level 139 MEQ/L (136-145) Potassium Level 4.3 MEQ/L (3.5-5.1) Chloride Level 102 MEQ/L (98-107) Carbon Dioxide Level 28.6 MEQ/L (21.0-32.0) Anion Gap 8 MEQ/L (5-15) Estimat Glomerular Filtration Rate 82 ML/MIN (>89) Total Creatine Kinase 86 U/L (39-308) Troponin I 0.13 NG/ML (0.02-0.05) B-Type Natriuretic Peptide 192 PG/ML (0-100) Lactic Acid Level 3.9 mmol/L (0.4-2.0) 2.7 mmol/L (0.4-2.0) Urine Color LIGHT-YELLOW (YELLW/STRAW) Urine Turbidity CLEAR (CLEAR) Urine pH 7.0 (5.0-8.5) Urine Specific [place] 1.012 (1.002-1.035) Urine Protein 30 mg/dL (NEG-TRACE) Urine Glucose (UA) NEG mg/dL (NEG) Urine Ketones NEG mg/dL (NEG) Urine Occult Blood NEG (NEG) Urine Nitrite NEG (NEG) Urine Bilirubin NEG (NEG) Urine Urobilinogen LESS THAN 2.0 MG/DL (LESS Urine Leukocyte Esterase NEG (NEG) Urine RBC 3 /hpf (0-3) Urine WBC 1 /hpf (0-5) Urine Squamous Epithelial Cells <1 /hpf (0-5) Microscopic Urinalysis Comment CULT NOT INDICATED Test 04/23/17 05:11 04/23/17 06:05 04/23/17 11:12 04/23/17 17:20 White Blood Count 14.3 TH/MM3 (4.0-11.0) Red Blood Count 3.95 MIL/MM3 (4.50-5.90) Hemoglobin 11.8 GM/DL (13.0-17.0) Hematocrit 35.7 % (39.0-51.0) Mean Corpuscular Volume 90.4 FL (80.0-100.0) Mean Corpuscular Hemoglobin 29.8 PG (27.0-34.0) Mean Corpuscular Hemoglobin Concent 32.9 % (32.0-36.0) Red Cell Distribution Width 14.3 % (11.6-17.2) Platelet Count 91 TH/MM3 (150-450) Mean Platelet Volume 11.2 FL (7.0-11.0) Neutrophils (%) (Auto) 93.2 % (16.0-70.0) Lymphocytes (%) (Auto) 3.7 % (9.0-44.0) Monocytes (%) (Auto) 3.1 % (0.0-8.0) Eosinophils (%) (Auto) 0.0 % (0.0-4.0) Basophils (%) (Auto) 0.0 % (0.0-2.0) Neutrophils # (Auto) 13.4 TH/MM3 (1.8-7.7) Lymphocytes # (Auto) 0.5 TH/MM3 (1.0-4.8) Monocytes # (Auto) 0.5 TH/MM3 (0-0.9) Eosinophils # (Auto) 0.0 TH/MM3 (0-0.4) Basophils # (Auto) 0.0 TH/MM3 (0-0.2) CBC Comment AUTO DIFF Differential Comment AUTO DIFF CONFIRMED Blood Urea Nitrogen 18 MG/DL (7-18) Creatinine 1.01 MG/DL (0.60-1.30) Random Glucose 237 MG/DL (74-106) Calcium Level 8.1 MG/DL (8.5-10.1) Sodium Level 141 MEQ/L (136-145) Potassium Level 4.4 MEQ/L (3.5-5.1) Chloride Level 109 MEQ/L (98-107) Carbon Dioxide Level 21.3 MEQ/L (21.0-32.0) Anion Gap 11 MEQ/L (5-15) Estimat Glomerular Filtration Rate 70 ML/MIN (>89) Total Creatine Kinase 130 U/L (39-308) 170 U/L (39-308) Troponin I 1.73 NG/ML (0.02-0.05) 1.56 NG/ML (0.02-0.05) 2.52 NG/ML (0.02-0.05) Nasal Screen MRSA (PCR) MRSA NOT DETECTED (NOT Test 04/23/17 21:18 04/24/17 05:41 White Blood Count 17.1 TH/MM3 (4.0-11.0) 21.8 TH/MM3 (4.0-11.0) Red Blood Count 4.01 MIL/MM3 (4.50-5.90) 4.21 MIL/MM3 (4.50-5.90) Hemoglobin 12.0 GM/DL (13.0-17.0) 12.8 GM/DL (13.0-17.0) Hematocrit 36.2 % (39.0-51.0) 38.2 % (39.0-51.0) Mean Corpuscular Volume 90.2 FL (80.0-100.0) 90.6 FL (80.0-100.0) Mean Corpuscular Hemoglobin 30.0 PG (27.0-34.0) 30.3 PG (27.0-34.0) Mean Corpuscular Hemoglobin Concent 33.3 % (32.0-36.0) 33.5 % (32.0-36.0) Red Cell Distribution Width 14.1 % (11.6-17.2) 14.4 % (11.6-17.2) Platelet Count 93 TH/MM3 (150-450) 117 TH/MM3 (150-450) Mean Platelet Volume 12.1 FL (7.0-11.0) 12.1 FL (7.0-11.0) Prothrombin Time 11.0 SEC (9.8-11.6) Prothromb Time International Ratio 1.1 RATIO Activated Partial Thromboplast Time 30.9 SEC (24.3-30.1) 44.6 SEC (24.3-30.1) Neutrophils (%) (Auto) 92.1 % (16.0-70.0) Lymphocytes (%) (Auto) 3.6 % (9.0-44.0) Monocytes (%) (Auto) 4.3 % (0.0-8.0) Eosinophils (%) (Auto) 0.0 % (0.0-4.0) Basophils (%) (Auto) 0.0 % (0.0-2.0) Neutrophils # (Auto) 20.1 TH/MM3 (1.8-7.7) Lymphocytes # (Auto) 0.8 TH/MM3 (1.0-4.8) Monocytes # (Auto) 0.9 TH/MM3 (0-0.9) Eosinophils # (Auto) 0.0 TH/MM3 (0-0.4) Basophils # (Auto) 0.0 TH/MM3 (0-0.2) CBC Comment DIFF FINAL Differential Comment Blood Urea Nitrogen 22 MG/DL (7-18) Creatinine 0.79 MG/DL (0.60-1.30) Random Glucose 197 MG/DL (74-106) Total Protein 6.2 GM/DL (6.4-8.2) Albumin 2.8 GM/DL (3.4-5.0) Calcium Level 8.5 MG/DL (8.5-10.1) Phosphorus Level 2.9 MG/DL (2.5-4.9) Magnesium Level 2.1 MG/DL (1.5-2.5) Alkaline Phosphatase 68 U/L (45-117) Aspartate Amino Transf (AST/SGOT) 62 U/L (15-37) Alanine Aminotransferase (ALT/SGPT) 53 U/L (12-78) Total Bilirubin 0.6 MG/DL (0.2-1.0) Sodium Level 140 MEQ/L (136-145) Potassium Level 4.8 MEQ/L (3.5-5.1) Chloride Level 109 MEQ/L (98-107) Carbon Dioxide Level 22.3 MEQ/L (21.0-32.0) Anion Gap 9 MEQ/L (5-15) Estimat Glomerular Filtration Rate 92 ML/MIN (>89) Troponin I 3.29 NG/ML (0.02-0.05) Triglycerides Level 47 MG/DL (42-150) Cholesterol Level 104 MG/DL (120-200) LDL Cholesterol 31 MG/DL (0-99) HDL Cholesterol 64.1 MG/DL (40.0-60.0) Cholesterol/HDL Ratio 1.62 RATIO Thyroid Stimulating Hormone 3rd Gen 1.860 uIU/ML (0.358-3.740) Result Diagram: 04/24/17 0541 04/24/17 0541 Microbiology Microbiology Date/Time Source Procedure Growth Status 04/22/17 20:35 Blood Line Aerobic Blood Culture - Preliminary NO GROWTH IN 2 DAYS Resulted 04/22/17 20:35 Blood Line Anaerobic Blood Culture - Preliminary NO GROWTH IN 2 DAYS Resulted 04/22/17 20:30 Blood Line Aerobic Blood Culture - Preliminary NO GROWTH IN 2 DAYS Resulted 04/22/17 20:30 Blood Line Anaerobic Blood Culture - Preliminary NO GROWTH IN 2 DAYS Resulted Imaging Last Impressions Abdomen/Pelvis CT 04/22/17 0938 Signed Impressions: Service Date/Time: Saturday, April 22, 2017 21:26 - CONCLUSION: 1. Partial consolidative infiltrate in the posterior right lower lung, a new finding from 04/10/17. 2. Mild constipation without dilated loops of small bowel. 3. 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 Tha Martin MD Chest X-Ray 04/22/17 0000 Signed Impressions: Service Date/Time: Saturday, April 22, 2017 18:49 - CONCLUSION: The lungs are clear. Tha Martin MD Chest CT 04/22/17 0000 Signed Impressions: Service Date/Time: Saturday, April 22, 2017 21:26 - CONCLUSION: 1. Unusual pattern of partially consolidative infiltrate in the posterior right lung with sharp linear demarcation between normal and abnormal lung which does not conform to a segmental anatomy. 2. Tiny bilateral pleural effusions. Tha Martin MD Assessment and Plan Disease Oriented Problem List: (1) Right lower lobe pneumonia, sepsis (2) Septic shock (3) Non-ST elevation [place] (4) Respiratory failure Comment: Resolved with treatment overnight (5) Dementia (6) Mesenteric artery stenosis, angina (7) TIA 2010 (8) CAD, stenting 2 (9) Peripheral vascular disease (10) COPD on home oxygen (11) Hypertension (12) Hyperlipidemia (13) Bvc-uhioycj-ozubmvgrz diabetes (14) BPH (15) Sleep apnea, CPAP use (16) Skin cancer excisions Symptom Scale: (1) Agitation 0-10 Scale: Unable to quantify (2) Restlessness 0-10 Scale: Unable to quantify Pertinent Non-Medical Issues Psychosocial: for 63 years, 1 daughter living, 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 Spiritual: The patient is not spiritual or zoroastrian Legal: The patient lacks capacity for decision making; the patient's is his healthcare decision maker proxy/surrogate. Ethical issues impacting care: None . Important Contacts Patient's : Anca Saravia The home phone is [phone] BUT SHE IS CURRENTLY AT [facility] after hip surgery, and her DIRECT LINE there is [phone]. Daughter: Jennifer [phone] . Prognosis With moderate dementia, moderately severe oxygen dependent COPD, and now the third episode of pneumonia within the past 1.5 years, the patient's overall prognosis is poor. He is appropriate for hospice services if the goals remain comfort oriented, and the patient's has requested a consultation with the hospitalist admitting nurse. . Code Status: No Code Plan * DO NOT RESUSCITATE, per request of 04/23/17 * GOALS: The patient's reports that she and the patient had discussed end- of-life goals and wishes prior to him getting dementia, and that it was very clear to him then -- and is very clear to her now -- that he would not want to be resuscitated or placed on life support machines. She requests that we continue DNR status, and she is planning on meeting with the hospice admitting nurse this afternoon. * DECISION-MAKING: The patient lacks capacity for decision making; the patient' s is his healthcare decision maker proxy/surrogate. * Patient's : Anca Saravia. The home phone is [phone] BUT SHE IS CURRENTLY AT [facility] after hip surgery, and her DIRECT LINE there is [phone]. * SYMPTOMS: The patient does not seem to be in pain, but he has had more agitation as he has become more alert, and he now is in restraints to keep him safe from falls and injury. * Palliative Care will continue to follow the patient during this hospitalization. . Time Spent Total Floor Time (mins): 38 Face to Face Time (mins): 12 >50% Counseling/Coord of Care: Yes Attestation To help prompt me to consider important information that might be impacting today's encounter and assessment, information from prior notes written by myself or my colleagues may have been "brought forward" into today's note. My signature on this note, however, is an attestation that I personally performed the exam, history, and/or decision-making noted today, and, unless otherwise indicated, the interactions with patient, family, and staff as well as the review of records all occurred today. I also attest that the listed assessment and stated plan reflect my best clinical judgment today based on the combination of historical information, prior notes, and today's exam/ interactions. When time spent is documented, it refers only to time spent today by the signer, or if indicated, combined time spent today by collaborating physician/nurse practitioner. Bekah Cates MD Apr 24, 2017 11:25
--- NOTE | 2017-04-24 12:30 | HHI.CCPN ---
Subjective Remarks/Hospital Course 89-year-old male with a medical history significant for 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 fib, dementia who was brought to the ER by EMS for worsening cough and shortness of breath which started this afternoon. Patient brought up brownish phlegm at home per daughter. He has also been complaining of abdominal cramping pain over the last few days off and on. He was in fact evaluated in the ER at [place] on April 10 underwent imaging studies including a CAT scan which was unremarkable and was discharged home at that time. Today on arrival patient was short of breath with a cough and chills and left-sided abdominal pain. His O2 sats 88% initially on nasal cannula and he was placed on BiPAP. On arrival his systolic blood pressure was 250 heart rate 80s. Subsequently he had a drop in his blood pressure to the 90s systolic range. He received 2 L normal saline bolus and underwent imaging studies which revealed a right lower lobe infiltrate on CAT scan. He was initiated on empiric antibiotics with Rocephin and Zithromax as well as received Solu- Medrol. He did have a leukocytosis with a lactic acid of 3.[address] abdomen pelvis shows significant arteriosclerosis and he has a history of mesenteric angina. He did have a borderline elevation of his troponin. Patient was doing better with BiPAP on board. Critical care accepted patient for admission to the ICU. When I evaluated him in the ER he was on BiPAP with full facemask with O2 sats 100%. History was obtained by discussion with ER staff as well as patient's daughter at bedside. Reportedly patient's takes care of him however she was in rehabilitation following hip surgery. Per patient's daughter she does not think that his would want aggressive care however she will clarify with her and get back to us by the morning. She does not want any invasive procedures including central lines at this point. Patient will remain full CODE STATUS to a side effect vacation is obtained from patient's . Patient unable to give details of history due to significant dementia. 04/23: Currently off BiPAP and on room air. Weaning off vasopressors. Patients can concern that the weather is getting cooler. Appears to be back at baseline neurologically. Subjective 04/24: Able. Currently on 2 L nasal cannula. Troponin trending up or currently 3.2. On heparin drip and clopidogrel 75 mg daily. Complains of shortness of breath and chest pain. Digital Asset Manager has been consulted. Echocardiogram still pending. to discuss with hospice this afternoon possible transition of care. Objective Vital Signs Date Time Temp Pulse Resp B/P (MAP) Pulse Ox O2 Delivery O2 Flow Rate FiO2 04/24/17 10:00 84 04/24/17 08:47 161/77 04/24/17 04:00 98.5 28 97 04/24/17 03:46 Nasal Cannula 2.00 04/23/17 03:29 30 Intake and Output 04/24/17 04/24/17 04/25/17 08:00 16:00 00:00 Intake Total 420 ml Output Total 700 ml Balance -280 ml Result Diagram: 04/24/17 0541 04/24/17 0541 Other Results Microbiology Date/Time Source Procedure Growth Status 04/22/17 20:35 Blood Line Aerobic Blood Culture - Preliminary NO GROWTH IN 2 DAYS Resulted 04/22/17 20:35 Blood Line Anaerobic Blood Culture - Preliminary NO GROWTH IN 2 DAYS Resulted Imaging Last Impressions Abdomen/Pelvis CT 04/22/17 1836 Signed Impressions: Service Date/Time: Saturday, April 22, 2017 21:26 - CONCLUSION: 1. Partial consolidative infiltrate in the posterior right lower lung, a new finding from 04/10/17. 2. Mild constipation without dilated loops of small bowel. 3. 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 Tha Martin MD Chest X-Ray 04/22/17 0000 Signed Impressions: Service Date/Time: Saturday, April 22, 2017 18:49 - CONCLUSION: The lungs are clear. Tha Martin MD Chest CT 04/22/17 0000 Signed Impressions: Service Date/Time: Saturday, April 22, 2017 21:26 - CONCLUSION: 1. Unusual pattern of partially consolidative infiltrate in the posterior right lung with sharp linear demarcation between normal and abnormal lung which does not conform to a segmental anatomy. 2. Tiny bilateral pleural effusions. Tha Martin MD Objective Remarks GENERAL: 89-year-old male currently resting in bed in room air in no acute distress SKIN: Focused skin assessment warm/dry. Multiple upper extremity ecchymoses noted HEAD normocephalic/atraumatic EYES: No scleral icterus. No injection or drainage. NECK: Supple, trachea midline. No JVD or lymphadenopathy. CARDIOVASCULAR: Regular rate and rhythm. S1, S2 no S4. Without murmurs, gallops, or rubs. RESPIRATORY: Few crackles scattered appreciated in the bases bilaterally. No wheezing GASTROINTESTINAL: Abdomen soft, nondistended, currently nontender to palpation. Hypoactive bowel sounds are appreciated MUSCULOSKELETAL: No significant peripheral edema. NEURO: Cranial nerves II through XII appear to be grossly intact. Moves all 4 extremities spontaneously to command. A/P Assessment and Plan Neuro/Psych: Dementia disorder NOS History of recurrent TIA Depression disorder Currently on acetaminophen 650 mg p.o. every 4 hours as needed fever/pain 1 through 10 Continue mirtazapine 15 mg at night/home medication Follow neuro status. On as needed haloperidol 2 mg IV every 6 hours and ziprasidone 10 mg IV every 12 hours 3 days maximum for agitation Cardiovascular: Atrial fibrillation currently rate controlled ASCVD Dyslipidemia History of congestive heart Coronary artery disease -involving left main, LAD, circumflex, RCA in 2011 cardiac catheterization Elevated troponin Restart metoprolol tartrate 25 mg p.o. twice daily/home medication increased to 50 mg p.o. twice daily Holding isosorbide mononitrate 90 g p.o.mg daily. Resume with Isordil dinitrate 20 mg 3 times daily Continue clopidogrel 75 mg p.o. daily Continue atorvastatin 80 mg p.o. daily for dyslipidemia Echocardiogram 2015 revealed EF 55-60%. Moderate TR. No regional wall motion abnormality. Repeat pending Consult -his regular winter sports manager for assistance in management. Heparin drip Pulmonary: Acute respiratory failure secondary to aspiration COPD Nasal cannula 2 L home judgment Nasal cannula to maintain saturations greater than equal to 92% Incentive spirometry while awake Albuterol/ipratropium aerosols every 6 hours with albuterol aerosols every 2 hours as needed dyspnea Budesonide 0.5/2 1 inhalation twice daily Methylprednisolone succinate 40 mg IV every 8 hours GI/liver: Abdominal pain NOS Constipation History of mesenteric angina History of colonic polyps Gastroesophageal reflux disease Hypoalbuminemia Nothing by mouth for now till improvement in respiratory status. Concern regarding aspiration speech therapy will evaluate and treat today. Advance diet as tolerated Renal/: BPH IV hydration, strict intake output, monitor and replete electro lites, follow BUN/creatinine. Manzano catheterization for accurate intake output. ID: Follow-up blood cultures. Empiric antibiotic coverage with IV ceftriaxone/metronidazole/azithromycin awaiting flu swab for influenza A and B. Suspect aspiration pneumonia. Endocrine: History of diabetes mellitus Watch for hyperglycemia, SSI for glycemic control if needed. With Novulog Heme: Leukocytosis Normocytic anemia Thrombocytopenia History of head and neck cancer Follow CBC. Monitor trends On heparin drip FEN: Replace electrolytes as clinically indicated MSK: Osteoarthritis PT/OT evaluate and treat Access -Utilize peripheral IV. Central line if indicated Prophylaxis -GI -famotidine -DVT -SCD/heparin subcu Level 2 follow-up Wagner Tirado MD Apr 24, 2017 12:30
--- NOTE | 2017-04-24 13:53 | RADRPT ---
EXAM DATE/TIME: 04/24/2017 12:58 [facility] COMPARISON: CHEST SINGLE AP, April 22, 2017, 18:49. INDICATIONS : Aspiration pneumonia MEDICAL HISTORY : Cardiovascular disease. Hypertension Gastroesophageal reflux disease. diabetes, skin cancer, copd SURGICAL HISTORY : carotid stent ENCOUNTER: Initial ACUITY: 2 days PAIN SCORE: Non-responsive. LOCATION: Bilateral cranial FINDINGS: There are advanced COPD changes. There is right basilar effusion and consolidation. This has worsened when compared to previous. Study would suggest right basilar pneumonia. Aspiration would be a consid eration. There is minimal effusion at the left base. The heart is normal in size. The mediastinal contour is within normal limits. The visualized bony structures are grossly intact. CONCLUSION: 1. Right basilar effusion and infiltrate concerning for basilar pneumonia. Wagner John MD on April 24, 2017 at 13:50 Board Certified Radiologist. This report was verified electronically.
[2017-04-24] MEDS: ISOSORBIDE DINITRATE 20 MG TAB PO SCH ×2 (14:02→21:51)
[2017-04-24] MEDS: metroNIDAZOLE 500 MG TAB PO SCH ×2 (14:03→22:01)
--- NOTE | 2017-04-24 18:32 | ECHRPT ---
Indication: Essential (primary) hypertension CONCLUSIONS The left ventricular systolic function is severely reduced with an estimated ejection fraction of 30 %. Wall thickness is measured at the upper limits of normal. Normal left ventricular size. There is moderate tricuspid valve regurgitation. The estimated pulmonary arterial pressure is 47 mmHg. BP: 119 / 67 HR: 78 Rhythm: MEASUREMENTS (Male / Female) Normal Values Technical Quality: 2D ECHO LV Diastolic Diameter PLAX 4.7 cm 4.2 - 5.9 / 3.9 - 5.3 cm LV Systolic Diameter PLAX 4.1 cm IVS Diastolic Thickness 1.0 cm 0.6 - 1.0 / 0.6 - 0.9 cm LVPW Diastolic Thickness 1.0 cm 0.6 - 1.0 / 0.6 - 0.9 cm LV Relative Wall Thickness 0.4 LVOT Diameter 2.0 cm M-MODE Aortic Root Diameter MM 2.3 cm LA Systolic Diameter MM 3.3 cm LA Ao Ratio MM 1.4 AV Cusp Separation MM 1.8 cm DOPPLER AV Peak Velocity 134.0 cm/s AV Peak Gradient 7.2 mmHg LVOT Peak Velocity 61.7 cm/s LVOT Peak Gradient 1.5 mmHg AV Area Cont Eq pk 1.4 cm LV E' Lateral Velocity 5.2 cm/s LV E' Septal Velocity 4.6 cm/s TR Peak Velocity 305.0 cm/s TR Peak Gradient 37.2 mmHg Right Atrial Pressure 10.0 mmHg Pulmonary Artery Systolic Pressu 47.2 mmHg Right Ventricular Systolic Press 47.2 mmHg PV Peak Velocity 109.0 cm/s PV Peak Gradient 4.8 mmHg FINDINGS LEFT VENTRICLE The left ventricular systolic function is severely reduced with an estimated ejection fraction of 30 %. Wall thickness is measured at the upper limits of normal. Normal left ventricular size. RIGHT VENTRICLE Normal right ventricular size and systolic function. LEFT ATRIUM The left atrial size is normal. RIGHT ATRIUM The right atrial size is normal. ATRIAL SEPTUM Normal atrial septal thickness without atrial level shunting by limited color doppler interrogation. AORTA The aortic root and proximal ascending aorta are normal in size on limited imaging. MITRAL VALVE Structurally normal mitral valve. No mitral valve stenosis or regurgitation. AORTIC VALVE Trileaflet aortic valve. No aortic valve stenosis or regurgitation. TRICUSPID VALVE There is moderate tricuspid valve regurgitation. The estimated pulmonary arterial pressure is 47.2 mmHg. PULMONARY VALVE No pulmonary valve regurgitation or stenosis. VESSELS The inferior vena cava is normal in size. PERICARDIUM No pericardial effusion. Otakar Quadrat MD, FACC (Electronically Signed) Final Date:24 April 2017 18:31
--- NOTE | 2017-04-24 20:35 | EKG ---
Date Performed: 04/23/2017 Time Performed: 11:13:30 PTAGE: 89 years EKG: Sinus rhythm INDETERMINATE AXIS INFERIOR MYOCARDIAL INFARCTION , PROBABLY OLD ABNORMAL ECG PREVIOUS TRACING : 04/22/2017 19.14 Since the previous tracing, indeterminate axis and inferior Q waves now present DOCTOR: Karly Bennett Interpretating Date/Time 04/24/2017 20:34:33
[2017-04-24] MEDS ORDERED: FAMOTIDINE 20 MG TAB PO SCH (21:00)
[2017-04-24] MEDS: cefTRIAXone INJ 1,000 MG in SODIUM CHLORIDE 0.9% INJ 100 ML IV SCH (21:50)
[2017-04-24] MEDS: DOCUSATE SODIUM 50 MG/SENNA 8.6 MG TAB PO SCH (21:51)
[2017-04-24] MEDS: GABAPENTIN 300 MG CAP PO SCH (21:51)
[2017-04-24] MEDS: MIRTAZAPINE 15 MG TAB PO SCH (22:01)
[2017-04-24] MEDS: METOPROLOL TARTRATE 50 MG TAB PO SCH (22:01)
[2017-04-25] VITALS (7 sets, daily range): BP systolic 124–134; BP diastolic 61–67; PULSE 85–109; RESP 20; TEMP 98.2–99.4; O2SAT 92–100
[2017-04-25] MEDS: RESP: ALBUTEROL 2.5 MG/IPRATROPIUM 0.5 MG NEB (SCH) NEB ×3 (03:25→11:15)
[2017-04-25] MEDS: CHLORHEXIDINE GLUCONATE 2 % 1 PACK (2 CLOTHS) TOP SCH (04:00)
[2017-04-25] MEDS: methylPREDNISolone SOD SUCC 40 MG/1 ML VIAL IV PUSH SCH (05:00)
[2017-04-25] MEDS: metroNIDAZOLE 500 MG TAB PO SCH (05:00)
[2017-04-25] MEDS: ISOSORBIDE DINITRATE 20 MG TAB PO SCH (05:00)
--- NOTE | 2017-04-25 05:15 | RADRPT ---
EXAM DATE/TIME: 04/25/2017 03:38 [facility] COMPARISON: CHEST SINGLE AP, April 24, 2017, 12:58. INDICATIONS : Shortness of breath. MEDICAL HISTORY : Chronic obstructive pulmonary disease. Cardiovascular disease. Hypertension. Gastroesophageal r eflux disease.Diabetes Skin cancer SURGICAL HISTORY : Carotid stent. ENCOUNTER: Subsequent ACUITY: 4 - 6 days PAIN SCORE: Non-responsive. LOCATION: Bilateral chest FINDINGS: A single portable frontal view of the chest shows a right pleural effusion and right lower lobe infil trate which are stable. A left pleural effusion and left lower lobe infiltrate are new. Lungs are hyp erexpanded. Heart is normal in size. CONCLUSION: New effusion and left lower lobe infiltrate with stable right effusion and right lower lobe infiltrat e. Tha Bernal Jr., MD on April 25, 2017 at 5:13 Board Certified Radiologist. This report was verified electronically.
[2017-04-25] MEDS: DOCUSATE SODIUM 50 MG/SENNA 8.6 MG TAB PO SCH (09:00)
[2017-04-25] MEDS ORDERED: AZITHROMYCIN 250 MG TAB PO SCH (09:00)
[2017-04-25] MEDS: CLOPIDOGREL 75 MG TAB PO SCH (09:00)
[2017-04-25] MEDS: FINASTERIDE 5 MG TAB PO SCH (09:00)
[2017-04-25] MEDS: SUCRALFATE 1 GM TAB PO SCH (09:00)
[2017-04-25] MEDS: METOPROLOL TARTRATE 50 MG TAB PO SCH (09:00)
--- NOTE | 2017-04-25 09:53 | HHI.HCPN ---
Reason for visit a. To assist with evaluation and management of symptoms including: Dyspnea, agitation b. To assist medical decision maker(s) with: better understanding of current medical conditions; weighing benefits/burdens of medical treatment options; making medical treatment decisions. . Subjective/Interval History INTERVAL NOTE: The patient continues to appear weaker to me. He is now on O2 via facemask. Although he remains afebrile, his white count was 21.8 yesterday, and the chest x-ray this morning shows new infiltrate and new effusion on the left. The patient is lethargic, mumbles. . Family/friend interactions Tried to call the patient's again at her Rehab center but there was no answer. I then called the patient's daughter Jennifer and updated her on how the patient is declining, and my thought that at his advanced age with worsening pneumonia, new [place], and developing respiratory failure, that he may continue to decline rapidly and in the upcoming days. Jennifer was going to go to the rehab center and let her mother know. In the meantime, there is a plan for transition to hospice today. . Advance Directives Living Will: Completed, but not made available Health Care Surrogate: Completed, but not made available Advance Directive Specifics Health Care Surrogate(s): The patient's reports that she is the decision maker. . Documented care wishes: The patient has a living will, reportedly with typical language about end-stage conditions. . Significant change in goals: Transitioning to hospice today . Objective Vital Signs Date Time Temp Pulse Resp B/P (MAP) Pulse Ox O2 Delivery O2 Flow Rate FiO2 04/25/17 08:49 Nasal Cannula 3.00 04/25/17 06:00 104 04/25/17 04:00 98.2 103 20 124/67 (86) 100 04/25/17 04:00 105 04/25/17 04:00 Nasal Cannula 4.00 04/25/17 03:28 92 Nasal Cannula 3.00 04/25/17 02:00 105 04/25/17 00:00 Nasal Cannula 4.00 04/25/17 00:00 98.2 109 20 134/61 (85) 100 04/25/17 00:00 109 04/24/17 23:23 94 Nasal Cannula 3.00 04/24/17 22:00 110 04/24/17 20:27 93 Nasal Cannula 3.00 04/24/17 20:00 98.3 108 22 139/84 (102) 94 04/24/17 20:00 107 04/24/17 20:00 Nasal Cannula 4.00 04/24/17 18:00 93 04/24/17 16:00 99.0 84 31 108/66 (80) 97 04/24/17 16:00 84 04/24/17 14:00 72 04/24/17 12:00 97.9 90 35 135/65 (88) 93 04/24/17 12:00 90 04/24/17 10:00 84 Intake & Output 04/25/17 04/25/17 07:00 19:00 Intake Total 300 ml Output Total 350 ml Balance -50 ml Intake Oral 100 ml IV Total 200 ml Output Urine Total 350 ml Stool Total 0 ml Physical Exam CONSTITUTIONAL/GENERAL: This is a weak, elderly patient, lethargic, and restraints. TUBES/LINES/DRAINS: Waist and wrist restraints, IV access, nasal oxygen ENT: Hearing grossly normal. Nose without bleeding or purulent drainage. NECK: Trachea midline. Supple, nontender. No palpable thyroid enlargement or nodularity. CARDIOVASCULAR: Regular rate and rhythm without murmurs, gallops, or rubs. No JVD. Peripheral pulses symmetric. RESPIRATORY/CHEST: Symmetric, diminished breath sounds bilateral. Scattered rhonchi and a couple wheezes GASTROINTESTINAL: Abdomen soft, non-tender, nondistended. No hepato-splenomegaly , or palpable masses. No guarding. Bowel sounds present. MUSCULOSKELETAL: Extremities without clubbing, cyanosis, or edema. No joint tenderness or effusion noted. No calf tenderness. No mottling or clubbing. NEUROLOGICAL: Lethargic, mumbling, moves all 4 extremities at times PSYCHIATRIC: Not obviously agitated now . Diagnostic Tests Laboratory Laboratory Tests Test 04/22/17 18:45 04/22/17 19:15 04/22/17 19:25 04/22/17 22:15 White Blood Count 20.1 TH/MM3 (4.0-11.0) Red Blood Count 4.43 MIL/MM3 (4.50-5.90) Hemoglobin 13.4 GM/DL (13.0-17.0) Hematocrit 40.6 % (39.0-51.0) Mean Corpuscular Volume 91.6 FL (80.0-100.0) Mean Corpuscular Hemoglobin 30.3 PG (27.0-34.0) Mean Corpuscular Hemoglobin Concent 33.1 % (32.0-36.0) Red Cell Distribution Width 14.5 % (11.6-17.2) Platelet Count 146 TH/MM3 (150-450) Mean Platelet Volume 10.7 FL (7.0-11.0) Neutrophils (%) (Auto) 74.1 % (16.0-70.0) Lymphocytes (%) (Auto) 21.0 % (9.0-44.0) Monocytes (%) (Auto) 4.3 % (0.0-8.0) Eosinophils (%) (Auto) 0.4 % (0.0-4.0) Basophils (%) (Auto) 0.2 % (0.0-2.0) Neutrophils # (Auto) 15.0 TH/MM3 (1.8-7.7) Lymphocytes # (Auto) 4.2 TH/MM3 (1.0-4.8) Monocytes # (Auto) 0.9 TH/MM3 (0-0.9) Eosinophils # (Auto) 0.1 TH/MM3 (0-0.4) Basophils # (Auto) 0.0 TH/MM3 (0-0.2) CBC Comment DIFF FINAL Differential Comment Prothrombin Time 10.6 SEC (9.8-11.6) Prothromb Time International Ratio 1.0 RATIO Activated Partial Thromboplast Time 22.5 SEC (24.3-30.1) Blood Urea Nitrogen 15 MG/DL (7-18) Creatinine 0.88 MG/DL (0.60-1.30) Random Glucose 253 MG/DL (74-106) Total Protein 6.6 GM/DL (6.4-8.2) Albumin 3.4 GM/DL (3.4-5.0) Calcium Level 8.4 MG/DL (8.5-10.1) Alkaline Phosphatase 76 U/L (45-117) Aspartate Amino Transf (AST/SGOT) 34 U/L (15-37) Alanine Aminotransferase (ALT/SGPT) 33 U/L (12-78) Total Bilirubin 0.5 MG/DL (0.2-1.0) Sodium Level 139 MEQ/L (136-145) Potassium Level 4.3 MEQ/L (3.5-5.1) Chloride Level 102 MEQ/L (98-107) Carbon Dioxide Level 28.6 MEQ/L (21.0-32.0) Anion Gap 8 MEQ/L (5-15) Estimat Glomerular Filtration Rate 82 ML/MIN (>89) Total Creatine Kinase 86 U/L (39-308) Troponin I 0.13 NG/ML (0.02-0.05) B-Type Natriuretic Peptide 192 PG/ML (0-100) Lactic Acid Level 3.9 mmol/L (0.4-2.0) 2.7 mmol/L (0.4-2.0) Urine Color LIGHT-YELLOW (YELLW/STRAW) Urine Turbidity CLEAR (CLEAR) Urine pH 7.0 (5.0-8.5) Urine Specific [place] 1.012 (1.002-1.035) Urine Protein 30 mg/dL (NEG-TRACE) Urine Glucose (UA) NEG mg/dL (NEG) Urine Ketones NEG mg/dL (NEG) Urine Occult Blood NEG (NEG) Urine Nitrite NEG (NEG) Urine Bilirubin NEG (NEG) Urine Urobilinogen LESS THAN 2.0 MG/DL (LESS Urine Leukocyte Esterase NEG (NEG) Urine RBC 3 /hpf (0-3) Urine WBC 1 /hpf (0-5) Urine Squamous Epithelial Cells <1 /hpf (0-5) Microscopic Urinalysis Comment CULT NOT INDICATED Test 04/23/17 05:11 04/23/17 06:05 04/23/17 11:12 04/23/17 17:20 White Blood Count 14.3 TH/MM3 (4.0-11.0) Red Blood Count 3.95 MIL/MM3 (4.50-5.90) Hemoglobin 11.8 GM/DL (13.0-17.0) Hematocrit 35.7 % (39.0-51.0) Mean Corpuscular Volume 90.4 FL (80.0-100.0) Mean Corpuscular Hemoglobin 29.8 PG (27.0-34.0) Mean Corpuscular Hemoglobin Concent 32.9 % (32.0-36.0) Red Cell Distribution Width 14.3 % (11.6-17.2) Platelet Count 91 TH/MM3 (150-450) Mean Platelet Volume 11.2 FL (7.0-11.0) Neutrophils (%) (Auto) 93.2 % (16.0-70.0) Lymphocytes (%) (Auto) 3.7 % (9.0-44.0) Monocytes (%) (Auto) 3.1 % (0.0-8.0) Eosinophils (%) (Auto) 0.0 % (0.0-4.0) Basophils (%) (Auto) 0.0 % (0.0-2.0) Neutrophils # (Auto) 13.4 TH/MM3 (1.8-7.7) Lymphocytes # (Auto) 0.5 TH/MM3 (1.0-4.8) Monocytes # (Auto) 0.5 TH/MM3 (0-0.9) Eosinophils # (Auto) 0.0 TH/MM3 (0-0.4) Basophils # (Auto) 0.0 TH/MM3 (0-0.2) CBC Comment AUTO DIFF Differential Comment AUTO DIFF CONFIRMED Blood Urea Nitrogen 18 MG/DL (7-18) Creatinine 1.01 MG/DL (0.60-1.30) Random Glucose 237 MG/DL (74-106) Calcium Level 8.1 MG/DL (8.5-10.1) Sodium Level 141 MEQ/L (136-145) Potassium Level 4.4 MEQ/L (3.5-5.1) Chloride Level 109 MEQ/L (98-107) Carbon Dioxide Level 21.3 MEQ/L (21.0-32.0) Anion Gap 11 MEQ/L (5-15) Estimat Glomerular Filtration Rate 70 ML/MIN (>89) Total Creatine Kinase 130 U/L (39-308) 170 U/L (39-308) Troponin I 1.73 NG/ML (0.02-0.05) 1.56 NG/ML (0.02-0.05) 2.52 NG/ML (0.02-0.05) Nasal Screen MRSA (PCR) MRSA NOT DETECTED (NOT Test 04/23/17 21:18 04/24/17 05:41 04/24/17 15:00 White Blood Count 17.1 TH/MM3 (4.0-11.0) 21.8 TH/MM3 (4.0-11.0) Red Blood Count 4.01 MIL/MM3 (4.50-5.90) 4.21 MIL/MM3 (4.50-5.90) Hemoglobin 12.0 GM/DL (13.0-17.0) 12.8 GM/DL (13.0-17.0) Hematocrit 36.2 % (39.0-51.0) 38.2 % (39.0-51.0) Mean Corpuscular Volume 90.2 FL (80.0-100.0) 90.6 FL (80.0-100.0) Mean Corpuscular Hemoglobin 30.0 PG (27.0-34.0) 30.3 PG (27.0-34.0) Mean Corpuscular Hemoglobin Concent 33.3 % (32.0-36.0) 33.5 % (32.0-36.0) Red Cell Distribution Width 14.1 % (11.6-17.2) 14.4 % (11.6-17.2) Platelet Count 93 TH/MM3 (150-450) 117 TH/MM3 (150-450) Mean Platelet Volume 12.1 FL (7.0-11.0) 12.1 FL (7.0-11.0) Prothrombin Time 11.0 SEC (9.8-11.6) Prothromb Time International Ratio 1.1 RATIO Activated Partial Thromboplast Time 30.9 SEC (24.3-30.1) 44.6 SEC (24.3-30.1) 92.0 SEC (24.3-30.1) Neutrophils (%) (Auto) 92.1 % (16.0-70.0) Lymphocytes (%) (Auto) 3.6 % (9.0-44.0) Monocytes (%) (Auto) 4.3 % (0.0-8.0) Eosinophils (%) (Auto) 0.0 % (0.0-4.0) Basophils (%) (Auto) 0.0 % (0.0-2.0) Neutrophils # (Auto) 20.1 TH/MM3 (1.8-7.7) Lymphocytes # (Auto) 0.8 TH/MM3 (1.0-4.8) Monocytes # (Auto) 0.9 TH/MM3 (0-0.9) Eosinophils # (Auto) 0.0 TH/MM3 (0-0.4) Basophils # (Auto) 0.0 TH/MM3 (0-0.2) CBC Comment DIFF FINAL Differential Comment Blood Urea Nitrogen 22 MG/DL (7-18) Creatinine 0.79 MG/DL (0.60-1.30) Random Glucose 197 MG/DL (74-106) Total Protein 6.2 GM/DL (6.4-8.2) Albumin 2.8 GM/DL (3.4-5.0) Calcium Level 8.5 MG/DL (8.5-10.1) Phosphorus Level 2.9 MG/DL (2.5-4.9) Magnesium Level 2.1 MG/DL (1.5-2.5) Alkaline Phosphatase 68 U/L (45-117) Aspartate Amino Transf (AST/SGOT) 62 U/L (15-37) Alanine Aminotransferase (ALT/SGPT) 53 U/L (12-78) Total Bilirubin 0.6 MG/DL (0.2-1.0) Sodium Level 140 MEQ/L (136-145) Potassium Level 4.8 MEQ/L (3.5-5.1) Chloride Level 109 MEQ/L (98-107) Carbon Dioxide Level 22.3 MEQ/L (21.0-32.0) Anion Gap 9 MEQ/L (5-15) Estimat Glomerular Filtration Rate 92 ML/MIN (>89) Troponin I 3.29 NG/ML (0.02-0.05) Triglycerides Level 47 MG/DL (42-150) Cholesterol Level 104 MG/DL (120-200) LDL Cholesterol 31 MG/DL (0-99) HDL Cholesterol 64.1 MG/DL (40.0-60.0) Cholesterol/HDL Ratio 1.62 RATIO Thyroid Stimulating Hormone 3rd Gen 1.860 uIU/ML (0.358-3.740) Result Diagram: 04/24/17 0541 04/24/17 0541 Microbiology Microbiology Date/Time Source Procedure Growth Status 04/22/17 20:35 Blood Line Aerobic Blood Culture - Preliminary NO GROWTH IN 2 DAYS Resulted 04/22/17 20:35 Blood Line Anaerobic Blood Culture - Preliminary NO GROWTH IN 2 DAYS Resulted 04/22/17 20:30 Blood Line Aerobic Blood Culture - Preliminary NO GROWTH IN 2 DAYS Resulted 04/22/17 20:30 Blood Line Anaerobic Blood Culture - Preliminary NO GROWTH IN 2 DAYS Resulted Imaging Last Impressions Chest X-Ray 04/25/17 0600 Signed Impressions: Service Date/Time: Tuesday, April 25, 2017 03:38 - CONCLUSION: New effusion and left lower lobe infiltrate with stable right effusion and right lower lobe infiltrate. Tha Bernal Jr., MD Abdomen/Pelvis CT 04/22/17 1836 Signed Impressions: Service Date/Time: Saturday, April 22, 2017 21:26 - CONCLUSION: 1. Partial consolidative infiltrate in the posterior right lower lung, a new finding from 04/10/17. 2. Mild constipation without dilated loops of small bowel. 3. 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 Tha Martin MD Chest CT 04/22/17 0000 Signed Impressions: Service Date/Time: Saturday, April 22, 2017 21:26 - CONCLUSION: 1. Unusual pattern of partially consolidative infiltrate in the posterior right lung with sharp linear demarcation between normal and abnormal lung which does not conform to a segmental anatomy. 2. Tiny bilateral pleural effusions. Tha Martin MD Assessment and Plan Disease Oriented Problem List: (1) Right lower lobe pneumonia, sepsis (2) Septic shock (3) Non-ST elevation [place] (4) Respiratory failure Comment: Resolved with treatment overnight (5) Dementia (6) Mesenteric artery stenosis, angina (7) TIA 2011 (8) CAD, stenting 2 (9) Peripheral vascular disease (10) COPD on home oxygen (11) Hypertension (12) Hyperlipidemia (13) Ise-dfqcwoo-lqcmcyeqx diabetes (14) BPH (15) Sleep apnea, CPAP use (16) Skin cancer excisions Symptom Scale: (1) Agitation 0-10 Scale: Unable to quantify (2) Restlessness 0-10 Scale: Unable to quantify Pertinent Non-Medical Issues Psychosocial: for 63 years, 1 daughter living, 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 Spiritual: The patient is not spiritual or christianity Legal: The patient lacks capacity for decision making; the patient's is his healthcare decision maker proxy/surrogate. Ethical issues impacting care: None . Important Contacts Patient's : Anca Saravia The home phone is [phone] BUT SHE IS CURRENTLY AT [facility] after hip surgery, and her DIRECT LINE there is [phone]. Daughter: Jennifer [phone] . Prognosis With moderate dementia, moderately severe oxygen dependent COPD, and now the third episode of pneumonia within the past 1.5 years, the patient's overall prognosis is poor. He is appropriate for hospice services if the goals remain comfort oriented, and the patient's has requested a consultation with the hospitalist admitting nurse. . Code Status: No Code Plan * DO NOT RESUSCITATE, per request of 04/23/17 * GOALS: The patient's reports that she and the patient had discussed end- of-life goals and wishes prior to him getting dementia, and that it was very clear to him then -- and is very clear to her now -- that he would not want to be resuscitated or placed on life support machines. The patient will transition to hospice today.. * DECISION-MAKING: The patient lacks capacity for decision making; the patient' s is his healthcare decision maker proxy/surrogate. * SYMPTOMS: The patient does not seem to be in pain, but he has had more agitation as he has become more alert, and he now is in restraints to keep him safe from falls and injury. * Palliative Care will continue to follow the patient during this hospitalization. . Time Spent Total Floor Time (mins): 39 Face to Face Time (mins): 11 >50% Counseling/Coord of Care: Yes (d/w Dr. Tirado) Attestation To help prompt me to consider important information that might be impacting today's encounter and assessment, information from prior notes written by myself or my colleagues may have been "brought forward" into today's note. My signature on this note, however, is an attestation that I personally performed the exam, history, and/or decision-making noted today, and, unless otherwise indicated, the interactions with patient, family, and staff as well as the review of records all occurred today. I also attest that the listed assessment and stated plan reflect my best clinical judgment today based on the combination of historical information, prior notes, and today's exam/ interactions. When time spent is documented, it refers only to time spent today by the signer, or if indicated, combined time spent today by collaborating physician/nurse practitioner. Bekah Cates MD Apr 25, 2017 09:53
[2017-04-25] MEDS: SODIUM CHLORIDE 0.9% FLUSH 10 ML FLUSH IV FLUSH SCH (09:54)
[2017-04-25] MEDS: CHLORHEXIDINE 0.12% (ORAL KIT) 15 ML CUP MT SCH (09:54)
[2017-04-25] MEDS ORDERED: MORPHINE SULFATE 2 MG/ML INJ IV PUSH PRN (10:15)
--- NOTE | 2017-04-25 10:20 | HHI.DS ---
Discharge Summary Admission Date Apr 22, 2017 at 22:53 Discharge Date: Apr 25, 2017 Admitting Diagnosis sepsis pneumonia Procedures None Brief History Date of encounter 04/23/2017 History of Present Illness HPI 89-year-old male with a medical history significant for 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 fib, dementia who was brought to the ER by EMS for worsening cough and shortness of breath which started this afternoon. Patient brought up brownish phlegm at home per daughter. He has also been complaining of abdominal cramping pain over the last few days off and on. He was in fact evaluated in the ER at [facility] on April 10 underwent imaging studies including a CAT scan which was unremarkable and was discharged home at that time. Today on arrival patient was short of breath with a cough and chills and left-sided abdominal pain. His O2 sats 88% initially on nasal cannula and he was placed on BiPAP. On arrival his systolic blood pressure was 250 heart rate 80s. Subsequently he had a drop in his blood pressure to the 90s systolic range. He received 2 L normal saline bolus and underwent imaging studies which revealed a right lower lobe infiltrate on CAT scan. He was initiated on empiric antibiotics with Rocephin and Zithromax as well as received Solu- Medrol. He did have a leukocytosis with a lactic acid of 3.[address] abdomen pelvis shows significant arteriosclerosis and he has a history of mesenteric angina. He did have a borderline elevation of his troponin. Patient was doing better with BiPAP on board. Critical care accepted patient for admission to the ICU. When I evaluated him in the ER he was on BiPAP with full facemask with O2 sats 100%. History was obtained by discussion with ER staff as well as patient's daughter at bedside. Reportedly patient's takes care of him however she was in rehabilitation following hip surgery. Per patient's daughter she does not think that his would want aggressive care however she will clarify with her and get back to us by the morning. She does not want any invasive procedures including central lines at this point. Patient will remain full CODE STATUS to a side effect vacation is obtained from patient's . Patient unable to give details of history due to significant dementia. PFSH Past Medical History Hx Anticoagulant Therapy: Yes Arthritis: No Asthma: No Autoimmune Disease: No Anxiety: No Depression: No Heart Rhythm Problems: Yes (UNKNOWN) Cancer: Yes (MELANOMAS OF SKIN REMOVED) Cardiac Catheterization: Yes Cardiovascular Problems: Yes (A-FIB) High Cholesterol: Yes Chemotherapy: No Chest Pain: No Congestive Heart Failure: Yes COPD: Yes Cerebrovascular Accident: No Coronary Artery Disease: Yes Diabetes: Yes Patient Takes Glucophage: No Diminished Hearing: Yes ([place]) Endocrine: No Gastrointestinal Disorders: Yes (DIARRHEA, CONSTIPATION) GERD: Yes Genitourinary: Yes (FREQUENCY, INCONTINENCE, BPH) Headaches: No Hepatitis: No Hiatal Hernia: No Hypertension: Yes Immune Disorder: No Implanted Vascular Access Dvce: Yes Kidney Stones: No Medical other: Yes (BPH,FREQUENT URINATION WHEN LYING DOWN,GERD) Musculoskeletal: No Neurologic: Yes Psychiatric: No Reproductive: No Respiratory: Yes (COPD) Immunizations Current: Yes Migraines: No Radiation Therapy: No Renal Failure: No Seizures: No Sleep Apnea: No Thyroid Disease: No Ulcer: No Past Surgical History Abdominal Surgery: No AICD: No Arteriovenous Shunt: No Body Medical Devices: HEART STENTS Cardiac Surgery: Yes (STENTS) Coronary Stent: Yes Ear Surgery: No Endocrine Surgery: No Eye Surgery: Yes (RIGHT EYE CATARACT) Genitourinary Surgery: Yes Gynecologic Surgery: No Hysterectomy: No Insulin Pump: No Joint Replacement: No Neurologic Surgery: No Oral Surgery: Yes (T & A) Pacemaker: No Thoracic Surgery: No Other Surgery: Yes (HAD COLONOSCOPY WITH POLYPS REMOVED 04/18-BENIGN) Family History Family Myocardial Infarction: Yes (MOTHER & FATHER) Social History Alcohol Use: No Tobacco Use: No (QUIT 07/2008) Substance Use: No Allergies-Medications (Allergen,Severity, Reaction): Coded Allergies: No Known Allergies (Verified Adverse Reaction, Unknown, 04/10/17) Reported Meds & Prescriptions Reported Meds & Active Scripts Active Metoprolol Tartrate 25 Mg Tab 25 Mg PO BID Isosorbide Mononitrate ER (Isosorbide Mononitrate) 30 Mg Phani 90 Mg PO DAILY@07 Reported Finasteride 5 Mg Tab 5 Mg PO DAILY Do not crush. Carafate (Sucralfate) 1 Gram Tab 1 Gm PO QID On empty stomach Mirtazapine 7.5 Mg Tab 15 Mg PO HS Plavix (Clopidogrel Bisulfate) 75 Mg Tab 75 Mg PO DAILY Gabapentin 300 Mg Cap 300 Mg PO HS Atorvastatin (Atorvastatin Calcium) 80 Mg Tab 80 Mg PO HS Review of Systems ROS Limitations: Poor Historian Except as stated in HPI: all other systems reviewed are Neg CBC/BMP: 04/24/17 0541 04/24/17 0541 Significant Findings Laboratory Tests Test 04/22/17 18:45 04/22/17 19:15 04/22/17 19:25 04/22/17 22:15 White Blood Count 20.1 TH/MM3 (4.0-11.0) Red Blood Count 4.43 MIL/MM3 (4.50-5.90) Platelet Count 146 TH/MM3 (150-450) Neutrophils (%) (Auto) 74.1 % (16.0-70.0) Neutrophils # (Auto) 15.0 TH/MM3 (1.8-7.7) Activated Partial Thromboplast Time 22.5 SEC (24.3-30.1) Random Glucose 253 MG/DL (74-106) Calcium Level 8.4 MG/DL (8.5-10.1) Estimat Glomerular Filtration Rate 82 ML/MIN (>89) Troponin I 0.13 NG/ML (0.02-0.05) B-Type Natriuretic Peptide 192 PG/ML (0-100) Lactic Acid Level 3.9 mmol/L (0.4-2.0) 2.7 mmol/L (0.4-2.0) Urine Protein 30 mg/dL (NEG-TRACE) Test 04/23/17 05:11 04/23/17 06:05 04/23/17 11:12 04/23/17 17:20 White Blood Count 14.3 TH/MM3 (4.0-11.0) Red Blood Count 3.95 MIL/MM3 (4.50-5.90) Hemoglobin 11.8 GM/DL (13.0-17.0) Hematocrit 35.7 % (39.0-51.0) Platelet Count 91 TH/MM3 (150-450) Mean Platelet Volume 11.2 FL (7.0-11.0) Neutrophils (%) (Auto) 93.2 % (16.0-70.0) Lymphocytes (%) (Auto) 3.7 % (9.0-44.0) Neutrophils # (Auto) 13.4 TH/MM3 (1.8-7.7) Lymphocytes # (Auto) 0.5 TH/MM3 (1.0-4.8) Random Glucose 237 MG/DL (74-106) Calcium Level 8.1 MG/DL (8.5-10.1) Chloride Level 109 MEQ/L (98-107) Estimat Glomerular Filtration Rate 70 ML/MIN (>89) Troponin I 1.73 NG/ML (0.02-0.05) 1.56 NG/ML (0.02-0.05) 2.52 NG/ML (0.02-0.05) Test 04/23/17 21:18 04/24/17 05:41 04/24/17 15:00 White Blood Count 17.1 TH/MM3 (4.0-11.0) 21.8 TH/MM3 (4.0-11.0) Red Blood Count 4.01 MIL/MM3 (4.50-5.90) 4.21 MIL/MM3 (4.50-5.90) Hemoglobin 12.0 GM/DL (13.0-17.0) 12.8 GM/DL (13.0-17.0) Hematocrit 36.2 % (39.0-51.0) 38.2 % (39.0-51.0) Platelet Count 93 TH/MM3 (150-450) 117 TH/MM3 (150-450) Mean Platelet Volume 12.1 FL (7.0-11.0) 12.1 FL (7.0-11.0) Activated Partial Thromboplast Time 30.9 SEC (24.3-30.1) 44.6 SEC (24.3-30.1) 92.0 SEC (24.3-30.1) Neutrophils (%) (Auto) 92.1 % (16.0-70.0) Lymphocytes (%) (Auto) 3.6 % (9.0-44.0) Neutrophils # (Auto) 20.1 TH/MM3 (1.8-7.7) Lymphocytes # (Auto) 0.8 TH/MM3 (1.0-4.8) Blood Urea Nitrogen 22 MG/DL (7-18) Random Glucose 197 MG/DL (74-106) Total Protein 6.2 GM/DL (6.4-8.2) Albumin 2.8 GM/DL (3.4-5.0) Aspartate Amino Transf (AST/SGOT) 62 U/L (15-37) Chloride Level 109 MEQ/L (98-107) Troponin I 3.29 NG/ML (0.02-0.05) Cholesterol Level 104 MG/DL (120-200) HDL Cholesterol 64.1 MG/DL (40.0-60.0) Imaging Last Impressions Chest X-Ray 04/25/17 0600 Signed Impressions: Service Date/Time: Tuesday, April 25, 2017 03:38 - CONCLUSION: New effusion and left lower lobe infiltrate with stable right effusion and right lower lobe infiltrate. Tha Bernal Jr., MD Abdomen/Pelvis CT 04/22/17 1836 Signed Impressions: Service Date/Time: Saturday, April 22, 2017 21:26 - CONCLUSION: 1. Partial consolidative infiltrate in the posterior right lower lung, a new finding from 04/10/17. 2. Mild constipation without dilated loops of small bowel. 3. 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 Tha Martin MD Chest CT 04/22/17 0000 Signed Impressions: Service Date/Time: Saturday, April 22, 2017 21:26 - CONCLUSION: 1. Unusual pattern of partially consolidative infiltrate in the posterior right lung with sharp linear demarcation between normal and abnormal lung which does not conform to a segmental anatomy. 2. Tiny bilateral pleural effusions. Tha Martin MD PE at Discharge GENERAL: 89-year-old male currently resting in bed i on simple mask [place] SKIN: Focused skin assessment warm/dry. Multiple upper extremity ecchymoses noted HEAD normocephalic/atraumatic EYES: No scleral icterus. No injection or drainage. NECK: Supple, trachea midline. No JVD or lymphadenopathy. CARDIOVASCULAR: Regular rate and rhythm. S1, S2 no S4. Without murmurs, gallops, or rubs. RESPIRATORY: Diffuse coarse crackles scattered appreciated in the bases bilaterally. No wheezing GASTROINTESTINAL: Abdomen soft, nondistended, currently nontender to palpation. Hypoactive bowel sounds are appreciated MUSCULOSKELETAL: No significant peripheral edema. NEURO: Cranial nerves II through XII appear to be grossly intact. More somnolent today. Transfer Summary Assessment and Plan Neuro/Psych: Dementia disorder NOS History of recurrent TIA Depression disorder Currently on acetaminophen 650 mg p.o. every 4 hours as needed fever/pain 1 through 10 Continue mirtazapine 15 mg at night/home medication Follow neuro status. On as needed haloperidol 2 mg IV every 6 hours and ziprasidone 10 mg IV every 12 hours 3 days maximum for agitation Cardiovascular: Atrial fibrillation currently rate controlled ASCVD Dyslipidemia History of congestive heart Coronary artery disease -involving left main, LAD, circumflex, RCA in 2011 cardiac catheterization Elevated troponin Restart metoprolol tartrate 25 mg p.o. twice daily/home medication increased to 50 mg p.o. twice daily Holding isosorbide mononitrate 90 g p.o.mg daily. Resume with Isordil dinitrate 20 mg 3 times daily Continue clopidogrel 75 mg p.o. daily Continue atorvastatin 80 mg p.o. daily for dyslipidemia Echocardiogram 2015 revealed EF 55-60%. Moderate TR. No regional wall motion abnormality. Repeat pending Consult -his regular director of healthcare systems for assistance in management. Heparin drip Pulmonary: Acute respiratory failure secondary to aspiration COPD Nasal cannula 2 L home judgment Nasal cannula to maintain saturations greater than equal to 92% Incentive spirometry while awake Albuterol/ipratropium aerosols every 6 hours with albuterol aerosols every 2 hours as needed dyspnea Budesonide 0.5/2 1 inhalation twice daily Methylprednisolone succinate 40 mg IV every 8 hours GI/liver: Abdominal pain NOS Constipation History of mesenteric angina History of colonic polyps Gastroesophageal reflux disease Hypoalbuminemia Nothing by mouth for now till improvement in respiratory status. Concern regarding aspiration speech therapy will evaluate and treat today. Advance diet as tolerated Renal/: BPH IV hydration, strict intake output, monitor and replete electro lites, follow BUN/creatinine. Manzano catheterization for accurate intake output. ID: Follow-up blood cultures. Empiric antibiotic coverage with IV ceftriaxone/metronidazole/azithromycin awaiting flu swab for influenza A and B. Suspect aspiration pneumonia. Endocrine: History of diabetes mellitus Watch for hyperglycemia, SSI for glycemic control if needed. With Novulog Heme: Leukocytosis Normocytic anemia Thrombocytopenia History of head and neck cancer Follow CBC. Monitor trends On heparin drip FEN: Replace electrolytes as clinically indicated MSK: Osteoarthritis PT/OT evaluate and treat Access -Utilize peripheral IV. Central line if indicated Patient currently actively dying with hypotension, non-STEMI and aspiration pneumonia. Transition to hospice today. Discussed with Dr. Cates. Hospital Course 89-year-old male with a medical history significant for 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 fib, dementia who was brought to the ER by EMS for worsening cough and shortness of breath which started this afternoon. Patient brought up brownish phlegm at home per daughter. He has also been complaining of abdominal cramping pain over the last few days off and on. He was in fact evaluated in the ER at [facility] on April 10 underwent imaging studies including a CAT scan which was unremarkable and was discharged home at that time. Today on arrival patient was short of breath with a cough and chills and left-sided abdominal pain. His O2 sats 88% initially on nasal cannula and he was placed on BiPAP. On arrival his systolic blood pressure was 250 heart rate 80s. Subsequently he had a drop in his blood pressure to the 90s systolic range. He received 2 L normal saline bolus and underwent imaging studies which revealed a right lower lobe infiltrate on CAT scan. He was initiated on empiric antibiotics with Rocephin and Zithromax as well as received Solu- Medrol. He did have a leukocytosis with a lactic acid of 3.[address] abdomen pelvis shows significant arteriosclerosis and he has a history of mesenteric angina. He did have a borderline elevation of his troponin. Patient was doing better with BiPAP on board. Critical care accepted patient for admission to the ICU. When I evaluated him in the ER he was on BiPAP with full facemask with O2 sats 100%. History was obtained by discussion with ER staff as well as patient's daughter at bedside. Reportedly patient's takes care of him however she was in rehabilitation following hip surgery. Per patient's daughter she does not think that his would want aggressive care however she will clarify with her and get back to us by the morning. She does not want any invasive procedures including central lines at this point. Patient will remain full CODE STATUS to a side effect vacation is obtained from patient's . Patient unable to give details of history due to significant dementia. 04/23: Currently off BiPAP and on room air. Weaning off vasopressors. Patients can concern that the weather is getting cooler. Appears to be back at baseline neurologically. 04/24: Able. Currently on 2 L nasal cannula. Troponin trending up or currently 3.2. On heparin drip and clopidogrel 75 mg daily. Complains of shortness of breath and chest pain. [employer] has been consulted. Echocardiogram still pending. to discuss with hospice this afternoon possible transition of care. 04/25: Minimally responsive. Hypotensive. Plan to transfer [facility] today if able. Pt Condition on Discharge: Guarded Discharge Disposition: Hospice/Med Facility Discharge Instructions DIET: Follow Instructions for: As Tolerated, No Restrictions Speech Therapy-Diet Recommends: Mechanical Soft, [place] Thickened Liquids Activities you can perform: Continue Bedrest Wagner Tirado MD Apr 25, 2017 10:20
== END 2017-04-25 13:15 | disposition hospice, inpatient (51) | DRG 871 ==
LOC: NEPE 17:37 → NEDA 22:53 → HIME 04-23 05:35
PROVIDERS: ADMIT Internal Medicine Critical Care Medicine; ATTEND Internal Medicine Critical Care Medicine
PROC: 5A09357 Assistance with Respiratory Ventilation, Less than 24 Consecutive Hours, Continuous Positive Airway Pressure (ICD-10-PCS; principal; 2017-04-22)
DX: A41.9 Sepsis, unspecified organism (principal); J18.9 Pneumonia, unspecified organism; J96.00 Acute respiratory failure, unspecified whether with hypoxia or hypercapnia; I21.4 Non-ST elevation (NSTEMI) myocardial infarction; R65.21 Severe sepsis with septic shock; I11.0 Hypertensive heart disease with heart failure; J44.0 Chronic obstructive pulmonary disease with (acute) lower respiratory infection; I50.9 Heart failure, unspecified; K55.1 Chronic vascular disorders of intestine; E11.51 Type 2 diabetes mellitus with diabetic peripheral angiopathy without gangrene; D69.6 Thrombocytopenia, unspecified; F03.90 Unspecified dementia, unspecified severity, without behavioral disturbance, psychotic disturbance, mood disturbance, and anxiety; Z99.81 Dependence on supplemental oxygen; I48.91 Unspecified atrial fibrillation; I25.10 Atherosclerotic heart disease of native coronary artery without angina pectoris; K21.9 Gastro-esophageal reflux disease without esophagitis; N40.1 Benign prostatic hyperplasia with lower urinary tract symptoms; N39.498 Other specified urinary incontinence; R35.0 Frequency of micturition; K59.00 Constipation, unspecified; E78.5 Hyperlipidemia, unspecified; G47.30 Sleep apnea, unspecified; D64.9 Anemia, unspecified; E88.09 Other disorders of plasma-protein metabolism, not elsewhere classified; M19.90 Unspecified osteoarthritis, unspecified site; H91.90 Unspecified hearing loss, unspecified ear; F32.9 Major depressive disorder, single episode, unspecified; Z51.5 Encounter for palliative care; Z66 Do not resuscitate; Z78.1 Physical restraint status; Z82.49 Family history of ischemic heart disease and other diseases of the circulatory system; Z85.820 Personal history of malignant melanoma of skin; Z86.73 Personal history of transient ischemic attack (TIA), and cerebral infarction without residual deficits; Z87.891 Personal history of nicotine dependence; Z95.5 Presence of coronary angioplasty implant and graft
CPT/HCPCS: 71045; 71260; 74177; 80048; 80053; 80061; 81001; 82550; 82948; 83605; 83735; 83880; 84100; 84443; 84484; 85025; 85027; 85610; 85730; 87040; 87641; 93005; 93306; 94002; 94003; 94640; 94664; 96361; 96365; 96375; J0456; J0696; J1630; J1644; J2920; J2930; J3486; J7030; J7040; J7050; Q9967